=== PATIENT | female | born 1940 | race Caucasian/White ===

== ENCOUNTER 2016-12-27 11:10 | Observation (INO) | payer MEDICARE, BC ==
[2016-12-27] MEDS ORDERED: SODIUM CHLORIDE 0.9% 1,000 ML IV STA (11:51)
[2016-12-27] MEDS ORDERED: ASPIRIN 81 MG CHEW PO STA (11:51)
[2016-12-27 12:05] LABS: Basophils % (A) 1 %; CH 29.5; CHCM 31.6; Eosinophils # (A) 0.2 k/uL (0-0.7); Eosinophils % (A) 3 %; HCT 53.7 % (34.0-46.0); HDW 2.21; HGB 17.8 gm/dL (11.4-16.0); Luc # (Auto) 0.23; Luc % (Auto) 4; Lymphocytes # (A) 0.8 k/uL (1.0-4.8); Lymphocytes % (A) 13 %; MCHC 33.1 g/dL (31.0-37.0); MCV 93.9 fL (80.0-100.0); Mean Platelet Volume 7.4; Monocytes # (A) 0.4 k/uL (0-1.0); Monocytes % (A) 6 %; Neutrophils # (A) 4.7 k/uL (1.3-7.7); Neutrophils % (A) 74 %; RBC 5.72 m/uL (3.80-5.40); RDW 14.7 % (11.5-15.5); WBC 6.3 k/uL (3.8-10.6); WBC (Perox) 6.64
[2016-12-27 12:16] LABS: ALT 33 U/L (9-52); AST 17 U/L (14-36); Alkaline Phosphatase 130 U/L (38-126); Anion Gap 12 mmol/L; Blood Urea Nitrogen 28 mg/dL (7-17); Carbon Dioxide 25 mmol/L (22-30); Chloride 108 mmol/L (98-107); Glucose 109 mg/dL (74-99); Magnesium 2.2 mg/dL (1.6-2.3); Non-African American GFR(MDRD) >60 (>60 ml/min/1.73 sqM); Potassium 4.4 mmol/L (3.5-5.1); Sodium 145 mmol/L (137-145); Total Bilirubin 0.9 mg/dL (0.2-1.3); Total Protein 7.3 g/dL (6.3-8.2)
[2016-12-27 12:17] LABS: INR 1.1 (<1.1); Prothrombin Time 11.2 sec (9.0-12.0)
[2016-12-27 12:26] LABS: Creatine Kinase 85 U/L (30-135)
[2016-12-27 12:40] LABS: Creatine Kinase MB 2.3 ng/mL (0.0-2.4); Troponin I <0.012 ng/mL (0.000-0.034)
--- NOTE | 2016-12-27 14:40 | ED ---
Chest Pain HPI - General Chief Complaint: Chest Pain Stated Complaint: HEAVYNESS IN CHEST, LEFT ARM TINGLING Time Seen by Provider: 12/27/16 11:34 Source: patient Mode of arrival: wheelchair Limitations: no limitations - History of Present Illness Initial Comments: MG chest pain for the last 2 days complaining about the left arm pain actually started tingling in the left forearm saying a chest pain is totally gone right now and there is no tingling in the denies any nausea no vomiting no cold sweats no neck pain no jaw pain and she denies any history of coronary artery disease. No fever no chills no cough no sputum production signs of TIA or CVA - Related Data Home Medications Medication Instructions Recorded Confirmed Aspirin [Adult Low Dose Aspirin EC] 81 mg PO DAILY 12/27/16 12/27/16 Latanoprost [Xalatan 0.005%] 1 drop RIGHT EYE BID 12/27/16 12/27/16 Loteprednol Etabonate [Lotemax] 1 drop LEFT EYE HS 12/27/16 12/27/16 Montelukast Sodium [Singulair] 10 mg PO DAILY 12/27/16 12/27/16 Multivitamins, Thera [Multivitamin 1 tab PO DAILY 12/27/16 12/27/16 (formulary)] Naproxen Sodium [Aleve] 220 mg PO DAILY PRN 12/27/16 12/27/16 Propylene Glycol/Peg 400/Pf 1 drop LEFT EYE DAILY PRN 12/27/16 12/27/16 [Systane 0.3-0.4% Eye Drops] Refresh Pm Eye Ointment 1 applic RIGHT EYE BID 12/27/16 12/27/16 Travoprost [Travatan Z 0.004%] 1 drop RIGHT EYE HS 12/27/16 12/27/16 amLODIPine/ATORVASTATIN [Caduet 10 1 tab PO DAILY 12/27/16 12/27/16 mg-20 mg Tablet] Allergies Allergy/AdvReac Type Severity Reaction Status Date / Time No Known Allergies Allergy Verified 12/27/16 12:25 Review of Systems ROS Statement: Those systems with pertinent positive or pertinent negative responses have been documented in the HPI. ROS Other: All systems not noted in ROS Statement are negative. 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 Skin: Skin is warm and dry and no rashes or lesions are noted. Eye: Pupils are equal, round and reactive to light, extra-ocular movements are intact; there is normal conjunctiva bilaterally. Ears, nose, mouth and throat: There are moist mucous membranes and no oral lesions. Neck: The neck is supple, there is no tenderness or JVD. Cardiovascular: There is a regular rate and rhythm. No murmur, rub or gallop is appreciated. Respiratory: To auscultation bilateral, noticed some crackles at the bases Gastrointestinal: Soft, non-distended, non-tender abdomen without masses or organomegaly noted. There is no rebound or guarding present. Bowel sounds are unremarkable. Back: There is no tenderness to palpation in the midline. There is no obvious deformity. Musculoskeletal: Normal ROM, no tenderness, There is no pedal edema. There is no calf tenderness or swelling. No cords were appreciated. Neurological: CN II-XII intact, Cranial nerves III through XII are intact. There are no obvious motor or sensory deficits. Coordination appears grossly intact. Speech is normal. Psychiatric: Cooperative, appropriate mood & affect, normal judgment. Limitations: no limitations Course Vital Signs 12/27/16 12/27/16 12/27/16 11:20 12:22 13:00 Temperature 97.8 F Pulse Rate 80 84 84 Respiratory 20 18 18 Rate Blood Pressure 178/78 165/82 148/78 O2 Sat by Pulse 98 93 L 94 L Oximetry 12/27/16 14:56 Temperature 98.2 F Pulse Rate 86 Respiratory 18 Rate Blood Pressure 153/67 O2 Sat by Pulse 93 L Oximetry Labs and x-rays were discussed with the patient, CBC, CMP, troponin, EKG are unremarkable chest x-ray showed cardiomegaly COPD and there is a question of a chest pathology radiologist recommended doing chest CT and we ordered the chest CT, these were discussed with the patient and considering her chest pain plan to admit her heparinize her consult cardiology and Dr. Helms for any lung pathology Critical Care Time Total Critical Care Time: 35 Critical Care Time: She had a chest pain off and on for last 2 days pain down the left arm pain that she is a ex-smoker there are quite a few risk factors though she hasn't no chest pain at this point her CBC troponin S compress metabolic panel they look normal ROM chest x-ray shows cardiomegaly's and COPD and a suspicion of lung pathology. Radiology recommended chest CT which was ordered the patient was informed patient agrees to come in the hospital and did do the chest CT both will consult cardiology for chest pain" Disposition Clinical Impression: Chest pain, Cardiomegaly, COPD (chronic obstructive pulmonary disease) Disposition: ADMITTED IP TO THIS HOSP Condition: Fair
--- NOTE | 2016-12-27 15:45 | XR ---
EXAMINATION TYPE: XR chest 2V DATE OF EXAM: 12/27/2016 12:04 PM HISTORY: Chest Pain. REFERENCE: NONE. FINDINGS: The lungs are overinflated. There is partial eventration of the right hemidiaphragm. There is a masslike density posteriorly on the left. This may represent a Bochdalek hernia. Left pleural ma ss is not excluded. Heart size upper limits of normal. There are increased interstitial markings like ly on the basis of fibrosis. Pleural spaces are clear. IMPRESSION: 1. CARDIOMEGALY. 2. COPD. 3. 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 A CT SCAN OF THE CHEST WOULD BE SUGGESTED TO EXCLUDE NEOPLA SM.
[2016-12-27] MEDS ORDERED: RX INFO: IV CONTRAST WAS GIVEN 1 EACH MISC MISCELLANE PRN (15:55)
[2016-12-27] MEDS ORDERED: NITROGLYCERIN SL TABS 0.4 MG TAB SUBLINGUAL PRN (16:02)
[2016-12-27] MEDS ORDERED: MORPHINE SULFATE 2 MG/ML SYRINGE IVP PRN (16:02)
[2016-12-27] MEDS ORDERED: HEPARIN SODIUM,PORCINE 5,000 UNIT/ML 1 ML VIAL IV ONE (16:02)
[2016-12-27] MEDS ORDERED: ARTIFICIAL TEARS-HYPROMELLOSE DROPS 15 ML BTL LEFT EYE PRN (16:06)
[2016-12-27] MEDS ORDERED: HEPARIN SODIUM,PORCINE/D5W PMX 25,000 UNIT in DEXTROSE/WATER 1 500ML.BAG IV SCH (16:15)
--- NOTE | 2016-12-27 16:40 | CT ---
EXAMINATION TYPE: CT chest w con DATE OF EXAM: 12/27/2016 4:29 PM COMPARISON: NONE HISTORY: Chest heaviness x couple days, abnormal chest x-ray. CT DLP: 603.00 mGycm Automated exposure control for dose reduction was used. CONTRAST: CT scan of the chest is performed with IV Contrast, patient injected with 100 mL of Omnipaque 300. FINDINGS: There is apical scarring present bilaterally. There are emphysematous changes throughout the lungs. There is a 5 mm noncalcified nodule in the lateral basal segment of the right lower lobe, best seen o n image 50. There are bilateral areas of consolidation in the left lingula as well as the right middl e lobe. There is a 5.6 mm noncalcified nodule in the right middle lobe, best seen on image 46. There is a 4.3 mm noncalcified nodule in the lateral aspect of the left lingula, best seen on image 46. The re is a calcified granuloma in the lateral basal segment of the left lower lobe, best seen on image 4 7. There is no significant axillary, internal mammary, mediastinal or hilar adenopathy. The heart is mildly enlarged. There is no pleural or pericardial fluid. There is a partial eventration of the left hemidiaphragm which is what accounts for the x-ray abnorma lity. Visualized portions of the upper abdomen are normal. There is mild hypertrophic spondylosis in the spine. IMPRESSION: 1. PARTIAL EVENTRATION OF THE LEFT HEMIDIAPHRAGM. 2. MULTIPLE NONCALCIFIED PULMONARY NODULES AND ONE CALCIFIED PULMONARY NODULES. 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 3 MONTHS FOLLOW-UP WOULD BE SUGGESTED. 3. MILD CARDIOMEGALY. 4. MINIMAL DEGENERATIVE CHANGE IN THE SPINE.
[2016-12-27 16:59] VITALS: BMI 27.1
[2016-12-27 18:38] LABS: Creatine Kinase 81 U/L (30-135)
[2016-12-27 18:51] LABS: Troponin I <0.012 ng/mL (0.000-0.034)
[2016-12-27 19:55] VITALS: RESP 16
[2016-12-27] MEDS ORDERED: prednisoLONE ACETATE 1% OPHTH DROPS 1 ML BTL LEFT EYE SCH (21:00)
[2016-12-27] MEDS ORDERED: ATORVASTATIN 40 MG TAB PO SCH (21:00)
[2016-12-27] MEDS ORDERED: NON-FORMULARY DRUG (Travoprost [Travatan Z 0.004%] 1 DROP) RIGHT EYE SCH (21:00)
[2016-12-27] MEDS: LATANOPROST 0.005% OPHTH DROPS 2.5 ML BTL RIGHT EYE SCH (22:06)
[2016-12-27] MEDS: ARTIFICIAL TEARS OINTMENT 3.5 GM TUBE RIGHT EYE SCH (22:07)
[2016-12-27 23:40] LABS: Creatine Kinase 87 U/L (30-135)
[2016-12-27 23:54] LABS: Creatine Kinase MB 1.9 ng/mL (0.0-2.4); Troponin I <0.012 ng/mL (0.000-0.034)
[2016-12-28 06:12] LABS: Cholesterol 109 mg/dL (<200); HDL Cholesterol 43 mg/dL (40-60); Triglycerides 95 mg/dL (<150)
[2016-12-28] MEDS ORDERED: amLODIPine 10 MG TAB PO SCH (09:00)
[2016-12-28] MEDS ORDERED: ASPIRIN 325 MG TAB PO SCH (09:00)
[2016-12-28] MEDS ORDERED: ATORVASTATIN 20 MG TAB PO SCH (09:00)
[2016-12-28] MEDS ORDERED: MONTELUKAST 10 MG TAB PO SCH (09:00)
[2016-12-28] MEDS ORDERED: AMINOPHYLLINE 500 MG/20 ML VIAL IV PRN (09:01)
[2016-12-28] MEDS ORDERED: REGADENOSON 0.4 MG/5 ML SYRINGE IV ONE (09:01)
--- NOTE | 2016-12-28 11:19 | CONS ---
DATE OF CONSULTATION: This is a 76-year-old lady with a history of hypertension, hypercholesterolemia and congenital bilateral facial nerve palsy. She is not a very active person. She has been doing fairly well, but for the past one week or so, she has been experiencing pressure in the chest that she describes as a sensation of heaviness as if somebody is pushing on her chest. These symptoms have been very random, not necessarily with physical activity. She also had some left arm pain and a sensation of tingling and came into the hospital. The pain has now resolved. She is comfortable, resting. She also carries a diagnosis of bronchial asthma and used to be a smoker who quit smoking more than 20 years ago. She is comfortable and without symptoms at the time of my evaluation. PAST MEDICAL HISTORY: 1. Hypertension. 2. Hypercholesterolemia. 3. Bronchial asthma. 4. No documented evidence of prior myocardial infarction or CVA. 5. She is status post cataract surgery and also surgery for her eyelids. Medications at home include Caduet which is amlodipine and atorvastatin combination 10/20 one tablet daily, multivitamins, Naproxen. She also takes some aspirin 81 mg daily. ALLERGIES: None. REVIEW OF SYSTEMS: Unremarkable other than the above-mentioned facts. On examination, blood pressure is 138/70, pulse rate is 70 per minute. When she came in the pressure was elevated. HEENT: Unremarkable. Fundus was not examined by me. There is evidence of some facial nerve palsy noted bilaterally. Neck is supple. There is no JVD or carotid bruit. Heart exam reveals S1 and S2 heard normally without a rub, murmur or gallop. Lungs are clear. Abdomen is soft, nontender. Lower extremities reveal normal pulses. No edema. Central nervous system is normal. EKG revealed sinus mechanism. No acute changes. Laboratory data reveals that her enzymes are normal. Also there was some abnormality on the chest x-ray, CAT scan revealed some granulomatous changes. Patient's troponin levels are all within normal limits. IMPRESSION: 1. Chest pain syndrome, cannot exclude coronary artery disease in a patient with hypertension, hyperlipidemia, and 76 years of age. 2. Hypertension. 3. Hyperlipidemia. 4. History of congenital facial nerve palsy. RECOMMENDATIONS: I am recommending that we will discontinue IV heparin, perform a Lexiscan stress test and echocardiogram and if these are normal, she can be discharged. Will continue all her other medications. I discussed my thoughts in detail with the patient. Thank you very much for the consult.
--- NOTE | 2016-12-28 11:33 | NM ---
EXAMINATION TYPE: NM stress lexiscan cardiolite DATE OF EXAM: 12/28/2016 11:19 AM COMPARISON: CT chest from yesterday HISTORY: Chest pain per order. History of hypertension, tobacco use remotely, and hypercholesteremia presents with chest pain and shortness of breath. TECHNIQUE: After the intravenous administration of 10.8 mCi Tc 99m Sestamibi - Cardiolite resting SP ECT images acquired 45 minutes post injection. The patient received 0.4mg Lexiscan, 27 mCi Tc 99m Sestamibi - Stress images obtained 30 minutes post injection FINDINGS: Review of stress and rest SPECT images demonstrates no distinct perfusion abnormality. Gated analysi s shows normal wall motion with an estimated left ventricular ejection fraction of 57 %. IMPRESSION: No scintigraphic evidence for reversible ischemia.
--- NOTE | 2016-12-28 11:57 | EST ---
DATE OF SERVICE: 12/28/2016 AGE: 76Y SEX: F HT: 66" WT: 168 lbs. Protocol Eligio: Other: Lexiscan Cardiolite Stage: Dur. of Exercise: *Heart Rate Blood Pressure *Rest: 69 Rest: 166/92 * *Max. Achieved: 84 Maximum BP: 166/92 85% PMHR: 122 100% PMHR: 144 *METS: INDICATIONS: MEDICATIONS: Patient was given Lexiscan injection over a period of 15 seconds. Resting EKG shows normal sinus rhythm with normal AR interval and QRS duration and normal ST-T waves. No ST segment depression suggestive of ischemia was noted. The results of the nuclear study will follow.
[2016-12-28] MEDS ORDERED: MULTIVITAMINS, THERA 1 EACH TAB PO SCH (12:00)
[2016-12-28] MEDS: LATANOPROST 0.005% OPHTH DROPS 2.5 ML BTL RIGHT EYE SCH (12:15)
[2016-12-28] MEDS: ARTIFICIAL TEARS OINTMENT 3.5 GM TUBE RIGHT EYE SCH (12:16)
[2016-12-28 12:30] VITALS: BP 170/86; PULSE 76; TEMP 97.9
--- NOTE | 2016-12-28 13:51 | ECHOF ---
Referral Reason:htn, SOB MEASUREMENTS -------- HEIGHT: 167.6 cm WEIGHT: 76.2 kg BP: 138/71 RVIDd: 2.6 cm (< 3.3) IVSd: 1.3 cm (0.6 - 1.1) LVIDd: 3.1 cm (3.9 - 5.3) LVPWd: 1.2 cm (0.6 - 1.1) IVSs: 1.7 cm LVIDs: 2.3 cm LVPWs: 1.4 cm LA Diam: 3.0 cm (2.7 - 3.8) LAESV Index (A-L): 19.40 ml/m Ao Diam: 2.7 cm (2.0 - 3.7) AV Cusp: 1.7 cm (1.5 - 2.6) LA Diam: 2.6 cm (2.7 - 3.8) MV EXCURSION: 13.059 mm (> 18.000) MV EF SLOPE: 59 mm/s (70 - 150) EPSS: 0.6 cm MV E Abebe: 0.57 m/s MV DecT: 198 ms MV A Abebe: 0.89 m/s MV E/A Ratio: 0.64 RAP: 5.00 mmHg RVSP: 41.32 mmHg FINDINGS -------- Sinus rhythm. This was a technically good study. There is mild concentric left ventricular hypertrophy. Overall left ventricular systolic function is normal with, an EF between 55 - 60 %. The right ventricle is normal in size. Normal LA size by volume 22+/-6 ml/m2. The right atrium is normal in size. Aortic valve is trileaflet and is mildly thickened. There is mild aortic regurgitation. The mitral valve leaflets are mildly thickened. Mild mitral annular calcification present. There is trace mitral regurgitation. Mild tricuspid regurgitation present. There is mild pulmonary hypertension. The right ventricular systolic pressure, as measured by Doppler, is 41.32mmHg. Trace/mild (physiologic) pulmonic regurgitation. The aortic root size is normal. Normal inferior vena cava with normal inspiratory collapse consistent with estimated right atrial pressure of 5 mmHg. There is no pericardial effusion. CONCLUSIONS -------- 1. Sinus rhythm. 2. The mitral valve leaflets are mildly thickened. 3. Mild mitral annular calcification present. 4. There is trace mitral regurgitation. 5. Mild tricuspid regurgitation present. 6. There is mild pulmonary hypertension. 7. The right ventricular systolic pressure, as measured by Doppler, is 41.32mmHg. 8. Trace/mild (physiologic) pulmonic regurgitation. 9. The aortic root size is normal. 10. Normal inferior vena cava with normal inspiratory collapse consistent with estimated right atrial pressure of 5 mmHg. 11. There is no pericardial effusion. 12. This was a technically good study. 13. There is mild concentric left ventricular hypertrophy. 14. Overall left ventricular systolic function is normal with, an EF between 55 - 60 %. 15. The right ventricle is normal in size. 16. Normal LA size by volume 22+/-6 ml/m2. 17. The right atrium is normal in size. 18. Aortic valve is trileaflet and is mildly thickened. 19. There is mild aortic regurgitation. [employer] MECH[employer]IC: Mukund Garcia RDCS
--- NOTE | 2016-12-28 14:49 | P.HPIM ---
History of Present Illness H&P Date: 12/28/16 Chief Complaint: Chest pain This is a 76-year-old female with past medical history significant for hypertension, hyperlipidemia, and congenital bilateral facial nerve palsy who presented to the emergency room with chest pain. Patient described her pain as heaviness in the middle of her chest. She has been having this pain on and off for the past couple of weeks. Yesterday the pain was approximately 8 out of 10 in severity. It radiated to her shoulder. She had some numbness in her arm and diaphoresis. She denies dizziness or shortness of breath. In the emergency room, 12-lead EKG showed no acute ischemic changes. Serial troponin were negative 3 sets. Patient underwent a computed tomography scan of the chest showing evidence of underlying COPD with multiple small pulmonary nodules Thought to be attributed to an old granulomatous disease. Repeat computed tomography scan of the chest in 3 months recommended. Patient was placed on observation was seen and evaluated by cardiology. She underwent a Lexiscan stress test that was negative. She was cleared for discharge home. She will follow-up with her primary care physician as directed. All other medical problems stable during this hospitalization. Review of Systems Review of system: 14 points review of systems were obtained and were negative except to what were mentioned in the HPI. 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, LEFT EYE CATARACT REMOVED, NO SITE IN RIGHT EYE History of Any Multi-Drug Resistant Organisms: None Reported Past Surgical History: Tonsillectomy, Tubal Ligation Additional Past Surgical History / Comment(s): eye surgery Past Anesthesia/Blood Transfusion Reactions: No Reported Reaction Past Psychological History: No Psychological Hx Reported Smoking Status: Former smoker Past Alcohol Use History: None Reported Past Drug Use History: None Reported - Past Family History Father Additional Family Medical History / Comment(s): BONE AND LIVER CANCER Mother Additional Family Medical History / Comment(s): MOTHER AT 25 YEARS OLD, UNKNOWN Medications and Allergies Home Medications Medication Instructions Recorded Confirmed Type Aspirin [Adult Low Dose Aspirin EC] 81 mg PO DAILY 12/27/16 12/27/16 History Latanoprost [Xalatan 0.005%] 1 drop RIGHT EYE BID 12/27/16 12/27/16 History Loteprednol Etabonate [Lotemax] 1 drop LEFT EYE HS 12/27/16 12/27/16 History Montelukast Sodium [Singulair] 10 mg PO DAILY 12/27/16 12/27/16 History Multivitamins, Thera [Multivitamin 1 tab PO DAILY 12/27/16 12/27/16 History (formulary)] Naproxen Sodium [Aleve] 220 mg PO DAILY PRN 12/27/16 12/27/16 History Propylene Glycol/Peg 400/Pf 1 drop LEFT EYE DAILY PRN 12/27/16 12/27/16 History [Systane 0.3-0.4% Eye Drops] Refresh Pm Eye Ointment 1 applic RIGHT EYE BID 12/27/16 12/27/16 History Travoprost [Travatan Z 0.004%] 1 drop RIGHT EYE HS 12/27/16 12/27/16 History amLODIPine/ATORVASTATIN [Caduet 10 1 tab PO DAILY 12/27/16 12/27/16 History mg-20 mg Tablet] Allergies Allergy/AdvReac Type Severity Reaction Status Date / Time No Known Allergies Allergy Verified 12/27/16 12:25 Physical Exam Vitals: Vital Signs Temp Pulse Pulse Resp BP Pulse Ox 12/28/16 12:00 97.9 F 76 76 16 170/86 94 L 12/28/16 08:00 98.0 F 76 70 16 139/71 93 L 12/28/16 04:00 98.2 F 76 16 187/70 93 L 12/28/16 00:00 16 12/27/16 23:53 97.9 F 74 16 119/69 93 L 12/27/16 20:33 97.6 F 87 16 140/74 98 12/27/16 20:00 16 12/27/16 19:54 97.6 F 87 16 140/74 98 12/27/16 17:36 97.3 F L 108 H 18 178/88 12/27/16 16:28 97.3 F L 16 178/88 Intake and Output 12/27/16 12/28/16 12/28/16 22:59 06:59 14:59 Intake Total 665 Balance 665 Intake: IV 415 Heparin Sodium,Porcine/ 115 D5w Pmx 25,000 unit In Dextrose/Water 1 500ml. bag @ 12 UNITS/KG/HR 18. 28 mls/hr IV .Q24H [facility] Rx #:[id number] Sodium Chloride 0.9% 1, 300 000 ml @ 50 mls/hr IV . Q20H [facility] Rx#:[id number] Oral 250 Other: Voiding Method Toilet Toilet Toilet # Voids 1 2 2 Weight 76.204 kg General: The patient is awake and alert, in no distress Eye: there is normal conjunctiva bilaterally. Neck: The neck is supple, there is no JVD. Cardiovascular: Normal S1-S2, no S3-S4, no murmurs. Respiratory: Lungs clear to auscultation bilaterally Gastrointestinal: Abdomen is soft, nontender Musculoskeletal: There is no pedal edema. Results CBC & Chem 7: 12/27/16 11:38 12/27/16 11:38 Labs: Abnormal Lab Results - Last 24 Hours (Table) 12/27/16 12/28/16 Range/Units 22:53 05:31 APTT 65.9 H 55.9 H (22.0-30.0) sec Thrombosis Risk Factor Assmnt - Choose All That Apply Any of the Below Risk Factors Present?: No Other Risk Factors: Yes Each Risk Factor Represents 3 Points: Age 75 years or older Other congenital or acquired thrombophilia - If yes, enter type in comment: No Thrombosis Risk Factor Assessment Total Risk Factor Score: 3 Thrombosis Risk Factor Assessment Level: Moderate Risk Assessment and Plan Plan: This is a 76-year-old female with past medical history significant for hypertension, hyperlipidemia, and congenital bilateral facial nerve palsy who presented to the emergency room with chest pain. Patient described her pain as heaviness in the middle of her chest. She has been having this pain on and off for the past couple of weeks. Yesterday the pain was approximately 8 out of 10 in severity. It radiated to her shoulder. She had some numbness in her arm and diaphoresis. She denies dizziness or shortness of breath. In the emergency room, 12-lead EKG showed no acute ischemic changes. Serial troponin were negative 3 sets. Patient underwent a computed tomography scan of the chest showing evidence of underlying COPD with multiple small pulmonary nodules Thought to be attributed to an old granulomatous disease. Repeat computed tomography scan of the chest in 3 months recommended. Patient was placed on observation was seen and evaluated by cardiology. She underwent a Lexiscan stress test that was negative. She was cleared for discharge home. She will follow-up with her primary care physician as atelectasis.
--- NOTE | 2016-12-28 14:50 | P.DS ---
Providers Date of admission: 12/27/16 16:15 Expected date of discharge: 12/28/16 Attending physician: Zena Zavala Primary care physician: Scott [facility] Course: This is a 76-year-old female with past medical history significant for hypertension, hyperlipidemia, and congenital bilateral facial nerve palsy who presented to the emergency room with chest pain. Patient described her pain as heaviness in the middle of her chest. She has been having this pain on and off for the past couple of weeks. Yesterday the pain was approximately 8 out of 10 in severity. It radiated to her shoulder. She had some numbness in her arm and diaphoresis. She denies dizziness or shortness of breath. In the emergency room, 12-lead EKG showed no acute ischemic changes. Serial troponin were negative 3 sets. Patient underwent a computed tomography scan of the chest showing evidence of underlying COPD with multiple small pulmonary nodules Thought to be attributed to an old granulomatous disease. Repeat computed tomography scan of the chest in 3 months recommended. Patient was placed on observation was seen and evaluated by cardiology. She underwent a Lexiscan stress test that was negative. She was cleared for discharge home. She will follow-up with her primary care physician as atelectasis. Patient Condition at Discharge: Fair Plan - Discharge Summary Discharge Medication List Aspirin [Adult Low Dose Aspirin EC] 81 mg PO DAILY 12/27/16 [History] Latanoprost [Xalatan 0.005%] 1 drop RIGHT EYE BID 12/27/16 [History] Loteprednol Etabonate [Lotemax] 1 drop LEFT EYE HS 12/27/16 [History] Montelukast Sodium [Singulair] 10 mg PO DAILY 12/27/16 [History] Multivitamins, Thera [Multivitamin (formulary)] 1 tab PO DAILY 12/27/16 [History ] Naproxen Sodium [Aleve] 220 mg PO DAILY PRN 12/27/16 [History] Propylene Glycol/Peg 400/Pf [Systane 0.3-0.4% Eye Drops] 1 drop LEFT EYE DAILY PRN 12/27/16 [History] Refresh Pm Eye Ointment 1 applic RIGHT EYE BID 12/27/16 [History] Travoprost [Travatan Z 0.004%] 1 drop RIGHT EYE HS 12/27/16 [History] amLODIPine/ATORVASTATIN [Caduet 10 mg-20 mg Tablet] 1 tab PO DAILY 12/27/16 [ History] Follow up Appointment(s)/Referral(s): Scott Camargo MD [Primary Care Provider] - 1-2 days Discharge Disposition: HOME SELF-CARE
== END 2016-12-28 15:37 | disposition home or self-care (01) ==
LOC: EC 11:10 → 3OBS 16:15
PROVIDERS: ADMIT Internal Medicine; ATTEND Internal Medicine
DX: J44.9 Chronic obstructive pulmonary disease, unspecified (principal); I11.9 Hypertensive heart disease without heart failure; E78.00 Pure hypercholesterolemia, unspecified; E78.5 Hyperlipidemia, unspecified; J45.909 Unspecified asthma, uncomplicated; J98.11 Atelectasis; Z79.82 Long term (current) use of aspirin; Z79.899 Other long term (current) drug therapy; Z87.891 Personal history of nicotine dependence; R07.9 Chest pain, unspecified; R20.2 Paresthesia of skin; M79.602 Pain in left arm; P11.3 Birth injury to facial nerve; R20.0 Anesthesia of skin; R61 Generalized hyperhidrosis
CPT/HCPCS: 99291 ×2; 36415; 93017; 93306; 80061; 80053; 82550; 82553; 83735; 84484; 85025; 85610; 85730 ×2; 71020; 71260; 78452; G0378 ×2; A9500; J1644 ×2; Q9967; J2785; 93005; 96366

== ENCOUNTER 2019-08-20 13:42 | Emergency (ER) | payer MEDICARE, BC ==
[2019-08-20 13:46] VITALS: BP 150/89; PULSE 68; RESP 16; TEMP 97.2
[2019-08-20] MEDS ORDERED: MORPHINE SULFATE 4 MG/ML SYRINGE IVP STA (13:54)
--- NOTE | 2019-08-20 14:24 | ED ---
Fall HPI <Morris Lindsey - Last Filed: 08/20/19 15:09> - General Source: EMS Mode of arrival: EMS <Mayi Navarro - Last Filed: 08/20/19 15:34> - General Chief Complaint: Fall Stated Complaint: Fell/arm injury Time Seen by Provider: 08/20/19 13:50 - History of Present Illness Initial Comments: Patient is a 78-year-old female presenting to the emergency Department with complaints of left arm pain after falling on it today. Patient states she tripped and fell landing mostly on her left shoulder and left arm. Patient den ies hitting her head or any other injuries from this fall. Patient states she is unable to move her left upper arm. Patient denies pain in her left hand or wrist. Patient does have some mild pain in her left elbow. Patient has no other complaints at this time. Upon arrival to the ER, vital signs are stable. (Mayi Navarro) - Related Data Home Medications Medication Instructions Recorded Confirmed Aspirin [Adult Low Dose Aspirin EC] 81 mg PO DAILY 12/27/16 12/27/16 Latanoprost [Xalatan 0.005%] 1 drop RIGHT EYE BID 12/27/16 12/27/16 Loteprednol Etabonate [Lotemax] 1 drop LEFT EYE HS 12/27/16 12/27/16 Montelukast Sodium [Singulair] 10 mg PO DAILY 12/27/16 12/27/16 Multivitamins, Thera [Multivitamin 1 tab PO DAILY 12/27/16 12/27/16 (formulary)] Naproxen Sodium [Aleve] 220 mg PO DAILY PRN 12/27/16 12/27/16 Propylene Glycol/Peg 400/Pf 1 drop LEFT EYE DAILY PRN 12/27/16 12/27/16 [Systane 0.3-0.4% Eye Drops] Refresh Pm Eye Ointment 1 applic RIGHT EYE BID 12/27/16 12/27/16 Travoprost [Travatan Z 0.004%] 1 drop RIGHT EYE HS 12/27/16 12/27/16 amLODIPine/ATORVASTATIN [Caduet 10 1 tab PO DAILY 12/27/16 12/27/16 mg-20 mg Tablet] Allergies Allergy/AdvReac Type Severity Reaction Status Date / Time No Known Allergies Allergy Verified 08/20/19 13:46 Review of Systems ROS Other: All systems not noted in ROS Statement are negative. <CésarMorris - Last Filed: 08/20/19 15:09> ROS Other: All systems not noted in ROS Statement are negative. <Mayi Navarro - Last Filed: 08/20/19 15:34> ROS Statement: Those systems with pertinent positive or pertinent negative responses have been documented in the HPI. 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, LEFT EYE CATARACT REMOVED, NO SITE IN RIGHT EYE History of Any Multi-Drug Resistant Organisms: None Reported Past Surgical History: Tonsillectomy, Tubal Ligation Additional Past Surgical History / Comment(s): eye surgery Past Anesthesia/Blood Transfusion Reactions: No Reported Reaction Past Psychological History: No Psychological Hx Reported Smoking Status: Former smoker Past Alcohol Use History: None Reported Past Drug Use History: None Reported - Past Family History Father Additional Family Medical History / Comment(s): BONE AND LIVER CANCER Mother Additional Family Medical History / Comment(s): MOTHER AT 25 YEARS OLD, UN KNOWN <Mayi Navarro - Last Filed: 08/20/19 15:34> General Exam Limitations: no limitations <Mayi Navarro - Last Filed: 08/20/19 15:34> - General Exam Comments Initial Comments: GENERAL: Well-appearing, well-nourished and in no acute distress, but looks uncomfortable. HEAD: Atraumatic, normocephalic. EYES: Pupils equal round and reactive to light, extraocular movements intact, sclera anicteric, conjunctiva are normal. ENT: Nares patent, oropharynx clear without exudates. Moist mucous membranes. NECK: Normal range of motion, supple without lymphadenopathy or JVD. LUNGS: Breath sounds clear to auscultation bilaterally and equal. No wheezes rales or rhonchi. HEART: Regular rate and rhythm without murmurs, rubs or gallops. ABDOMEN: Soft, nontender, normoactive bowel sounds. No guarding, no rebound. No masses appreciated. EXTREMITIES: Patient arrives with her left upper extremity in a sling. Patient has pain with palpation of the left upper arm. Any motion of the left shoulder increases estefany n. Patient is neurovascular intact. Patient has no pain with palpation of the left hand, wrist, forearm. There is some mild pain of the lateral left elbow. NEUROLOGICAL: Cranial nerves II through XII grossly intact. Normal speech, normal gait. PSYCH: Normal mood, normal affect. SKIN: Warm, Dry, normal turgor, no rashes or lesions noted. (Mayi Navarro) Course <Morris Lindsey - Last Filed: 08/20/19 15:09> Vital Signs 08/20/19 13:44 Temperature 97.2 F L Pulse Rate 68 Respiratory 16 Rate Blood Pressure 150/89 O2 Sat by Pulse 94 L Oximetry - Reevaluation(s) Reevaluation #1: 08/20/19 15:09 PA supervision: I proceeded [id number] evaluation the patient she did fall and did sustain a left proximal humerus fracture. She did use a sling that she had at home at this time there is no other injuries. I did review the imaging and report I did discuss findings the patient and her family members. I do agree with the assessment and plan. Patient will be discharged with orthopedic follow-up outpatient. The exam feels no evidence of distal vascular compromise. Also no neural compromise. (Morris Lindsey) Medical Decision Making <Mayi Navarro - Last Filed: 08/20/19 15:34> - Medical Decision Making Patient is a 70-year-old female presenting with left upper arm pain after falling on it today. X-rays of the left humerus reveal an acute comminuted minimal displaced impacted fracture of the surgical neck of the left proximal humerus. Chest x-ray shows no acute pulmonary process. Patient was given pain medicine. Patient was placed in a sling and will follow up with orthopedics tomorrow. Patient was given a prescription for Ultram to use as needed for pain. Patient is stable for discharge at this time and she is in agreement with this plan of care. Return parameters were discussed with the patient and she verbalized understanding. Case discussed with Dr. Lindsey who also evaluated the patient and agrees with this plan of care. (Mayi Navarro) Disposition <Morris Lindsey - Last Filed: 08/20/19 15:09> Is patient prescribed a controlled substance at d/c from ED?: No <Mayi Navarro - Last Filed: 08/20/19 15:34> Clinical Impression: Fall, Fracture of surgical neck of left humerus Disposition: HOME SELF-CARE Condition: Stable Instructions (If sedation given, give patient instructions): Proximal Humerus Fracture (ED) Additional Instructions: Please return to the Emergency Department if symptoms worsen or any other concerns. Follow-up with orthopedics tomorrow as discussed. Take pain medication as needed. May use ice for pain relief. Keep in sling. Referrals: Scott Camargo MD [Primary Care Provider] - 1-2 days Marcelo Hein DO [Doctor of Osteopathic Medicine] - 1-2 days
--- NOTE | 2019-08-20 14:33 | XR ---
EXAMINATION TYPE: XR shoulder complete LT, XR humerus LT, XR elbow limited LT DATE OF EXAM: 08/20/2019 CLINICAL HISTORY: TECHNIQUE: 2 views of the left shoulder and humerus are performed. 3 views left elbow are acquired. COMPARISON: None. FINDINGS: Osseous structures are demineralized. There is acute comminuted minimally displaced impacte d fracture surgical neck left proximal humerus. No glenohumeral joint dislocation. Acromioclavicular joint shows [id number] narrowing. Visualized ribs are intact. Images of the left humerus show no additional acute fracture distally. Overlying bra strap is partial ly imaged. Images of left elbow suboptimal due to overlying blanket material. No acute fracture is clearly seen. No abnormal fat pad signs are present. IMPRESSION: There is an acute comminuted minimally displaced impacted fracture surgical neck left pr oximal humerus. (Initial encounter closed type posttraumatic fracture)
--- NOTE | 2019-08-20 14:36 | XR ---
EXAMINATION TYPE: XR chest 1V DATE OF EXAM: 08/20/2019 COMPARISON: Chest x-ray and CT chest December 27, 2016. HISTORY: Fall injury with pain. TECHNIQUE: Single frontal view of the chest is obtained. FINDINGS: Overlying bra strap is seen. There is poor inspiration. There is chronic parenchymal change without suspicious focal airspace opacity, pleural effusion, or pneumothorax. The cardiac silhouette size is upper limits of normal. The osseous structures are demineralized. Acute comminuted slightl y displaced fracture surgical neck left proximal humerus is partially imaged. IMPRESSION: For inspiration and chronic parenchymal changes without suspicious acute pulmonary proce ss.
[2019-08-20] MEDS ORDERED: traMADol 50 MG STARTER PACK 3 TAB BTL PO STA (15:04)
== END 2019-08-20 15:19 | disposition home or self-care (01) ==
LOC: EC 13:42
DX: S42.212A Unspecified displaced fracture of surgical neck of left humerus, initial encounter for closed fracture (principal); I10 Essential (primary) hypertension; Z98.49 Cataract extraction status, unspecified eye; Z87.891 Personal history of nicotine dependence; Z79.82 Long term (current) use of aspirin; Z79.899 Other long term (current) drug therapy; W01.0XXA Fall on same level from slipping, tripping and stumbling without subsequent striking against object, initial encounter; Y92.009 Unspecified place in unspecified non-institutional (private) residence as the place of occurrence of the external cause
CPT/HCPCS: 73030; 73060; 73070; 71045; 99284; 96374; J2270

== ENCOUNTER → 2019-10-12 | Outpatient (CLI) | payer MEDICARE, BC ==
--- NOTE | 2019-10-12 11:06 | US ---
EXAMINATION TYPE: US gallbladder DATE OF EXAM: 10/12/2019 COMPARISON: NONE CLINICAL HISTORY: R11.2 NAUSEA AND VOMITING,R10.84 ABD PAIN. Right side pain. NPO. EXAM MEASUREMENTS: Liver Length: 16.3 cm Gallbladder Wall: 0.2 cm CBD: 0.5 cm Right Kidney: 10.8 x 3.6 x 2.8 cm Pancreas: Appears echogenic in appearance Liver: wnl Gallbladder: wnl Evidence for sonographic Caceres's sign: neg CBD: wnl Right Kidney: No hydronephrosis or masses seen IMPRESSION: No distinct abnormality appreciated.
== END | disposition home or self-care (01) ==
LOC: RADUSWWP 10:15
PROVIDERS: ATTEND Internal Medicine
DX: R11.2 Nausea with vomiting, unspecified (principal); R10.84 Generalized abdominal pain
CPT/HCPCS: 76705

== ENCOUNTER 2019-10-17 21:02 | Emergency (ER) | payer MEDICARE, BC ==
[2019-10-17 22:01] LABS: Basophils # (A) 0.1 k/uL (0-0.2); Basophils % (A) 1 %; Eosinophils # (A) 0.1 k/uL (0-0.7); Eosinophils % (A) 1 %; HCT 42.9 % (34.0-46.0); HGB 13.8 gm/dL (11.4-16.0); Lymphocytes # (A) 0.9 k/uL (1.0-4.8); Lymphocytes % (A) 7 %; MCH 30.1 pg (25.0-35.0); MCHC 32.1 g/dL (31.0-37.0); MCV 93.7 fL (80.0-100.0); Mean Platelet Volume 8.4; Monocytes # (A) 0.5 k/uL (0-1.0); Monocytes % (A) 5 %; Neutrophils % (A) 85 %; Platelet Count 288 k/uL (150-450); RBC 4.58 m/uL (3.80-5.40); RDW 14.5 % (11.5-15.5); WBC 11.8 k/uL (3.8-10.6)
[2019-10-17 22:10] LABS: ALT 13 U/L (4-34); AST 18 U/L (14-36); African American GFR (CKD) >90 (>60 ml/min/1.73 sqM); Albumin 3.9 g/dL (3.5-5.0); Alkaline Phosphatase 108 U/L (38-126); Amylase 57 U/L (30-110); Anion Gap 12 mmol/L; Blood Urea Nitrogen 18 mg/dL (7-17); Calcium 9.7 mg/dL (8.4-10.2); Carbon Dioxide 21 mmol/L (22-30); Chloride 106 mmol/L (98-107); Glucose 118 mg/dL (74-99); Non-African American GFR(CKD) 89 (>60 ml/min/1.73 sqM); Potassium 4.4 mmol/L (3.5-5.1); Sodium 139 mmol/L (137-145); Total Bilirubin 0.7 mg/dL (0.2-1.3); Total Protein 6.5 g/dL (6.3-8.2)
--- NOTE | 2019-10-17 22:22 | ED ---
General Adult HPI - General Chief complaint: Chest Pain Stated complaint: Chest pain Time Seen by Provider: 10/17/19 21:08 Source: patient Mode of arrival: wheelchair Limitations: no limitations - History of Present Illness Initial comments: This patient is 78-year-old woman who presents to be evaluated for pain to the right side of her trunk. She indicates the area of the costal margin, just above and below in the midaxillary line and a bit anterior to that. The patient states that is been going on for nearly a week. She had been seen for this, and then states that she followed with her physician who arranged an ultrasound of the gallbladder area which she was told was unremarkable. The patient has not noted fever or chills. No cough or dyspnea. -: days(s) Location: chest, abdomen Radiation: non-radiation Quality: aching Consistency: constant Improves with: none Worsens with: none - Related Data Home Medications Medication Instructions Recorded Confirmed Aspirin [Adult Low Dose Aspirin EC] 81 mg PO DAILY 12/27/16 12/27/16 Latanoprost [Xalatan 0.005%] 1 drop RIGHT EYE BID 12/27/16 12/27/16 Loteprednol Etabonate [Lotemax] 1 drop LEFT EYE HS 12/27/16 12/27/16 Montelukast Sodium [Singulair] 10 mg PO DAILY 12/27/16 12/27/16 Multivitamins, Thera [Multivitamin 1 tab PO DAILY 12/27/16 12/27/16 (formulary)] Naproxen Sodium [Aleve] 220 mg PO DAILY PRN 12/27/16 12/27/16 Propylene Glycol/Peg 400/Pf 1 drop LEFT EYE DAILY PRN 12/27/16 12/27/16 [Systane 0.3-0.4% Eye Drops] Refresh Pm Eye Ointment 1 applic RIGHT EYE BID 12/27/16 12/27/16 Travoprost [Travatan Z 0.004%] 1 drop RIGHT EYE HS 12/27/16 12/27/16 amLODIPine/ATORVASTATIN [Caduet 10 1 tab PO DAILY 12/27/16 12/27/16 mg-20 mg Tablet] Previous Rx's Medication Instructions Recorded Ciprofloxacin HCl [Cipro] 500 mg PO Q12HR #14 tablet 10/18/19 Allergies Allergy/AdvReac Type Severity Reaction Status Date / Time No Known Allergies Allergy Verified 10/17/19 21:08 Review of Systems ROS Statement: Those systems with pertinent positive or pertinent negative responses have been documented in the HPI. ROS Other: All systems not noted in ROS Statement are negative. Constitutional: Denies: fever, chills Respiratory: Denies: cough, dyspnea Cardiovascular: Reports: as per HPI, chest pain. Denies: palpitations, orthopnea, edema Gastrointestinal: Reports: abdominal pain, nausea. 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, LEFT EYE CATARACT REMOVED, NO SITE IN RIGHT EYE History of Any Multi-Drug Resistant Organisms: None Reported Past Surgical History: Tonsillectomy, Tubal Ligation Additional Past Surgical History / Comment(s): eye surgery Past Anesthesia/Blood Transfusion Reactions: No Reported Reaction Past Psychological History: No Psychological Hx Reported Smoking Status: Former smoker Past Alcohol Use History: None Reported Past Drug Use History: None Reported - Past Family History Father Additional Family Medical History / Comment(s): BONE AND LIVER CANCER Mother Additional Family Medical History / Comment(s): MOTHER AT 25 YEARS OLD, UNKNOWN General Exam Limitations: no limitations General appearance: alert, in no apparent distress Head exam: Present: atraumatic, normocephalic Eye exam: Present: normal appearance. Absent: scleral icterus, conjunctival injection ENT exam: Present: normal oropharynx Neck exam: Present: normal inspection Respiratory exam: Present: normal lung sounds bilaterally. Absent: respiratory distress, wheezes, rales, rhonchi, stridor Cardiovascular Exam: Present: regular rate, normal rhythm, normal heart sounds. Absent: systolic murmur, diastolic murmur, rubs, gallop GI/Abdominal exam: Present: soft, normal bowel sounds. Absent: distended, tenderness, guarding, rebound, rigid, mass Extremities exam: Present: normal inspection, normal capillary refill. Absent: pedal edema, calf tenderness Back exam: Present: normal inspection. Absent: CVA tenderness (R), CVA tenderness (L) Neurological exam: Present: alert Skin exam: Present: warm, dry, intact, normal color. Absent: rash Course Vital Signs 10/17/19 21:03 Temperature 97.8 F Pulse Rate 95 Respiratory 20 Rate Blood Pressure 137/74 O2 Sat by Pulse 97 Oximetry EKG Findings - EKG Results: EKG: interpreted by MUSA ECHEVERRIA, sinus rhythm (Rate 91 bpm), normal axis, normal Q RS, normal ST/T Medical Decision Making - Medical Decision Making I reviewed the results with the patient who states that her pain has basically r esolved. She does request to go home, when I had stated that I would like to admit her. She does state she will return if the pain recurs or if any new symptoms develop. She will have close follow-up with , and will arrange to have follow-up regarding the suspected ovarian cysts. - Lab Data Result diagrams: 10/17/19 21:18 10/17/19 21:18 Lab Results 10/17/19 10/17/19 10/17/19 Range/Units 21:18 21:18 21:18 WBC 11.8 H (3.8-10.6) k/uL RBC 4.58 (3.80-5.40) m/uL Hgb 13.8 (11.4-16.0) gm/dL Hct 42.9 (34.0-46.0) % MCV 93.7 (80.0-100.0) fL MCH 30.1 (25.0-35.0) pg MCHC 32.1 (31.0-37.0) g/dL RDW 14.5 (11.5-15.5) % Plt Count 288 (150-450) k/uL Neutrophils % 85 % Lymphocytes % 7 % Monocytes % 5 % Eosinophils % 1 % Basophils % 1 % Neutrophils # 10.0 H (1.3-7.7) k/uL Lymphocytes # 0.9 L (1.0-4.8) k/uL Monocytes # 0.5 (0-1.0) k/uL Eosinophils # 0.1 (0-0.7) k/uL Basophils # 0.1 (0-0.2) k/uL Sodium 139 (137-145) mmol/L Potassium 4.4 (3.5-5.1) mmol/L Chloride 106 (98-107) mmol/L Carbon Dioxide 21 L (22-30) mmol/L Anion Gap 12 mmol/L BUN 18 H (7-17) mg/dL Creatinine 0.58 (0.52-1.04) mg/dL Est GFR (CKD-EPI)AfAm >90 (>60 ml/min/1.73 sqM) Est GFR (CKD-EPI)NonAf 89 (>60 ml/min/1.73 sqM) Glucose 118 H (74-99) mg/dL Plasma Lactic Acid Peterson (0.7-2.0) mmol/L Calcium 9.7 (8.4-10.2) mg/dL Total Bilirubin 0.7 (0.2-1.3) mg/dL AST 18 (14-36) U/L ALT 13 (4-34) U/L Alkaline Phosphatase 108 (38-126) U/L Troponin I <0.012 (0.000-0.034) ng/mL Total Protein 6.5 (6.3-8.2) g/dL Albumin 3.9 (3.5-5.0) g/dL Amylase 57 (30-110) U/L Lipase 147 (23-300) U/L Urine Color Urine Appearance (Clear) Urine pH (5.0-8.0) Ur Specific [place] (1.001-1.035) Urine Protein (Negative) Urine Glucose (UA) (Negative) Urine Ketones (Negative) Urine Blood (Negative) Urine Nitrite (Negative) Urine Bilirubin (Negative) Urine Urobilinogen (<2.0) mg/dL Ur Leukocyte Esterase (Negative) Urine RBC (0-5) /hpf Urine WBC (0-5) /hpf Urine WBC Clumps (None) /hpf Ur Squamous Epith Cells (0-4) /hpf Urine Bacteria (None) /hpf Urine Mucus (None) /hpf 10/17/19 10/17/19 Range/Units 22:08 23:07 WBC (3.8-10.6) k/uL RBC (3.80-5.40) m/uL Hgb (11.4-16.0) gm/dL Hct (34.0-46.0) % MCV (80.0-100.0) fL MCH (25.0-35.0) pg MCHC (31.0-37.0) g/dL RDW (11.5-15.5) % Plt Count (150-450) k/uL Neutrophils % % Lymphocytes % % Monocytes % % Eosinophils % % Basophils % % Neutrophils # (1.3-7.7) k/uL Lymphocytes # (1.0-4.8) k/uL Monocytes # (0-1.0) k/uL Eosinophils # (0-0.7) k/uL Basophils # (0-0.2) k/uL Sodium (137-145) mmol/L Potassium (3.5-5.1) mmol/L Chloride (98-107) mmol/L Carbon Dioxide (22-30) mmol/L Anion Gap mmol/L BUN (7-17) mg/dL Creatinine (0.52-1.04) mg/dL Est GFR (CKD-EPI)AfAm (>60 ml/min/1.73 sqM) Est GFR (CKD-EPI)NonAf (>60 ml/min/1.73 sqM) Glucose (74-99) mg/dL Plasma Lactic Acid Peterson 1.4 (0.7-2.0) mmol/L Calcium (8.4-10.2) mg/dL Total Bilirubin (0.2-1.3) mg/dL AST (14-36) U/L ALT (4-34) U/L Alkaline Phosphatase (38-126) U/L Troponin I (0.000-0.034) ng/mL Total Protein (6.3-8.2) g/dL Albumin (3.5-5.0) g/dL Amylase (30-110) U/L Lipase (23-300) U/L Urine Color Yellow Urine Appearance Cloudy H (Clear) Urine pH 8.0 (5.0-8.0) Ur Specific [place] 1.022 (1.001-1.035) Urine Protein Trace H (Negative) Urine Glucose (UA) Negative (Negative) Urine Ketones 1+ H (Negative) Urine Blood Trace H (Negative) Urine Nitrite Positive H (Negative) Urine Bilirubin Negative (Negative) Urine Urobilinogen <2.0 (<2.0) mg/dL Ur Leukocyte Esterase Large H (Negative) Urine RBC 9 H (0-5) /hpf Urine WBC >182 H (0-5) /hpf Urine WBC Clumps Rare H (None) /hpf Ur Squamous Epith Cells 2 (0-4) /hpf Urine Bacteria Rare H (None) /hpf Urine Mucus Rare H (None) /hpf Disposition Clinical Impression: Urinary tract infection, Ovarian cyst Disposition: HOME SELF-CARE Condition: Good Instructions (If sedation given, give patient instructions): Urinary Tract Infection in Women (ED) Prescriptions: Ciprofloxacin HCl [Cipro] 500 mg PO Q12HR #14 tablet Is patient prescribed a controlled substance at d/c from ED?: No Referrals: Scott Camargo MD [Primary Care Provider] - 1-2 days Dane Vega MD [STAFF PHYSICIAN] - 1-2 days
--- NOTE | 2019-10-17 23:28 | CT ---
EXAMINATION TYPE: CT abdomen pelvis w con DATE OF EXAM: 10/17/2019 COMPARISON: None HISTORY: right side abd pain CT DLP: 1290 mGycm Automated exposure control for dose reduction was used. CONTRAST: Performed with IV Contrast, patient injected with 100 mL of Isovue 300. Multiple axial sections were obtained from the diaphragm to the floor the pelvis with intravenous con trast Isovue 100 mL. There is mild interstitial density at the lung bases consistent with mild fibrosis. There is no pleur al effusion. There is no pericardial effusion. Liver spleen pancreas stomach gallbladder appear normal. Bile ducts are not dilated. There is no adre nal mass. Kidneys show satisfactory contrast opacification. There is no hydronephrosis. There is 1 cm calculus lower pole left kidney. There is cortical thinning in the left kidney compared to the right . There is 5 mm calculus medial right kidney. There is 3 mm calculus lateral right kidney. There is 7 mm calculus lower pole left kidney. Ureters are not dilated. There is no retroperitoneal adenopathy. Bladder distends smoothly. There are 3-D large cyst in the pelvis on the left side. The largest measu res 8 cm. The other cysts measure 5.5 cm. The wall appears thin. There is no inguinal hernia. There is no free fluid in the pelvis. There is no mesenteric edema. Ther e is no sign of a bowel obstruction. There are some spondylotic changes in the lumbar spine. There is disc space narrowing at L3-4 L4-5. There is no compression fracture. Appendix is not seen. There is no sign of a thickened appendix. IMPRESSION: There are large pelvic thin-walled cysts on the left side that are probably ovarian cysts. No free fl uid. No evidence of renal obstruction. Multiple renal calculi without obstruction.
[2019-10-17 23:38] LABS: Appearance,Urine Cloudy (Clear); Bacteria,Urine Rare /hpf; Bilirubin,Urine Negative (Negative); Blood,Urine Trace (Negative); Color,Urine Yellow; Glucose,Urine (UA) Negative (Negative); Ketones,Urine 1+ (Negative); Leukocyte Esterase,Urine Large (Negative); Mucus,Urine Rare /hpf; Nitrite,Urine Positive (Negative); Protein,Urine Trace (Negative); RBC,Urine 9 /hpf (0-5); Specific Gravity,Urine 1.022 (1.001-1.035); Squamous Epithelial Cell,Urine 2 /hpf (0-4); Urobilinogen,Urine <2.0 mg/dL (<2.0); WBC,Urine >182 /hpf (0-5)
[2019-10-18] MEDS ORDERED: MORPHINE SULFATE 4 MG/ML SYRINGE IV STA (02:23)
[2019-10-18 02:49] VITALS: RESP 18
[2019-10-18 03:17] VITALS: BP 126/57; PULSE 85; TEMP 97.8
== END 2019-10-18 03:19 | disposition home or self-care (01) ==
LOC: EC 21:02
DX: N39.0 Urinary tract infection, site not specified (principal); N83.209 Unspecified ovarian cyst, unspecified side; R07.9 Chest pain, unspecified; I10 Essential (primary) hypertension; Z98.51 Tubal ligation status; Z87.891 Personal history of nicotine dependence; Z79.82 Long term (current) use of aspirin; Z79.899 Other long term (current) drug therapy
CPT/HCPCS: 36415; 80053; 82150; 83605; 83690; 84484; 85025; 81001; 87086; 74177; 99285; 96365; 96375; J2270; J0696; Q9967; 87077; 87186

== ENCOUNTER 2019-10-21 09:54 | Inpatient (IN) | payer MEDICARE, BC ==
[2019-10-21] MEDS ORDERED: SODIUM CHLORIDE 0.9% 500 ML 500 ML IV STA (11:57)
--- NOTE | 2019-10-21 12:05 | ED ---
General Adult HPI - General Chief complaint: GI Bleed Stated complaint: Black stool Time Seen by Provider: 10/21/19 11:00 Source: patient, RN notes reviewed, old records reviewed Mode of arrival: wheelchair Limitations: no limitations - History of Present Illness Initial comments: This is a 78-year-old female presents emergency department stating that she's been having abdominal pain for about 5 days. Patient was seen in emergency department Saturday had a CAT scan at that time and was told she had a urinary tract infection at which point in time she started taking antibodies. Patient states since that she's been having multiple episodes of black stool and as of last night she started having bright red blood per rectum. Patient states again this morning he continued. Patient states she still has some abdominal pain. Patient states it's rather diffuse and now in any particular spot. Patient denies any fever chills per patient denies any vomiting. Patient denies any chest pain difficulty breathing shortness of breath. Patient denies any lightheadedness or dizziness. Patient states she's never had a colonoscopy in her life. - Related Data Home Medications Medication Instructions Recorded Confirmed Aspirin [Adult Low Dose Aspirin EC] 81 mg PO DAILY 12/27/16 12/27/16 Latanoprost [Xalatan 0.005%] 1 drop RIGHT EYE BID 12/27/16 12/27/16 Loteprednol Etabonate [Lotemax] 1 drop LEFT EYE HS 12/27/16 12/27/16 Montelukast Sodium [Singulair] 10 mg PO DAILY 12/27/16 12/27/16 Multivitamins, Thera [Multivitamin 1 tab PO DAILY 12/27/16 12/27/16 (formulary)] Naproxen Sodium [Aleve] 220 mg PO DAILY PRN 12/27/16 12/27/16 Propylene Glycol/Peg 400/Pf 1 drop LEFT EYE DAILY PRN 12/27/16 12/27/16 [Systane 0.3-0.4% Eye Drops] Refresh Pm Eye Ointment 1 applic RIGHT EYE BID 12/27/16 12/27/16 Travoprost [Travatan Z 0.004%] 1 drop RIGHT EYE HS 12/27/16 12/27/16 amLODIPine/ATORVASTATIN [Caduet 10 1 tab PO DAILY 12/27/16 12/27/16 mg-20 mg Tablet] Previous Rx's Medication Instructions Recorded Ciprofloxacin HCl [Cipro] 500 mg PO Q12HR #14 tablet 10/18/19 Allergies Allergy/AdvReac Type Severity Reaction Status Date / Time No Known Allergies Allergy Verified 10/21/19 10:14 Review of Systems ROS Statement: Those systems with pertinent positive or pertinent negative responses have been documented in the HPI. ROS Other: All systems not noted in ROS Statement are negative. 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, LEFT EYE CATARACT REMOVED, NO SITE IN RIGHT EYE History of Any Multi-Drug Resistant Organisms: None Reported Past Surgical History: Tonsillectomy, Tubal Ligation Additional Past Surgical History / Comment(s): eye surgery Past Anesthesia/Blood Transfusion Reactions: No Reported Reaction Past Psychological History: No Psychological Hx Reported Smoking Status: Former smoker Past Alcohol Use History: None Reported Past Drug Use History: None Reported - Past Family History Father Additional Family Medical History / Comment(s): BONE AND LIVER CANCER Mother Additional Family Medical History / Comment(s): MOTHER AT 25 YEARS OLD, UNKNOWN General Exam - General Exam Comments Initial Comments: GENERAL: Patient is well-developed and well-nourished. Patient is nontoxic and well- hydrated and is in mild distress. ENT: Neck is soft and supple. No significant lymphadenopathy is noted. Oropharynx is clear. Moist mucous membranes. Neck has full range of motion without eliciting any pain. EYES: The sclera were anicteric and conjunctiva were pink and moist. Extraocular movements were intact and pupils were equal round and reactive to light. Eyelids were unremarkable. PULMONARY: Unlabored respirations. Good breath sounds bilaterally. No audible rales rhonchi or wheezing was noted. CARDIOVASCULAR: There is a regular rate and rhythm without any murmurs gallops or rubs. ABDOMEN: Soft and nontender with normal bowel sounds. SKIN: Skin is clear with no lesions or rashes and otherwise unremarkable. NEUROLOGIC: Patient is alert and oriented x3. Cranial nerves II through XII are grossly intact. Motor and sensory are also intact. Normal speech, volume and content. Symmetrical smile. MUSCULOSKELETAL: Normal extremities with adequate strength and full range of motion. LYMPHATICS: No significant lymphadenopathy is noted PSYCHIATRIC: Normal psychiatric evaluation. Limitations: no limitations Course Vital Signs 10/21/19 10/21/19 10:11 14:00 Temperature 99.9 F H Pulse Rate 103 H 86 Respiratory 18 16 Rate Blood Pressure 116/67 130/70 O2 Sat by Pulse 98 Oximetry Medical Decision Making - Medical Decision Making EKG shows normal sinus rhythm at 96 bpm KS interval is 144 QRS is 84 QT interval 350 QTC is 452. EKG shows no ST segment elevation or depression. I review the old CAT scan did show probable large ovarian septated cyst. I spoke with Dr. Richard he agreed to admit the patient admitted the patient wrote admitting orders. - Lab Data Result diagrams: 10/21/19 12:45 10/21/19 12:45 Lab Results 10/21/19 10/21/19 10/21/19 Range/Units 12:45 12:45 12:45 WBC 9.3 (3.8-10.6) k/uL RBC 3.93 (3.80-5.40) m/uL Hgb 11.8 (11.4-16.0) gm/dL Hct 36.8 (34.0-46.0) % MCV 93.6 (80.0-100.0) fL MCH 29.9 (25.0-35.0) pg MCHC 32.0 (31.0-37.0) g/dL RDW 14.4 (11.5-15.5) % Plt Count 257 (150-450) k/uL Neutrophils % 84 % Lymphocytes % 7 % Monocytes % 7 % Eosinophils % 1 % Basophils % 1 % Neutrophils # 7.8 H (1.3-7.7) k/uL Lymphocytes # 0.6 L (1.0-4.8) k/uL Monocytes # 0.7 (0-1.0) k/uL Eosinophils # 0.1 (0-0.7) k/uL Basophils # 0.1 (0-0.2) k/uL PT 10.7 (9.0-12.0) sec INR 1.0 (<1.2) APTT 25.0 (22.0-30.0) sec Sodium 141 (137-145) mmol/L Potassium 4.0 (3.5-5.1) mmol/L Chloride 109 H (98-107) mmol/L Carbon Dioxide 21 L (22-30) mmol/L Anion Gap 11 mmol/L BUN 53 H (7-17) mg/dL Creatinine 0.81 (0.52-1.04) mg/dL Est GFR (CKD-EPI)AfAm 81 (>60 ml/min/1.73 sqM) Est GFR (CKD-EPI)NonAf 70 (>60 ml/min/1.73 sqM) Glucose 94 (74-99) mg/dL Plasma Lactic Acid Peterson (0.7-2.0) mmol/L Calcium 9.6 (8.4-10.2) mg/dL Magnesium 2.0 (1.6-2.3) mg/dL Total Bilirubin 0.7 (0.2-1.3) mg/dL AST 17 (14-36) U/L ALT 11 (4-34) U/L Alkaline Phosphatase 91 (38-126) U/L Troponin I (0.000-0.034) ng/mL Total Protein 6.1 L (6.3-8.2) g/dL Albumin 3.5 (3.5-5.0) g/dL Blood Type Blood Type Confirm Blood Type Recheck Bld Type Recheck Status Antibody Screen Spec Expiration Date 10/21/19 10/21/19 10/21/19 Range/Units 12:45 12:45 12:45 WBC (3.8-10.6) k/uL RBC (3.80-5.40) m/uL Hgb (11.4-16.0) gm/dL Hct (34.0-46.0) % MCV (80.0-100.0) fL MCH (25.0-35.0) pg MCHC (31.0-37.0) g/dL RDW (11.5-15.5) % Plt Count (150-450) k/uL Neutrophils % % Lymphocytes % % Monocytes % % Eosinophils % % Basophils % % Neutrophils # (1.3-7.7) k/uL Lymphocytes # (1.0-4.8) k/uL Monocytes # (0-1.0) k/uL Eosinophils # (0-0.7) k/uL Basophils # (0-0.2) k/uL PT (9.0-12.0) sec INR (<1.2) APTT (22.0-30.0) sec Sodium (137-145) mmol/L Potassium (3.5-5.1) mmol/L Chloride (98-107) mmol/L Carbon Dioxide (22-30) mmol/L Anion Gap mmol/L BUN (7-17) mg/dL Creatinine (0.52-1.04) mg/dL Est GFR (CKD-EPI)AfAm (>60 ml/min/1.73 sqM) Est GFR (CKD-EPI)NonAf (>60 ml/min/1.73 sqM) Glucose (74-99) mg/dL Plasma Lactic Acid Peterson 1.3 (0.7-2.0) mmol/L Calcium (8.4-10.2) mg/dL Magnesium (1.6-2.3) mg/dL Total Bilirubin (0.2-1.3) mg/dL AST (14-36) U/L ALT (4-34) U/L Alkaline Phosphatase (38-126) U/L Troponin I <0.012 (0.000-0.034) ng/mL Total Protein (6.3-8.2) g/dL Albumin (3.5-5.0) g/dL Blood Type A Negative Blood Type Confirm Blood Type Recheck No Previous Record Bld Type Recheck Status CABO Indicated Antibody Screen NEGATIVE Spec Expiration Date 10/24/2019 - 234410/21/19 Range/Units 13:22 WBC (3.8-10.6) k/uL RBC (3.80-5.40) m/uL Hgb (11.4-16.0) gm/dL Hct (34.0-46.0) % MCV (80.0-100.0) fL MCH (25.0-35.0) pg MCHC (31.0-37.0) g/dL RDW (11.5-15.5) % Plt Count (150-450) k/uL Neutrophils % % Lymphocytes % % Monocytes % % Eosinophils % % Basophils % % Neutrophils # (1.3-7.7) k/uL Lymphocytes # (1.0-4.8) k/uL Monocytes # (0-1.0) k/uL Eosinophils # (0-0.7) k/uL Basophils # (0-0.2) k/uL PT (9.0-12.0) sec INR (<1.2) APTT (22.0-30.0) sec Sodium (137-145) mmol/L Potassium (3.5-5.1) mmol/L Chloride (98-107) mmol/L Carbon Dioxide (22-30) mmol/L Anion Gap mmol/L BUN (7-17) mg/dL Creatinine (0.52-1.04) mg/dL Est GFR (CKD-EPI)AfAm (>60 ml/min/1.73 sqM) Est GFR (CKD-EPI)NonAf (>60 ml/min/1.73 sqM) Glucose (74-99) mg/dL Plasma Lactic Acid Peterson (0.7-2.0) mmol/L Calcium (8.4-10.2) mg/dL Magnesium (1.6-2.3) mg/dL Total Bilirubin (0.2-1.3) mg/dL AST (14-36) U/L ALT (4-34) U/L Alkaline Phosphatase (38-126) U/L Troponin I (0.000-0.034) ng/mL Total Protein (6.3-8.2) g/dL Albumin (3.5-5.0) g/dL Blood Type Blood Type Confirm A Negative Blood Type Recheck Bld Type Recheck Status Antibody Screen Spec Expiration Date Disposition Clinical Impression: GI bleed, Ovarian cyst Disposition: ADMITTED IP TO THIS [facility] Referrals: Scott Camargo MD [Primary Care Provider] - 1-2 days Time of Disposition: 14:07
[2019-10-21 13:08] LABS: Albumin 3.5 g/dL (3.5-5.0); Calcium 9.6 mg/dL (8.4-10.2); Total Bilirubin 0.7 mg/dL (0.2-1.3); Total Protein 6.1 g/dL (6.3-8.2)
[2019-10-21 13:18] LABS: Prothrombin Time 10.7 sec (9.0-12.0)
[2019-10-21 13:57] LABS: Basophils # (A) 0.1 k/uL (0-0.2); Basophils % (A) 1 %; Eosinophils # (A) 0.1 k/uL (0-0.7); Eosinophils % (A) 1 %; HCT 36.8 % (34.0-46.0); HGB 11.8 gm/dL (11.4-16.0); Lymphocytes # (A) 0.6 k/uL (1.0-4.8); Lymphocytes % (A) 7 %; MCH 29.9 pg (25.0-35.0); MCV 93.6 fL (80.0-100.0); Mean Platelet Volume 9.1; Monocytes # (A) 0.7 k/uL (0-1.0); Monocytes % (A) 7 %; Neutrophils # (A) 7.8 k/uL (1.3-7.7); Neutrophils % (A) 84 %; Platelet Count 257 k/uL (150-450); RBC 3.93 m/uL (3.80-5.40); RDW 14.4 % (11.5-15.5); WBC 9.3 k/uL (3.8-10.6)
[2019-10-21] MEDS ORDERED: SODIUM CHLORIDE 0.9% 1,000 ML IV ONE (14:07)
[2019-10-21] MEDS ORDERED: ACETAMINOPHEN TAB 325 MG TAB PO PRN (15:23)
[2019-10-21] MEDS ORDERED: ONDANSETRON 4 MG/2 ML VIAL IVP PRN (15:23)
--- NOTE | 2019-10-21 15:23 | P.HPIM ---
History of Present Illness H&P Date: 10/21/19 Chief Complaint: Dark stools This is a 78-year-old female patient of Dr. Camargo patient presented to the ER with complaints of abdominal pain and concerns for GI bleed. Patient reports that she's had abdominal pain over the past week which prompted her to come to the ER on Saturday she will underwent a CT in the found a large ovarian cysts diagnosed with UTI. Patient was released from the ER on antibiotics. Patient went home and then 2 days later started having dark stools. Patient does report that she broke her arm a few months ago and has been taking Aleve regularly along with ibuprofen p.m. and her baby aspirin. Patient states she's never had a colonoscopy due to her choice. Past medical history does include hyperlipidemia and hypertension. Patient denies any alcohol use. Urine culture from 10/17/2019 showing E. coli. Will start patient on Rocephin for urinary tract infection. GI service is consulted for GI bleed. [facility] service is consulted for large ovarian cyst. NSAIDs currently on hold. At this time patient denies chest pain or shortness of breath. Patient denies nausea vomiting or diarrhea. 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, LEFT EYE CATARACT REMOVED, NO SITE IN RIGHT EYE History of Any Multi-Drug Resistant Organisms: None Reported Past Surgical History: Tonsillectomy, Tubal Ligation Additional Past Surgical History / Comment(s): eye surgery Past Anesthesia/Blood Transfusion Reactions: No Reported Reaction Past Psychological History: No Psychological Hx Reported Smoking Status: Former smoker Past Alcohol Use History: None Reported Past Drug Use History: None Reported - Past Family History Father Additional Family Medical History / Comment(s): BONE AND LIVER CANCER Mother Additional Family Medical History / Comment(s): MOTHER AT 25 YEARS OLD, UNKNOWN Medications and Allergies Home Medications Medication Instructions Recorded Confirmed Type Aspirin [Adult Low Dose Aspirin EC] 81 mg PO DAILY 12/27/16 12/27/16 History Latanoprost [Xalatan 0.005%] 1 drop RIGHT EYE BID 12/27/16 12/27/16 History Loteprednol Etabonate [Lotemax] 1 drop LEFT EYE HS 12/27/16 12/27/16 History Montelukast Sodium [Singulair] 10 mg PO DAILY 12/27/16 12/27/16 History Multivitamins, Thera [Multivitamin 1 tab PO DAILY 12/27/16 12/27/16 History (formulary)] Naproxen Sodium [Aleve] 220 mg PO DAILY PRN 12/27/16 12/27/16 History Propylene Glycol/Peg 400/Pf 1 drop LEFT EYE DAILY PRN 12/27/16 12/27/16 History [Systane 0.3-0.4% Eye Drops] Refresh Pm Eye Ointment 1 applic RIGHT EYE BID 12/27/16 12/27/16 History Travoprost [Travatan Z 0.004%] 1 drop RIGHT EYE HS 12/27/16 12/27/16 History amLODIPine/ATORVASTATIN [Caduet 10 1 tab PO DAILY 12/27/16 12/27/16 History mg-20 mg Tablet] Ciprofloxacin HCl [Cipro] 500 mg PO Q12HR #14 tablet 10/18/19 Rx Allergies Allergy/AdvReac Type Severity Reaction Status Date / Time No Known Allergies Allergy Verified 10/21/19 15:12 Physical Exam Vitals: Vital Signs Temp Pulse Resp BP Pulse Ox 10/21/19 14:54 72 18 127/72 10/21/19 14:00 86 16 130/70 10/21/19 10:11 99.9 F H 103 H 18 116/67 98 Intake and Output 10/21/19 10/21/19 10/21/19 06:59 14:59 22:59 Other: Weight 72.575 kg Head normocephalic Neck supple Lungs clear to auscultation bilaterally no wheezing or crackles Heart regular rate and rhythm S1-S2, no rub or gallop Abdomen is soft nontender nondistended positive bowel sounds no hepatosplenomegaly Extremities no edema Neuro alert and orientated to 3 Results CBC & Chem 7: 10/21/19 12:45 10/21/19 12:45 Labs: Abnormal Lab Results - Last 24 Hours (Table) 10/21/19 10/21/19 Range/Units 12:45 12:45 Neutrophils # 7.8 H (1.3-7.7) k/uL Lymphocytes # 0.6 L (1.0-4.8) k/uL Chloride 109 H (98-107) mmol/L Carbon Dioxide 21 L (22-30) mmol/L BUN 53 H (7-17) mg/dL Total Protein 6.1 L (6.3-8.2) g/dL Assessment and Plan Assessment: 1. Abdominal pain with GI bleed. GI services have been consulted. Hemoglobin remained stable. Patient does admit to prolonged NSAID use. NSAIDs currently on hold no previous history of colonoscopy 2. Recent urinary tract infection. Patient was discharged on Cipro. Urine culture from 10/17/2019 currently E. coli. Will start patient on Rocephin while inpatient. 3. Large ovarian cyst. CT completed on 10/17/2019 showing large pelvic thin- walled cyst on the left side that are probably ovarian cyst no free fluid no evidence of renal structure multiple renal calculi without obstruction. [facility] services have been consulted 4. History of left arm fracture. Patient reports this was a few months ago but has been taking NSAIDs including Aleve and ibuprofen for this issue 5. History of hyperlipidemia. Patient maintained on statin 6. History of essential hypertension. Home meds resumed 7. History of left eye cataract removal 8. 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 I performed an examination of the patient and discussed their management with the Nurse Practitioner. I have reviewed the Nurse Practitioner's notes and agree with the documented findings and plan of care)
[2019-10-21] MEDS ORDERED: INFLUENZA VACCINE (6 MOS+) 60 MCG/0.5 ML SYRINGE IM ONE (15:32)
[2019-10-21 19:59] LABS: Basophils % (A) 0 %; Eosinophils % (A) 1 %; HCT 30.5 % (34.0-46.0); Hypochromasia Slight; Lymphocytes # (A) 0.5 k/uL (1.0-4.8); Lymphocytes % (A) 5 %; MCH 29.3 pg (25.0-35.0); MCHC 30.4 g/dL (31.0-37.0); MCV 96.5 fL (80.0-100.0); Mean Platelet Volume 7.7; Monocytes # (A) 0.4 k/uL (0-1.0); Monocytes % (A) 5 %; Neutrophils # (A) 7.3 k/uL (1.3-7.7); Neutrophils % (A) 88 %; Platelet Count 255 k/uL (150-450); RBC 3.16 m/uL (3.80-5.40); RDW 14.2 % (11.5-15.5); WBC 8.3 k/uL (3.8-10.6)
[2019-10-21 20:04] LABS: HGB 9.3 gm/dL (11.4-16.0)
[2019-10-21] MEDS: LATANOPROST 0.005% OPHTH DROPS 2.5 ML BTL RIGHT EYE SCH (21:43)
[2019-10-21] MEDS: ARTIFICIAL TEARS-HYPROMELLOSE DROPS 15 ML BTL BOTH EYES SCH (21:43)
[2019-10-21 22:05] VITALS: RESP 16
[2019-10-22 01:12] LABS: Basophils % (A) 0 %; Eosinophils # (A) 0.1 k/uL (0-0.7); Eosinophils % (A) 2 %; HCT 28.5 % (34.0-46.0); HGB 9.1 gm/dL (11.4-16.0); Lymphocytes # (A) 0.6 k/uL (1.0-4.8); Lymphocytes % (A) 8 %; MCH 30.1 pg (25.0-35.0); MCHC 31.8 g/dL (31.0-37.0); MCV 94.6 fL (80.0-100.0); Mean Platelet Volume 7.4; Monocytes # (A) 0.4 k/uL (0-1.0); Monocytes % (A) 6 %; Neutrophils # (A) 6.1 k/uL (1.3-7.7); Neutrophils % (A) 83 %; Platelet Count 230 k/uL (150-450); RBC 3.01 m/uL (3.80-5.40); RDW 14.5 % (11.5-15.5); WBC 7.3 k/uL (3.8-10.6)
[2019-10-22] MEDS: PANTOPRAZOLE 40 MG/10 ML VIAL IVP SCH (08:03)
[2019-10-22] MEDS: ARTIFICIAL TEARS-HYPROMELLOSE DROPS 15 ML BTL BOTH EYES SCH ×2 (08:12→20:21)
--- NOTE | 2019-10-22 08:23 | P.OBCN ---
History of Present Illness Consult date: 10/22/19 Reason for consult: ovarian cyst Chief complaint: Black stools History of present illness: This is a 78-year-old 0 woman who was admitted through the emergency room with GI bleeding. She reports onset of black stools approximately 48 hours ago. She had previously been seen on 10/17/2019 for nausea, vomiting and upper abdominal pain. Computed tomography scan at that time showed nonspecific thin- walled pelvic cysts measuring 8 cm. She was treated for an E. coli UTI and discharged home. She re presents with the change in stools and is admitted. She currently denies any abdominal pain, nausea or vomiting. No vaginal bleeding or hematuria. She recalls no prior history of ovarian cysts and had a hysterectomy for unknown reasons and the remote past. She believes her ovaries were left in place but is uncertain. Review of Systems Constitutional: Denies chills, Denies fever Breasts: absent: masses Cardiovascular: Reports high blood pressure, Denies chest pain, Denies irregular heart beat, Denies shortness of breath Respiratory: Denies cough, Denies dyspnea Gastrointestinal: Reports change in bowel habits, Reports melena, Denies abdominal pain, Denies bloating, Denies BRBPR, Denies coffee ground emesis, Denies constipation, Denies diarrhea, Denies heartburn, Denies hematemesis, Denies nausea, Denies vomiting Genitourinary: Denies abnormal vaginal bleeding, Denies difficulty voiding, Denies dysuria, Denies flank pain, Denies genital sores, Denies hematuria, Denies pelvic pain, Denies urinary frequency, Denies vaginal discharge Menstruation: Reports post hysterectomy Musculoskeletal: Reports low back pain Musculoskeletal: left: hand swelling Integumentary: Denies rash Neurological: Denies headaches Hematologic/Lymphatic: Denies easy bleeding, Denies easy bruising 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, LEFT EYE CATARACT REMOVED, NO SITE IN RIGHT EYE History of Any Multi-Drug Resistant Organisms: None Reported Past Surgical History: Hysterectomy, Tonsillectomy, Tubal Ligation Additional Past Surgical History / Comment(s): eye surgery Past Anesthesia/Blood Transfusion Reactions: No Reported Reaction Smoking Status: Former smoker - Past Family History Father Family Medical History: Cancer Additional Family Medical History / Comment(s): BONE AND LIVER CANCER Mother Additional Family Medical History / Comment(s): MOTHER AT 25 YEARS OLD, UNKNOWN Medications and Allergies Home Medications Medication Instructions Recorded Confirmed Type Latanoprost [Xalatan 0.005%] 1 drop RIGHT EYE HS 12/27/16 10/21/19 History Montelukast Sodium [Singulair] 10 mg PO DAILY 12/27/16 10/21/19 History Multivitamins, Thera [Multivitamin 1 tab PO DAILY 12/27/16 10/21/19 History (formulary)] amLODIPine/ATORVASTATIN [Caduet 10 1 tab PO DAILY 12/27/16 10/21/19 History mg-20 mg Tablet] Systane Eye Ointment 1 applic BOTH EYES BID 10/21/19 10/21/19 History Allergies Allergy/AdvReac Type Severity Reaction Status Date / Time No Known Allergies Allergy Verified 10/21/19 15:12 Exam Vital Signs Temp Pulse Pulse Pulse Resp BP BP 10/22/19 05:39 97.2 F L 81 16 125/68 10/21/19 22:04 98 F 84 16 126/61 10/21/19 17:41 97.6 F 96 18 119/76 10/21/19 16:00 18 10/21/19 14:54 72 18 127/72 10/21/19 14:00 86 16 130/70 10/21/19 10:11 99.9 F H 103 H 18 116/67 Pulse Ox 10/22/19 05:39 95 10/21/19 22:04 95 10/21/19 17:41 97 10/21/19 16:00 10/21/19 14:54 10/21/19 14:00 10/21/19 10:11 98 Intake and Output 10/21/19 10/22/19 10/22/19 22:59 06:59 14:59 Intake Total 1200 Balance 1200 Intake: Intake, IV Titration 1200 Amount Sodium Chloride 0.9% 1, 1200 000 ml @ 100 mls/hr IV . Q10H ONE Rx#:[id number] Other: Voiding Method Toilet Toilet # Voids 1 3 Weight 72.575 kg This is a pleasant elderly female who is alert and oriented 3. HEENT exam is remarkable for seventh nerve palsy. No thyromegaly. Breathing is unlabored labored. The abdomen is soft, nontender with no rebound, no guarding and no flank pain. The extremities are free of any lesions or swelling with the exception of the left upper extremity with notable edema from elbow to rest. She has some ecchymoses from blood draws. Pelvic examination is deferred. Results Result Diagrams: 10/22/19 00:59 10/21/19 12:45 Abnormal Lab Results - Last 24 Hours (Table) 10/21/19 10/21/19 10/21/19 Range/Units 12:45 12:45 19:31 RBC 3.16 L (3.80-5.40) m/uL Hgb 9.3 L D (11.4-16.0) gm/dL Hct 30.5 L (34.0-46.0) % MCHC 30.4 L (31.0-37.0) g/dL Neutrophils # 7.8 H (1.3-7.7) k/uL Lymphocytes # 0.6 L 0.5 L (1.0-4.8) k/uL Chloride 109 H (98-107) mmol/L Carbon Dioxide 21 L (22-30) mmol/L BUN 53 H (7-17) mg/dL Total Protein 6.1 L (6.3-8.2) g/dL 10/22/19 Range/Units 00:59 RBC 3.01 L (3.80-5.40) m/uL Hgb 9.1 L (11.4-16.0) gm/dL Hct 28.5 L (34.0-46.0) % MCHC (31.0-37.0) g/dL Neutrophils # (1.3-7.7) k/uL Lymphocytes # 0.6 L (1.0-4.8) k/uL Chloride (98-107) mmol/L Carbon Dioxide (22-30) mmol/L BUN (7-17) mg/dL Total Protein (6.3-8.2) g/dL CT scan - pelvis: report reviewed, image reviewed Assessment and Plan (1) GI bleed Current Visit: Yes Status: Acute Code(s): K92.2 - GASTROINTESTINAL HEMORRHAGE, UNSPECIFIED SNOMED Code(s): 23573237 (2) Ovarian cyst Narrative/Plan: Nonspecific thin-walled pelvic cysts noted on computed tomography scan. Recommend pelvic ultrasound to better determine etiology. Does not appear to be any ascites or pelvic lymphadenopathy. CA 125 level recommended. I'll follow up these results as they become available. Patient is counseled regarding my recommendations and the plan and all questions were answered. Current Visit: Yes Status: Acute Code(s): N83.209 - UNSPECIFIED OVARIAN CYST, UNSPECIFIED SIDE SNOMED Code(s): 32731902 (3) Urinary tract infection Current Visit: No Status: Acute Code(s): N39.0 - URINARY TRACT INFECTION, SITE NOT SPECIFIED SNOMED Code(s): 97930364
[2019-10-22 09:56] LABS: ALT 11 U/L (4-34); AST 18 U/L (14-36); African American GFR (CKD) >90 (>60 ml/min/1.73 sqM); Albumin 3.1 g/dL (3.5-5.0); Alkaline Phosphatase 78 U/L (38-126); Anion Gap 10 mmol/L; Basophils % (A) 0 %; Blood Urea Nitrogen 37 mg/dL (7-17); Calcium 8.7 mg/dL (8.4-10.2); Carbon Dioxide 20 mmol/L (22-30); Chloride 113 mmol/L (98-107); Eosinophils # (A) 0.1 k/uL (0-0.7); Eosinophils % (A) 1 %; Glucose 90 mg/dL (74-99); HCT 32.4 % (34.0-46.0); HGB 10.2 gm/dL (11.4-16.0); Lymphocytes # (A) 0.5 k/uL (1.0-4.8); Lymphocytes % (A) 5 %; MCH 29.2 pg (25.0-35.0); MCHC 31.4 g/dL (31.0-37.0); Mean Platelet Volume 9.2; Monocytes # (A) 0.5 k/uL (0-1.0); Monocytes % (A) 5 %; Neutrophils # (A) 8.8 k/uL (1.3-7.7); Neutrophils % (A) 88 %; Non-African American GFR(CKD) 90 (>60 ml/min/1.73 sqM); Platelet Count 311 k/uL (150-450); Potassium 4.2 mmol/L (3.5-5.1); RBC 3.49 m/uL (3.80-5.40); RDW 14.6 % (11.5-15.5); Sodium 143 mmol/L (137-145); Total Bilirubin 0.7 mg/dL (0.2-1.3); Total Protein 5.6 g/dL (6.3-8.2)
[2019-10-22] MEDS: MONTELUKAST 10 MG TAB PO SCH (10:39)
[2019-10-22] MEDS: amLODIPine 10 MG TAB PO SCH (10:39)
[2019-10-22] MEDS: ATORVASTATIN 20 MG TAB PO SCH (10:39)
[2019-10-22] MEDS: MULTIVITAMINS, THERA 1 EACH TAB PO SCH ×2 (10:41→10:46)
[2019-10-22] MEDS ORDERED: BISACODYL 5 MG TABLET.DR PO STA (11:09)
--- NOTE | 2019-10-22 12:10 | P.PN ---
Subjective Progress Note Date: 10/22/19 This is a 78-year-old female patient of Dr. Camargo patient presented to the ER with complaints of abdominal pain and concerns for GI bleed. Patient reports that she's had abdominal pain over the past week which prompted her to come to the ER on Saturday she will underwent a CT in the found a large ovarian cysts diagnosed with UTI. Patient was released from the ER on antibiotics. Patient went home and then 2 days later started having dark stools. Patient does report that she broke her arm a few months ago and has been taking Aleve regularly along with ibuprofen p.m. and her baby aspirin. Patient states she's never had a colonoscopy due to her choice. Past medical history does include hyperlip idemia and hypertension. Patient denies any alcohol use. Urine culture from 10/17/2019 showing E. coli. Will start patient on Rocephin for urinary tract infection. GI service is consulted for GI bleed. [employer] service is consulted for large ovarian cyst. NSAIDs currently on hold. At this time patient denies chest pain or shortness of breath. Patient denies nausea vomiting or diarrhea. Patient denies any urinary burning or frequency. Patient seen on 10/22/2019. Patient seen resting comfortably in bed with her at the bedside. Patient patient states she is feeling well today with no acute complaints. Patient states she has had for all movements that have been black performed. Patient denies any chest pain or shortness of breath. Patient denies any urinary burning or frequency. Patient denies any nausea vomiting or diarrhea. Gynecology consultation regarding left ovarian cyst awaiting CA-125 levels. GI services following. Possible scopes. Objective - Vital Signs Vital signs: Vital Signs Temp 97.2 F L 10/22/19 05:39 Pulse 81 10/22/19 05:39 Resp 16 10/22/19 05:39 BP 125/68 10/22/19 05:39 Pulse Ox 95 10/22/19 05:39 Intake & Output 10/21/19 10/22/19 10/22/19 18:59 06:59 18:59 Intake Total 1200 Balance 1200 Weight 72.575 kg Intake: Intake, IV Titration 1200 Amount Sodium Chloride 0.9% 1, 1200 000 ml @ 100 mls/hr IV . Q10H ONE Rx#:[id number] Other: Voiding Method Toilet Toilet # Voids 3 - Exam Head normocephalic Neck supple Lungs clear to auscultation bilaterally no wheezing or crackles Heart regular rate and rhythm S1-S2, no rub or gallop Abdomen is soft nontender nondistended positive bowel sounds no hepatosplenomegaly Extremities no edema Neuro alert and orientated to 3 - Labs CBC & Chem 7: 10/22/19 08:34 10/22/19 08:34 Labs: Abnormal Lab Results - Last 24 Hours (Table) 10/21/19 10/21/19 10/21/19 Range/Units 12:45 12:45 19:31 RBC 3.16 L (3.80-5.40) m/uL Hgb 9.3 L D (11.4-16.0) gm/dL Hct 30.5 L (34.0-46.0) % MCHC 30.4 L (31.0-37.0) g/dL Neutrophils # 7.8 H (1.3-7.7) k/uL Lymphocytes # 0.6 L 0.5 L (1.0-4.8) k/uL Chloride 109 H (98-107) mmol/L Carbon Dioxide 21 L (22-30) mmol/L BUN 53 H (7-17) mg/dL Total Protein 6.1 L (6.3-8.2) g/dL Albumin (3.5-5.0) g/dL 10/22/19 10/22/19 10/22/19 Range/Units 00:59 08:34 08:34 RBC 3.01 L 3.49 L (3.80-5.40) m/uL Hgb 9.1 L 10.2 L (11.4-16.0) gm/dL Hct 28.5 L 32.4 L (34.0-46.0) % MCHC (31.0-37.0) g/dL Neutrophils # 8.8 H (1.3-7.7) k/uL Lymphocytes # 0.6 L 0.5 L (1.0-4.8) k/uL Chloride 113 H (98-107) mmol/L Carbon Dioxide 20 L (22-30) mmol/L BUN 37 H (7-17) mg/dL Total Protein 5.6 L (6.3-8.2) g/dL Albumin 3.1 L (3.5-5.0) g/dL Assessment and Plan Assessment: 1. Abdominal pain with GI bleed. GI services have been consulted. Hemoglobin remained stable. Patient does admit to prolonged NSAID use. NSAIDs currently o n hold no previous history of colonoscopy. Possible scopes, awaiting GI services. patient has had 4 black stools in the last 24 hours. 2. Recent urinary tract infection. Patient was discharged on Cipro. Urine culture from 10/17/2019 currently E. coli. Will start patient on Rocephin while inpatient. 3. Large ovarian cyst. CT completed on 10/17/2019 showing large pelvic thin- walled cyst on the left side that are probably ovarian cyst no free fluid no evidence of renal structure multiple renal calculi without obstruction. [employer] services have been consulted. Awaiting CA 125 results. 4. History of left arm fracture. Patient reports this was a few months ago but has been taking NSAIDs including Aleve and ibuprofen for this issue 5. History of hyperlipidemia. Patient maintained on statin 6. History of essential hypertension. Home meds resumed 7. History of left eye cataract removal 8. 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
--- NOTE | 2019-10-22 12:22 | US ---
EXAMINATION TYPE: US pelvic complete DATE OF EXAM: 10/22/2019 COMPARISON: CT 5 days ago CLINICAL HISTORY: Pelvic cyst seen on computed tomography scan. TECHNIQUE: . Transabdominal sonographic images of the pelvis were acquired. Date of LMP: Years ago EXAM MEASUREMENTS: Uterus: Surgically absent Endometrial Stripe: Surgically absent Right Ovary: 1.4 x 0.8 x 1.2 cm cm Left Ovary: Not visualized with certainty 1. Uterus: Surgically absent 2. Endometrium: Surgically absent 3. Right Ovary: wnl 4. Left Ovary: Not visualized with certainty 5. Bilateral Adnexa: Left adnexal cystic area visualized measuring 15.8 x 6.8 x 8.9 cm 6. Posterior cul-de-sac: wnl Technologist yeh adjacent cystic lesions in the left pelvis as single modality. This is difficult t o say with certainty. There are 3-4 distinct cystic lesions suspected on CT with 3 distinct cystic le sions suspected on ultrasound images saved. No suspicious septal thickening or nodularity on CT or ul trasound. Single dependent calcific focus in largest lesion 8.0 cm long axis axial image 65. It is no donna lesions are fairly isodense to bladder but do appear distinct from bladder to exclude diverticulu m. Technologist does identify a normal-sized right ovary towards end of study which I do not well visual ize on corresponding CT. IMPRESSION: Confirmation of suspected adjacent cystic masses left pelvis Which is abnormal finding in postmenopausal female. Cystic ovarian neoplasm cannot be excluded. Gynecology oncology surgical refe rral advised. Due to size even if benign surgical exploration may be necessary due to local mass effe ct.
[2019-10-22 14:17] VITALS: BMI 25.8
[2019-10-22] MEDS ORDERED: PEG 3350-NA SULF,BICARB,CL/KCL 4,000 ML BOTTLE PO ONE (17:00)
[2019-10-22] MEDS: LATANOPROST 0.005% OPHTH DROPS 2.5 ML BTL RIGHT EYE SCH (20:21)
[2019-10-23] MEDS: ARTIFICIAL TEARS-HYPROMELLOSE DROPS 15 ML BTL BOTH EYES SCH ×2 (07:52→20:32)
[2019-10-23] MEDS: MULTIVITAMINS, THERA 1 EACH TAB PO SCH (07:52)
[2019-10-23] MEDS: ATORVASTATIN 20 MG TAB PO SCH (07:53)
[2019-10-23] MEDS: PANTOPRAZOLE 40 MG/10 ML VIAL IVP SCH (07:53)
[2019-10-23] MEDS: amLODIPine 10 MG TAB PO SCH (07:53)
[2019-10-23] MEDS: MONTELUKAST 10 MG TAB PO SCH (07:53)
[2019-10-23 08:18] LABS: Basophils % (A) 0 %; Eosinophils # (A) 0.2 k/uL (0-0.7); Eosinophils % (A) 2 %; HCT 28.4 % (34.0-46.0); HGB 8.8 gm/dL (11.4-16.0); Hypochromasia Slight; Lymphocytes # (A) 0.5 k/uL (1.0-4.8); Lymphocytes % (A) 6 %; MCH 29.5 pg (25.0-35.0); MCV 95.1 fL (80.0-100.0); Mean Platelet Volume 8.3; Monocytes # (A) 0.4 k/uL (0-1.0); Monocytes % (A) 5 %; Neutrophils # (A) 6.2 k/uL (1.3-7.7); Neutrophils % (A) 85 %; Platelet Count 261 k/uL (150-450); RBC 2.99 m/uL (3.80-5.40); RDW 14.5 % (11.5-15.5); WBC 7.3 k/uL (3.8-10.6)
[2019-10-23 08:40] LABS: ALT 13 U/L (4-34); AST 28 U/L (14-36); African American GFR (CKD) >90 (>60 ml/min/1.73 sqM); Albumin 2.8 g/dL (3.5-5.0); Alkaline Phosphatase 71 U/L (38-126); Anion Gap 8 mmol/L; Blood Urea Nitrogen 22 mg/dL (7-17); Calcium 8.6 mg/dL (8.4-10.2); Carbon Dioxide 21 mmol/L (22-30); Chloride 111 mmol/L (98-107); Glucose 89 mg/dL (74-99); Non-African American GFR(CKD) >90 (>60 ml/min/1.73 sqM); Potassium 3.4 mmol/L (3.5-5.1); Sodium 140 mmol/L (137-145); Total Bilirubin 0.5 mg/dL (0.2-1.3); Total Protein 5.2 g/dL (6.3-8.2)
--- NOTE | 2019-10-23 08:44 | P.CONS ---
History of Present Illness - Reason for Consult Consult date: 10/22/19 GI bleed Requesting physician: Tonja Salmeron - Chief Complaint Dark stool - History of Present Illness 78-year-old female with multiple medical comorbidities including hyperlipidemia, hypertension and 7th nerve palsy who presented to the hospital due to concerns over possible GI bleed. The patient was seen earlier in the week at which time she had complained of abdominal pain and computed tomography scan was done showing a large ovarian cyst, at that time the patient was diagnosed with a UTI and discharged. She presented back to the hospital due to complaints of dark- colored stool. She reports that the stools have been black and tarry in nature. This is been occurring over the past 3 days. She denies any history of GERD or prior history of peptic ulcer disease. No prior EGD or colonoscopy. The patient and/or per does use Motrin PM which she has been doing for the past 1-2 months. She has had pain after a broken arm. On presentation, WBC 10, hemoglobin 10.2, platelet count 311,000, creatinine 0.56, total bilirubin 0.7, alkaline phosphatase 78, AST 18, and ALT 11. Review of Systems REVIEW OF SYSTEMS: CONSTITUTIONAL: Denies any fevers, chills, weight change or fatigue. CARDIOVASCULAR: Denies any chest pain, palpitations high or low blood pressures RESPIRATORY: Denies any shortness of breath, hemoptysis or cough. GENITOURINARY: No dysuria or hematuria. MUSCULOSKELETAL: No weakness reported. SKIN: Denies any new rashes or lesions, jaundice or pallor. PSYCHIATRIC: Denies any depression or anxiety. NEUROLOGY: Denies headache, denies any new focal deficits. EARS/NOSE/THROAT: No recent hearing change, congestion, nasal discharge or sore throat. EYES: No pain in eyes, discharge or change in vision. GASTROINTESTINAL: As per HPI. 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, LEFT EYE CATARACT REMOVED, NO SITE IN RIGHT EYE History of Any Multi-Drug Resistant Organisms: None Reported Past Surgical History: Hysterectomy, Tonsillectomy, Tubal Ligation Additional Past Surgical History / Comment(s): eye surgery Past Anesthesia/Blood Transfusion Reactions: No Reported Reaction Smoking Status: Former smoker - Past Family History Father Family Medical History: Cancer Additional Family Medical History / Comment(s): BONE AND LIVER CANCER Mother Additional Family Medical History / Comment(s): MOTHER AT 25 YEARS OLD, UNKNOWN Medications and Allergies Home Medications Medication Instructions Recorded Confirmed Type Latanoprost [Xalatan 0.005%] 1 drop RIGHT EYE HS 12/27/16 10/21/19 History Montelukast Sodium [Singulair] 10 mg PO DAILY 12/27/16 10/21/19 History Multivitamins, Thera [Multivitamin 1 tab PO DAILY 12/27/16 10/21/19 History (formulary)] amLODIPine/ATORVASTATIN [Caduet 10 1 tab PO DAILY 12/27/16 10/21/19 History mg-20 mg Tablet] Systane Eye Ointment 1 applic BOTH EYES BID 10/21/19 10/21/19 History Allergies Allergy/AdvReac Type Severity Reaction Status Date / Time No Known Allergies Allergy Verified 10/21/19 15:12 Physical Exam Vitals: Vital Signs Temp Pulse Pulse Pulse Resp BP BP 10/22/19 12:10 98.4 F 86 16 116/73 10/22/19 05:39 97.2 F L 81 16 125/68 10/21/19 22:04 98 F 84 16 126/61 10/21/19 17:41 97.6 F 96 18 119/76 10/21/19 16:00 18 10/21/19 14:54 72 18 127/72 Pulse Ox 10/22/19 12:10 99 10/22/19 05:39 95 10/21/19 22:04 95 10/21/19 17:41 97 10/21/19 16:00 10/21/19 14:54 Intake and Output 10/21/19 10/22/19 10/22/19 22:59 06:59 14:59 Intake Total 1200 240 Balance 1200 240 Intake: Intake, IV Titration 1200 Amount Sodium Chloride 0.9% 1, 1200 000 ml @ 100 mls/hr IV . Q10H ONE Rx#:[id number] Oral 240 Other: Voiding Method Toilet Toilet # Voids 1 3 Weight 72.575 kg 72.575 kg On physical examination, patient appears comfortable in no apparent distress. HEAD: Normocephalic, atraumatic. EYES: No scleral icterus. No conjunctival injection. MOUTH: No lesions, tongue midline. NECK: Trachea midline, no gross abnormalities. CHEST: Clear to auscultation with no wheezing or rhonchi appreciated. HEART: Regular rate and rhythm. ABDOMEN: Soft, thin. Bowel sounds are positive. No organomegaly. No guarding or rigidity. EXTREMITIES: No pedal edema. SKIN: No rashes, no jaundice. NEUROLOGIC: Alert and oriented x3. Seventh nerve palsy. Results CBC & Chem 7: 10/23/19 07:35 10/22/19 08:34 Labs: Abnormal Lab Results - Last 24 Hours (Table) 10/21/19 10/22/19 10/22/19 Range/Units 19:31 00:59 08:34 RBC 3.16 L 3.01 L (3.80-5.40) m/uL Hgb 9.3 L D 9.1 L (11.4-16.0) gm/dL Hct 30.5 L 28.5 L (34.0-46.0) % MCHC 30.4 L (31.0-37.0) g/dL Neutrophils # (1.3-7.7) k/uL Lymphocytes # 0.5 L 0.6 L (1.0-4.8) k/uL Chloride 113 H (98-107) mmol/L Carbon Dioxide 20 L (22-30) mmol/L BUN 37 H (7-17) mg/dL Total Protein 5.6 L (6.3-8.2) g/dL Albumin 3.1 L (3.5-5.0) g/dL 10/22/19 Range/Units 08:34 RBC 3.49 L (3.80-5.40) m/uL Hgb 10.2 L (11.4-16.0) gm/dL Hct 32.4 L (34.0-46.0) % MCHC (31.0-37.0) g/dL Neutrophils # 8.8 H (1.3-7.7) k/uL Lymphocytes # 0.5 L (1.0-4.8) k/uL Chloride (98-107) mmol/L Carbon Dioxide (22-30) mmol/L BUN (7-17) mg/dL Total Protein (6.3-8.2) g/dL Albumin (3.5-5.0) g/dL CT scan - abdomen: report reviewed (Computed tomography scan showing large pelvic thin-walled left-sided cysts) Assessment and Plan (1) GI bleed Narrative/Plan: 78-year-old female with multiple medical comorbidities who presented to the hospital due to concerns over possible GI bleed. The patient was seen earlier in the week at which time she had complained of abdominal pain and computed tomography scan was done showing a large ovarian cyst and was diagnosed with a UTI and discharged. She presented back to the hospital due to complaints of dark-colored stool. She reports that the stools have been black and tarry in nature. This is been occurring over the past 3 days. She denies any history of GERD or prior history of peptic ulcer disease. No prior EGD or colonoscopy. The patient and/or per does use Motrin PM which she has been doing for the past 1-2 months. On presentation, hemoglobin was 10.2. Unknown etiology of anemia with differential including peptic ulcer disease, gastritis, esophagitis, AVM or lower GI pathology of bleeding. Current Visit: Yes Status: Acute Code(s): K92.2 - GASTROINTESTINAL HEM ORRHAGE, UNSPECIFIED SNOMED Code(s): 44910360 (2) Anemia associated with acute blood loss Current Visit: Yes Status: Acute Code(s): D62 - ACUTE POSTHEMORRHAGIC ANEMIA SNOMED Code(s): 953955224 Plan: Supportive care Okay for liquid diet Nothing by mouth after midnight Continue to monitor CBC and transfuse as needed Avoid NSAID use Plan for EGD and colonoscopy for further evaluation of anemia and symptoms of melena tomorrow Further recommendations pending findings of endoscopy Thank you for allowing us to participate in the care of this patient we will continue to follow
--- NOTE | 2019-10-23 09:00 | P.PN ---
Subjective Progress Note Date: 10/23/19 Principal diagnosis: GI bleed and adnexal cyst Mrs. Jackson reports a restless night however denies any significant new abdominal or pelvic pain. She continues to have dark stools. She is scheduled for EGD and colonoscopy today. Objective - Vital Signs Vital signs: Vital Signs Temp 96.4 F L 10/23/19 05:00 Pulse 72 10/23/19 05:00 Resp 16 10/23/19 05:39 BP 122/60 10/23/19 05:00 Pulse Ox 95 10/23/19 05:00 Intake & Output 10/22/19 10/23/19 10/23/19 18:59 06:59 18:59 Intake Total 2160 1790 Balance 2160 1790 Weight 72.575 kg Intake: Intake, IV Titration 1200 Amount cefTRIAXone 1 gm In 1200 Sodium Chloride 0.9% 50 ml @ 100 mls/hr IVPB Q24HR NANCI Rx#:[id number] Oral 2160 590 Other: Voiding Method Toilet Toilet # Voids 3 3 - Exam This is a pleasant elderly female resting comfortably in bed. Alert and oriented. Abdomen is soft and nontender with no rebound and no guarding. No vaginal bleeding. - Labs CBC & Chem 7: 10/23/19 07:35 10/23/19 07:35 Labs: Abnormal Lab Results - Last 24 Hours (Table) 10/22/19 10/22/19 10/23/19 Range/Units 08:34 08:34 07:35 RBC 3.49 L (3.80-5.40) m/uL Hgb 10.2 L (11.4-16.0) gm/dL Hct 32.4 L (34.0-46.0) % Neutrophils # 8.8 H (1.3-7.7) k/uL Lymphocytes # 0.5 L (1.0-4.8) k/uL Potassium 3.4 L (3.5-5.1) mmol/L Chloride 113 H 111 H (98-107) mmol/L Carbon Dioxide 20 L 21 L (22-30) mmol/L BUN 37 H 22 H (7-17) mg/dL Creatinine 0.51 L (0.52-1.04) mg/dL Total Protein 5.6 L 5.2 L (6.3-8.2) g/dL Albumin 3.1 L 2.8 L (3.5-5.0) g/dL 10/23/19 Range/Units 07:35 RBC 2.99 L (3.80-5.40) m/uL Hgb 8.8 L (11.4-16.0) gm/dL Hct 28.4 L (34.0-46.0) % Neutrophils # (1.3-7.7) k/uL Lymphocytes # 0.5 L (1.0-4.8) k/uL Potassium (3.5-5.1) mmol/L Chloride (98-107) mmol/L Carbon Dioxide (22-30) mmol/L BUN (7-17) mg/dL Creatinine (0.52-1.04) mg/dL Total Protein (6.3-8.2) g/dL Albumin (3.5-5.0) g/dL Assessment and Plan (1) GI bleed Narrative/Plan: EGD and colonoscopy planned for today. Current hemoglobin 8.8. Current Visit: Yes Status: Acute Code(s): K92.2 - GASTROINTESTINAL HEMORR BATSHEVA, UNSPECIFIED SNOMED Code(s): 55308711 (2) Ovarian cyst Narrative/Plan: Pelvic ultrasound confirms presence of large simply cystic left adnexal structure measuring 15.8 x 6.8 x 8.9. This has no significant Doppler blood flow, complexity, wall thickening or solid components. This is most likely left ovarian in nature but cannot rule out lymphocele or peritoneal loculations of fluid. CA-125 level is normal. I believe ovarian or pelvic malignancy is very unlikely. The location of the cyst is amenable to interventional radiology performing CT guided aspiration of the cyst and the fluid sent for cytology for diagnosis. I did discuss this possibility with the radiologist and with the patient and she is amenable to having this done during her hospitalization if appropriate. Current Visit: Yes Status: Acute Code(s): N83.209 - UNSPECIFIED OVARIAN CYST, UNSPECIFIED SIDE SNOMED Code(s): 17688767 (3) Urinary tract infection Current Visit: No Status: Acute Code(s): N39.0 - URINARY TRACT INFECTION, SITE NOT SPECIFIED SNOMED Code(s): 80318335 (4) Anemia associated with acute blood loss Current Visit: Yes Status: Acute Code(s): D62 - ACUTE POSTHEMORRHAGIC ANEMIA SNOMED Code(s): 927442457
[2019-10-23] MEDS: POTASSIUM CHLORIDE 10 MEQ in WATER FOR INJECTION 1 100ML.BAG IVPB SCH ×2 (10:53→12:34)
--- NOTE | 2019-10-23 11:12 | P.PN ---
Subjective Progress Note Date: 10/23/19 This is a 78-year-old female patient of Dr. Camargo patient presented to the ER with complaints of abdominal pain and concerns for GI bleed. Patient reports that she's had abdominal pain over the past week which prompted her to come to the ER on Saturday she will underwent a CT in the found a large ovarian cysts diagnosed with UTI. Patient was released from the ER on antibiotics. Patient went home and then 2 days later started having dark stools. Patient does report that she broke her arm a few months ago and has been taking Aleve regularly along with ibuprofen p.m. and her baby aspirin. Patient states she's never had a colonoscopy due to her choice. Past medical history does include hyperlip idemia and hypertension. Patient denies any alcohol use. Urine culture from 10/17/2019 showing E. coli. Will start patient on Rocephin for urinary tract infection. GI service is consulted for GI bleed. [employer] service is consulted for large ovarian cyst. NSAIDs currently on hold. At this time patient denies chest pain or shortness of breath. Patient denies nausea vomiting or diarrhea. Patient denies any urinary burning or frequency. Patient seen on 10/22/2019. Patient seen resting comfortably in bed with her at the bedside. Patient patient states she is feeling well today with no acute complaints. Patient states she has had for all movements that have been black performed. Patient denies any chest pain or shortness of breath. Patient denies any urinary burning or frequency. Patient denies any nausea vomiting or diarrhea. Gynecology consultation regarding left ovarian cyst awaiting CA-125 levels. GI services following. Possible scopes. 10/23/2019 patient scheduled for EGD and colonoscopy today. Hemoglobin has dropped to 8.8. She did have some black stools yesterday. This morning she's had no further Botox's. Potassium is 3.4 will be replaced. She's followed by [facility] for the left large ovarian cyst. [facility] doubted that it was malignant they're asking radiology for CT-guided aspiration. Will await their final recommendations. Patient denies any abdominal pain nausea or vomiting at this time. Denies any chest pain or shortness of breath. Denies any burning with urination. She is on Rocephin for UTI. Objective - Vital Signs Vital signs: Vital Signs Temp 96.4 F L 10/23/19 05:00 Pulse 72 10/23/19 05:00 Resp 16 10/23/19 05:39 BP 122/60 10/23/19 05:00 Pulse Ox 95 10/23/19 05:00 Intake & Output 10/22/19 10/23/19 10/23/19 18:59 06:59 18:59 Intake Total 2160 1790 Balance 2160 1790 Weight 72.575 kg 72.575 kg Intake: Intake, IV Titration 1200 Amount cefTRIAXone 1 gm In 1200 Sodium Chloride 0.9% 50 ml @ 100 mls/hr IVPB Q24HR [facility]ANCI Rx#:[id number] Oral 2160 590 Other: Voiding Method Toilet Toilet Toilet # Voids 3 3 - Exam Head normocephalic Neck supple Lungs clear to auscultation bilaterally no wheezing or crackles Heart regular rate and rhythm S1-S2, no rub or gallop Abdomen is soft nontender nondistended positive bowel sounds no hepatosplenomegaly Extremities no edema Neuro alert and orientated to 3 - Labs CBC & Chem 7: 10/23/19 07:35 10/23/19 07:35 Labs: Abnormal Lab Results - Last 24 Hours (Table) 10/23/19 10/23/19 Range/Units 07:35 07:35 RBC 2.99 L (3.80-5.40) m/uL Hgb 8.8 L (11.4-16.0) gm/dL Hct 28.4 L (34.0-46.0) % Lymphocytes # 0.5 L (1.0-4.8) k/uL Potassium 3.4 L (3.5-5.1) mmol/L Chloride 111 H (98-107) mmol/L Carbon Dioxide 21 L (22-30) mmol/L BUN 22 H (7-17) mg/dL Creatinine 0.51 L (0.52-1.04) mg/dL Total Protein 5.2 L (6.3-8.2) g/dL Albumin 2.8 L (3.5-5.0) g/dL Assessment and Plan Assessment: 1. Abdominal pain with GI bleed. Patient scheduled for EGD and colonoscopy today. Hemoglobin has dropped to 8.8. Patient does admit to prolonged NSAID use. NSAIDs currently on hold no previous history of colonoscopy. 2. Recent urinary tract infection. Patient was discharged on Cipro. Patient did not complete the Cipro prescription. Urine culture from 10/17/2019 currently E. coli. Will start patient on Rocephin while inpatient. 3. Large ovarian cyst. CT completed on 10/17/2019 showing large pelvic thin- walled cyst on the left side that are probably ovarian cyst no free fluid no ev idence of renal structure multiple renal calculi without obstruction. Followed by [facility]. CA-125 is normal at 18.1. [facility] is recommending patient to have interventional radiology perform CT-guided aspiration of the left ovarian cyst and fluid sent for cytology for diagnosis. 4. History of left arm fracture. Patient reports this was a few months ago but has been taking NSAIDs including Aleve and ibuprofen for this issue 5. History of hyperlipidemia. Patient maintained on statin 6. History of essential hypertension. Home meds resumed 7. History of left eye cataract removal 8. 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 History of some nerve bilateral pulses he continued into the drooping of patient's eyes and mouth. 10. Acute blood loss anemia secondary to GI bleed. Continue to monitor hemoglobin. Continue IV Protonix. DVT prophylaxis SCDs due to GI bleed GI prophylaxis Protonix I performed an examination of the patient and discussed their management with the physician Sand Miller. I have reviewed the Physician Sand Miller's notes and agree with the documented findings and plan of care
[2019-10-23] MEDS ORDERED: IV FLUID CONTINUATION 1,000 ML IV ONE (13:37)
[2019-10-23] MEDS ORDERED: ePHEDrine SULFATE/0.9% NACL/PF 50 MG/5 ML SYRINGE IV ONE (13:40)
[2019-10-23] MEDS ORDERED: LIDOCAINE 1% INJ 10MG/ML (20 ML MDV) ONE (13:40)
[2019-10-23] MEDS ORDERED: PROPOFOL 10 MG/ML 20 ML VIAL IV ONE (13:40)
[2019-10-23] MEDS ORDERED: LACTATED RINGERS 1,000 ML IV ONE (14:08)
--- NOTE | 2019-10-23 14:17 | P.PCN ---
Date of Procedure: 10/23/19 Procedure(s) Performed: Brief history: Patient is a pleasant 78-year-old white female, admitted to the hospital with black tarry stools and anemia with hemoglobin of 9 g/dL. She's been taking Motrin as needed. She is hence scheduled for an elective upper endoscopy as well as colonoscopy . Procedure performed: Esophagogastroduodenoscopy with biopsy Colonoscopy Preoperative diagnosis: Anemia/melena Anest[place]: [facility] [place] Procedure: After informed consent was obtained from the patient was brought into the endoscopy unit and IV sedation was administered by anesthesia under continuous monitoring. Initially upper endoscopy was done. The Olympus GF 160 video endoscope was inserted inserted into the mouth and esophagus intubated without any difficulty and was gradually advanced into the stomach and duodenum and carefully examined. The second part of the duodenum appeared normal. The bulb of the duodenum there were 2 large ulcers noted measuring 1 cm and 3 cm with a deep crater but no active bleeding. The scope was then withdrawn into the stomach adequately insufflated with air and upon careful examination the antrum and mild gastritis and biopsies were done from this area. The body, cardia and fundus appeared normal. The scope was then withdrawn into the esophagus. The GE junction was located at 40 cm to the incisors. It appeared regular with no erythema erosions or ulcerations. Rest of the esophagus appeared normal. Patient tolerated the procedure well. At this time the patient continued to remain sedation. Initial digital rectal examination was normal. Olympus CF 160 video colonoscope was then inserted into the rectum and gradually advanced to the cecum without any difficulty. Careful examination was performed as the scope was gradually being withdrawn. The prep was excellent. The cecum, ascending colon, transverse colon, descending colon, sigmoid colon and rectum appeared normal. Retroflexion was performed in the rectum and small internal hemorrhoids were noted. Patient tolerated the procedure well. Impression: 1. Upper endoscopy revealed 1 cm and 3 cm large duodenal bulbar ulcer with a deep crater and no active bleeding as well as mild antral gastritis 2. Colonoscopy revealed small internal hemorrhoids but no evidence of colorectal neoplasia Recommendations: Findings of this examination were discussed with the patient. Continue with Protonix 40 mg twice daily. Await biopsy results. Avoid NSAIDs. Advance to full liquid diet.
[2019-10-23] MEDS: LATANOPROST 0.005% OPHTH DROPS 2.5 ML BTL RIGHT EYE SCH (20:32)
[2019-10-24 08:08] LABS: Basophils # (A) 0.1 k/uL (0-0.2); Basophils % (A) 1 %; Eosinophils # (A) 0.3 k/uL (0-0.7); Eosinophils % (A) 5 %; HCT 32.6 % (34.0-46.0); HGB 10.2 gm/dL (11.4-16.0); Hypochromasia Slight; Lymphocytes # (A) 0.4 k/uL (1.0-4.8); Lymphocytes % (A) 9 %; MCH 29.8 pg (25.0-35.0); MCHC 31.3 g/dL (31.0-37.0); MCV 95.3 fL (80.0-100.0); Mean Platelet Volume 7.9; Monocytes # (A) 0.3 k/uL (0-1.0); Monocytes % (A) 6 %; Neutrophils % (A) 77 %; Platelet Count 298 k/uL (150-450); RBC 3.42 m/uL (3.80-5.40); RDW 14.9 % (11.5-15.5); WBC 5.1 k/uL (3.8-10.6)
[2019-10-24 08:18] LABS: ALT 19 U/L (4-34); AST 40 U/L (14-36); African American GFR (CKD) >90 (>60 ml/min/1.73 sqM); Albumin 3.3 g/dL (3.5-5.0); Alkaline Phosphatase 83 U/L (38-126); Anion Gap 9 mmol/L; Blood Urea Nitrogen 10 mg/dL (7-17); Calcium 8.9 mg/dL (8.4-10.2); Carbon Dioxide 24 mmol/L (22-30); Chloride 109 mmol/L (98-107); Glucose 84 mg/dL (74-99); Non-African American GFR(CKD) >90 (>60 ml/min/1.73 sqM); Potassium 3.5 mmol/L (3.5-5.1); Sodium 142 mmol/L (137-145); Total Bilirubin 0.6 mg/dL (0.2-1.3); Total Protein 5.8 g/dL (6.3-8.2)
[2019-10-24] MEDS: PANTOPRAZOLE 40 MG/10 ML VIAL IVP SCH (08:20)
[2019-10-24] MEDS: ARTIFICIAL TEARS-HYPROMELLOSE DROPS 15 ML BTL BOTH EYES SCH (08:22)
[2019-10-24] MEDS: MULTIVITAMINS, THERA 1 EACH TAB PO SCH (08:22)
[2019-10-24] MEDS: MONTELUKAST 10 MG TAB PO SCH (08:22)
[2019-10-24] MEDS: ATORVASTATIN 20 MG TAB PO SCH (08:22)
[2019-10-24] MEDS: amLODIPine 10 MG TAB PO SCH (08:22)
--- NOTE | 2019-10-24 11:01 | PN ---
PROGRESS NOTE DATE OF DICTATION: 10/24/2019 Patient is a 78-year-old pleasant white female admitted to the hospital with severe symptomatic anemia and dark-colored stools. She underwent an EGD and colonoscopy by me yesterday that showed two large duodenal bulbar ulcers measuring 2 cm and 3 cm in size with large crater but no active bleeding. Patient is on a clear liquid diet, tolerating well. She denies any symptoms today. No further bleeding. No nausea, vomiting or abdominal pain. She has been taking NSAIDs for arthritis. PHYSICAL EXAMINATION: Appears comfortable. No apparent distress. Vital signs are stable. Blood pressure 120/60, pulse rate 74, temperature 97.5. HEENT examination unremarkable. Conjunctivae pink. Sclerae anicteric. Oral cavity no lesions. NECK: No JVD or lymph node enlargement. CHEST: Clear to auscultation. HEART: Regular rate and rhythm. ABDOMEN: Soft. Bowel sounds are positive. No organomegaly. EXTREMITIES: No pedal edema. SKIN: No rashes. NEUROLOGIC: Alert and oriented x3. No focal deficits. LABS: Labs from today show WBC 5.1, hemoglobin 10.2, platelets normal. IMPRESSION: Anemia with black tarry stools. EGD and colonoscopy done yesterday showed evidence of large duodenal bulbar ulcers with no active bleeding, status post biopsies, which are still pending. RECOMMENDATIONS: 1. Continue with Protonix 40 mg twice daily. 2. Avoid Aleve. 3. Advance to regular diet. 4. She can be discharged home today with outpatient followup in 3 to 4 weeks. Thank you for this consultation. MMODL / IJN: [id number] /
[2019-10-24 11:52] VITALS: BP 113/60; PULSE 84; TEMP 98.4
--- NOTE | 2019-10-24 11:55 | P.PN ---
Subjective Progress Note Date: 10/24/19 Pt comfortable, tolerating regular diet. No abdomenal pain Objective - Vital Signs Vital signs: Vital Signs Temp 97.5 F L 10/24/19 04:58 Pulse 74 10/24/19 04:58 Resp 16 10/24/19 04:58 BP 120/60 10/24/19 04:58 Pulse Ox 92 L 10/24/19 04:58 Intake & Output 10/23/19 10/24/19 10/24/19 18:59 06:59 18:59 Intake Total 450 2000 Balance 450 2000 Weight 72.575 kg Intake: IV 150 Intake, IV Titration 300 800 Amount Potassium Chloride 10 meq 200 In Water For Injection 1 100ml.bag @ 100 mls/hr IVPB Q1H NANCI Rx#: [id number] cefTRIAXone 1 gm In 100 800 Sodium Chloride 0.9% 50 ml @ 100 mls/hr IVPB Q24HR NANCI Rx#:[id number] Oral 1200 Other: Voiding Method Toilet Toilet Toilet # Voids 2 - Constitutional General appearance: Present: average body habitus, cooperative - EENT ENT: Present: hearing grossly normal - Neck Neck: Present: normal ROM - Respiratory Respiratory: bilateral: CTA - Cardiovascular Rhythm: regular - Gastrointestinal Gastrointestinal Comment(s): Absddomen softly distended, no pain, rebound, guarding. No obvious mass to palpation. General gastrointestinal: Present: normal bowel sounds - Neurologic Neurologic: Present: CNII-XII intact - Psychiatric Psychiatric: Present: A&O x's 3, appropriate affect, intact judgment & insight - Labs CBC & Chem 7: 10/24/19 07:53 10/24/19 07:53 Labs: Abnormal Lab Results - Last 24 Hours (Table) 10/24/19 10/24/19 Range/Units 07:53 07:53 RBC 3.42 L (3.80-5.40) m/uL Hgb 10.2 L (11.4-16.0) gm/dL Hct 32.6 L (34.0-46.0) % Lymphocytes # 0.4 L (1.0-4.8) k/uL Chloride 109 H (98-107) mmol/L Creatinine 0.50 L (0.52-1.04) mg/dL AST 40 H (14-36) U/L Total Protein 5.8 L (6.3-8.2) g/dL Albumin 3.3 L (3.5-5.0) g/dL Assessment and Plan Assessment: asymptomatic 15cm clear fluid filled L pelvic mass. (-) CA-125 noted. Plan: Discussion regarding CT guided needle aspiration of this mass. Pt is no longer NPO. Interventional radiology staff is not in house today (Saturday) and per department policy would only be called in for an emergency. Discussed with the patient who would like to go home today. Will follow up in our office in 4-[address] Allison unless she becomes symptomatic in any way. Repeat sonography will be done at that time to reassess size and morphology and consider option of CT guided aspiration. Pt will call the office to schedule. Time with Patient: Less than 30
--- NOTE | 2019-10-24 15:49 | P.DS ---
Providers Date of admission: 10/23/19 09:55 Expected date of discharge: 10/24/19 Attending physician: Tonja Salmeron Consults: 10/21/19 14:07 Consult Physician Urgent Consulting Provider: Ephraim Vazquez Consult Reason/Comments: GI bleed Do you want consulting provider notified?: Yes 10/21/19 14:36 Consult Physician Urgent Consulting Provider: Emily Allison Consult Reason/Comments: Large ovarian cysts Do you want consulting provider notified?: Yes Primary care physician: Scott Camargo [facility] Course: Diagnosis on discharge: 1. Abdominal pain with GI bleed. Patient scheduled for EGD and colonoscopy today. Hemoglobin has dropped to 8.8. Patient does admit to prolonged NSAID use. NSAIDs currently on hold no previous history of colonoscopy. 2. Recent urinary tract infection. Patient was discharged on Cipro. Patient did not complete the Cipro prescription. Urine culture from 10/17/2019 currently E. coli. Will start patient on Rocephin while inpatient. 3. Large ovarian cyst. CT completed on 10/17/2019 showing large pelvic thin- walled cyst on the left side that are probably ovarian cyst no free fluid no evidence of renal structure multiple renal calculi without obstruction. Followed by [facility] service. CA-125 is normal at 18.1. [facility] is recommending patient to have interventional radiology perform CT-guided aspiration of the left ovarian cyst and fluid sent for cytology for diagnosis. 4. History of left arm fracture. Patient reports this was a few months ago but has been taking NSAIDs including Aleve and ibuprofen for this issue 5. History of hyperlipidemia. Patient maintained on statin 6. History of essential hypertension. Home meds resumed 7. History of left eye cataract removal 8. 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 History of some nerve bilateral pulses he continued into the drooping of patient's eyes and mouth. 10. Acute blood loss anemia secondary to GI bleed. Continue to monitor hemoglobin. Continue IV Protonix. DVT prophylaxis SCDs due to GI bleed GI prophylaxis Protonix Hospital course: This is a 78-year-old female patient of Dr. Camargo patient presented to the ER with complaints of abdominal pain and concerns for GI bleed. Patient reports that she's had abdominal pain over the past week which prompted her to come to the ER on Saturday she will underwent a CT in the found a large ovarian cysts diagnosed with UTI. Patient was released from the ER on antibiotics. Patient went home and then 2 days later started having dark stools. Patient does report that she broke her arm a few months ago and has been taking Aleve regularly along with ibuprofen p.m. and her baby aspirin. Patient states she's never had a colonoscopy due to her choice. Past medical history does include hyp erlipidemia and hypertension. Patient denies any alcohol use. Urine culture from 10/17/2019 showing E. coli. Will start patient on Rocephin for urinary tract infection. GI service is consulted for GI bleed. [facility] [facility] [employer] service is consulted for large ovarian cyst. NSAIDs currently on hold. At this time patient denies chest pain or shortness of breath. Patient denies nausea vomiting or diarrhea. Patient denies any urinary burning or frequency. Patient seen on 10/22/2019. Patient seen resting comfortably in bed with her at the bedside. Patient patient states she is feeling well today with no acute complaints. Patient states she has had for all movements that have been black performed. Patient denies any chest pain or shortness of breath. Patient denies any urinary burning or frequency. Patient denies any nausea vomiting or diarrhea. Gynecology consultation regarding left ovarian cyst awaiting CA-125 levels. GI services following. Possible scopes. 10/23/2019 patient scheduled for EGD and colonoscopy today. Hemoglobin has dropped to 8.8. She did have some black stools yesterday. This morning she's had no further Botox's. Potassium is 3.4 will be replaced. She's followed by [facility] for the left large ovarian cyst. [facility] doubted that it was malignant they're asking radiology for CT-guided aspiration. Will await their final recommendations. Patient denies any abdominal pain nausea or vomiting at this time. Denies any chest pain or shortness of breath. Denies any burning with urination. She is on Rocephin for UTI. On 10/24/2019 patient was seen and examined on the medical floor she is alert and oriented 3 in no apparent distress, there is no abdominal pain, there is no nausea or vomiting, diet was advanced by gastroenterology and patient was able to tolerate diet well, she was evaluated by gynecology, and decision was made to proceed with outpatient monitoring and possible aspiration of the large left ovarian cyst as outpatient in 4-6 weeks if needed. Patient was cleared for discharge by gastroenterology and gynecology, she will be discharged home today she would follow with her primary care physician Dr. Camargo in 2-3 days. Plan - Discharge Summary Discharge Rx Participant: No New Discharge Prescriptions: New Cefuroxime Axetil [Ceftin] 500 mg PO BID 5 Days #10 tab Ferrous Sulfate [Feosol] 325 mg PO DAILY 30 Days #30 tab Pantoprazole Sodium [Protonix] 40 mg PO AC-BRKFST 30 Days #30 tablet.dr Jame Latanoprost [Xalatan 0.005%] 1 drop RIGHT EYE HS amLODIPine/ATORVASTATIN [Caduet 10 mg-20 mg Tablet] 1 tab PO DAILY Multivitamins, Thera [Multivitamin (formulary)] 1 tab PO DAILY Montelukast Sodium [Singulair] 10 mg PO DAILY Systane Eye Ointment 1 applic BOTH EYES BID Discharge Medication List Latanoprost [Xalatan 0.005%] 1 drop RIGHT EYE HS 12/27/16 [History] Montelukast Sodium [Singulair] 10 mg PO DAILY 12/27/16 [History] Multivitamins, Thera [Multivitamin (formulary)] 1 tab PO DAILY 12/27/16 [History] amLODIPine/ATORVASTATIN [Caduet 10 mg-20 mg Tablet] 1 tab PO DAILY 12/27/16 [History] Systane Eye Ointment 1 applic BOTH EYES BID 10/21/19 [History] Cefuroxime Axetil [Ceftin] 500 mg PO BID 5 Days #10 tab 10/24/19 [Rx] Ferrous Sulfate [Feosol] 325 mg PO DAILY 30 Days #30 tab 10/24/19 [Rx] Pantoprazole Sodium [Protonix] 40 mg PO AC-BRKFST 30 Days #30 tablet. 10/24/19 [Rx] Follow up Appointment(s)/Referral(s): Emily Allison MD [STAFF PHYSICIAN] - 4 Weeks (Follow up in 4-6 weeks for visit and ultrasound. Call for earlier appointment if you become symptomatic. ) Scott Camargo MD [Primary Care Provider] - 1-2 days Patient Instructions/Handouts: Ovarian Cyst (DC), Gastrointestinal Bleeding (DC)
== END 2019-10-24 16:52 | disposition home or self-care (01) | DRG 378 ==
LOC: EC 09:54 → 5NMEDONC 14:07 → OBSVTOIN 10-23 09:55
PROVIDERS: ADMIT Internal Medicine; ATTEND Internal Medicine
PROC: 0DB78ZX Excision of Stomach, Pylorus, Via Natural or Artificial Opening Endoscopic, Diagnostic (ICD-10-PCS; principal; 2019-10-23 12:50)
PROC: 0DJD8ZZ Inspection of Lower Intestinal Tract, Via Natural or Artificial Opening Endoscopic (ICD-10-PCS; principal; 2019-10-23 12:50)
DX: K26.4 Chronic or unspecified duodenal ulcer with hemorrhage (principal); D62 Acute posthemorrhagic anemia; N39.0 Urinary tract infection, site not specified; K29.71 Gastritis, unspecified, with bleeding; E78.5 Hyperlipidemia, unspecified; E87.6 Hypokalemia; G51.0 Bell's palsy; H54.61 Unqualified visual loss, right eye, normal vision left eye; I10 Essential (primary) hypertension; K64.8 Other hemorrhoids; M19.90 Unspecified osteoarthritis, unspecified site; N83.202 Unspecified ovarian cyst, left side; B96.20 Unspecified Escherichia coli [E. coli] as the cause of diseases classified elsewhere; Z79.82 Long term (current) use of aspirin; Z79.899 Other long term (current) drug therapy; Z87.81 Personal history of (healed) traumatic fracture; Z87.891 Personal history of nicotine dependence; Z90.710 Acquired absence of both cervix and uterus; Z98.51 Tubal ligation status; Z98.42 Cataract extraction status, left eye; Z96.1 Presence of intraocular lens; Z80.0 Family history of malignant neoplasm of digestive organs; Z80.8 Family history of malignant neoplasm of other organs or systems
CPT/HCPCS: 36415; 43239; 45378; 76856; 80053; 83605; 83735; 84484; 85025; 85610; 85730; 86304; 86850; 86900; 86901; 88305; 90686; 93005; 96360; 96361; 99285

== ENCOUNTER 2022-02-14 11:07 | Observation (INO) | payer MEDICARE, BC ==
[2022-02-14 12:58] LABS: HCT 54.7 % (34.0-46.0); HGB 16.9 gm/dL (11.4-16.0); MCH 29.5 pg (25.0-35.0); MCHC 30.8 g/dL (31.0-37.0); MCV 95.7 fL (80.0-100.0); Mean Platelet Volume 8.4; Platelet Count 246 k/uL (150-450); RBC 5.72 m/uL (3.80-5.40); RDW 14.6 % (11.5-15.5); WBC 7.1 k/uL (3.8-10.6)
[2022-02-14 12:59] LABS: Basophils % (A) 1 %; Eosinophils # (A) 0.2 k/uL (0-0.7); Eosinophils % (A) 2 %; Lymphocytes # (A) 1.3 k/uL (1.0-4.8); Lymphocytes % (A) 18 %; Monocytes # (A) 0.6 k/uL (0-1.0); Monocytes % (A) 9 %; Neutrophils # (A) 4.8 k/uL (1.3-7.7); Neutrophils % (A) 68 %
--- NOTE | 2022-02-14 13:00 | XR ---
EXAMINATION TYPE: XR chest 2V DATE OF EXAM: 02/14/2022 COMPARISON: Chest x-ray August 20, 2019 HISTORY: Chest pain and tingling into left arm. TECHNIQUE: Frontal and lateral views of the chest are obtained. FINDINGS: Improved inspiration with elevated and eventrated posterior aspect left hemidiaphragm on cu rrent study . There is chronic parenchymal changes bilaterally with patchy right basilar opacity. No pleural effusion or pneumothorax is seen bilaterally. The cardiac silhouette size is stable and mildl y enlarged. Malunion fracture left proximal humerus redemonstrated. IMPRESSION: Chronic changes and cardiomegaly with patchy right basilar acute infiltrate and/or atele ctasis.
[2022-02-14 13:20] LABS: Albumin 4.7 g/dL (3.5-5.0); Calcium 9.8 mg/dL (8.4-10.2); Magnesium 2.4 mg/dL (1.6-2.3); Potassium 4.4 mmol/L (3.5-5.1); Total Bilirubin 0.9 mg/dL (0.2-1.3); Total Protein 7.5 g/dL (6.3-8.2)
[2022-02-14 13:48] LABS: INR 0.9 (<1.2); Prothrombin Time 10.4 sec (9.0-12.0)
[2022-02-14] MEDS ORDERED: NITROGLYCERIN SL TABS 0.4 MG TAB SUBLINGUAL PRN (13:57)
--- NOTE | 2022-02-14 13:57 | ED ---
Chest Pain HPI - General Chief Complaint: Chest Pain Stated Complaint: Chest tightness Time Seen by Provider: 02/14/22 11:13 Source: patient, RN notes reviewed Mode of arrival: wheelchair Limitations: no limitations - History of Present Illness Initial Comments: 81-year-old female presents emergency Department chief complaint chest pressure. Patient states an episode day or so ago but states that it went away and states that she started having chest pressure radiating down her left arm today. Patient states she has a history of hypertension. Denies any other prior cardiac disease states that she didn't have any factors that made it worse. Patient states that she does not feel short of breath no fevers chills no cough or cold like symptoms. - Related Data Home Medications Medication Instructions Recorded Confirmed Latanoprost [Xalatan 0.005%] 1 drop RIGHT EYE HS 12/27/16 02/14/22 Montelukast Sodium [Singulair] 10 mg PO HS 12/27/16 02/14/22 Multivitamins, Thera [Multivitamin 1 tab PO DAILY 12/27/16 02/14/22 (formulary)] amLODIPine/ATORVASTATIN [Caduet 10 1 tab PO DAILY 12/27/16 02/14/22 mg-20 mg Tablet] Brimonidine Tartrate [Alphagan P 1 drop RIGHT EYE BID 02/14/22 02/14/22 0.2% Ophth Soln] Fluorometholone 0.1% Ophth Elyssa 1 drop LEFT EYE HS 02/14/22 02/14/22 [Fml] Pantoprazole Sodium [Protonix] 40 mg PO DAILY 02/14/22 02/14/22 Timolol 0.5% Ophth Soln [Timoptic 1 drop RIGHT EYE HS 02/14/22 02/14/22 0.5% Ophth Soln] Allergies Allergy/AdvReac Type Severity Reaction Status Date / Time No Known Allergies Allergy Verified 02/14/22 11:12 Review of Systems ROS Statement: Those systems with pertinent positive or pertinent negative responses have been documented in the HPI. ROS Other: All systems not noted in ROS Statement are negative. 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, LEFT EYE CATARACT REMOVED, NO SITE IN RIGHT EYE History of Any Multi-Drug Resistant Organisms: None Reported Past Surgical History: Hysterectomy, Tonsillectomy, Tubal Ligation Additional Past Surgical History / Comment(s): eye surgery Past Anesthesia/Blood Transfusion Reactions: No Reported Reaction Past Psychological History: No Psychological Hx Reported Smoking Status: Former smoker Past Alcohol Use History: None Reported Past Drug Use History: None Reported - Past Family History Father Family Medical History: Cancer Additional Family Medical History / Comment(s): BONE AND LIVER CANCER Mother Additional Family Medical History / Comment(s): MOTHER AT 25 YEARS OLD, UNKNOWN General Exam Limitations: no limitations General appearance: alert, in no apparent distress Head exam: Present: atraumatic, normocephalic, normal inspection Eye exam: Present: PERRL, EOMI, conjunctival injection. Absent: normal appearance, scleral icterus, periorbital swelling ENT exam: Present: normal exam, mucous membranes moist Neck exam: Present: normal inspection. Absent: tenderness, meningismus, lymphadenopathy Respiratory exam: Present: normal lung sounds bilaterally. Absent: respiratory distress, wheezes, rales, rhonchi, stridor Cardiovascular Exam: Present: regular rate, normal rhythm, normal heart sounds. Absent: systolic murmur, diastolic murmur, rubs, gallop, clicks Neurological exam: Present: alert Skin exam: Present: warm, dry, intact, normal color. Absent: rash Course Vital Signs 02/14/22 02/14/22 02/14/22 11:10 12:12 13:13 Temperature 97.6 F Pulse Rate 81 74 72 Respiratory 20 16 18 Rate Blood Pressure 177/88 155/77 151/77 O2 Sat by Pulse 97 95 Oximetry Chest Pain [facility] 81-year-old female presented from for chest pressure. This workup was negative patient has multiple risk factors, concern for ACS symptoms. Patiently admitted for cardiac rule out. Disposition Clinical Impression: Chest pain Disposition: ADMITTED IP TO THIS [facility] Referrals: Marylou Jose MD [Primary Care Provider] - 1-2 days Time of Disposition: 13:56
--- NOTE | 2022-02-14 17:22 | P.HPIM ---
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 She presented to the emergency department with a chief complaint of chest pressure. Patient reported she initially felt this chest pain/pressure a couple days ago but it went away after approximately 1 hour and did not return again until awakening today. Patient states today she awoke with mid sternal chest pain/pressure which seemed to be more intense and was accompanied by pain radiating down her left arm and tingling in her fingers. Patient states in addition to this she became slightly diaphoretic with nausea/upset stomach. Patient denies feeling headache, lightheadedness, dizziness, palpitations, shortness of breath, cough or congestion, vomiting, abdominal pain, or expe riencing any numbness/weakness/swelling in her extremities. She underwent full evaluation in the emergency department. EKG completed revealing sinus rhythm at 76 bpm. Chest x-ray revealing chronic changes with cardiomegaly and patchy right basilar acute infiltrate and/or atelectasis. CBC and CMP showing no significant abnormalities with the exception of slightly elevated hemoglobin of 16.9, prerenal azotemia with BUN of 29, elevated magnesium level of 2.4, an elevated alkaline phosphatase of 131. Troponin negative 2 draws at less than 0.012. Patient was admitted under our services consulted cardiology. Review of systems: Pertinent positives and negatives as discussed in HPI, a complete review of systems was performed and all other systems are negative. Physical exam: Vital signs reviewed and stable. General: Nontoxic, no distress and appears stated age. Derm: Skin warm and dry, normal coloration for ethnicity. Head: Atraumatic, normocephalic and symmetric. Eyes: EOMs intact, no lid lag, and anicteric sclera Mouth: no lip lesions, mucus membranes moist Cardiovascular: regular rate and rhythm with normal S1S2, no murmur, positive posterior tibial pulses bilaterally, and cap refill < 2 seconds. Lungs: Respirations even, regular, and unlabored on room air. Lungs CTA bilaterally, no rhonchi, no rales, no wheezing, and no accessory muscle usage. Abdominal: soft, nontender to palpation, no guarding, no appreciable organomegaly Ext: ROM intact. No gross muscle atrophy, no edema, no contractures Neuro: Speech clear, face symmetrical and CN II-XII grossly intact with no noted focal neuro deficits Psych: Alert and oriented to person, place, time, and situation. Appropriate and pleasant affect. Assessment and Plan of Care: Chest pain, rule out acute coronary event -Cardiology consulted, appreciate further recommendations -Telemetry monitoring -Trend troponins -Cardiac diet, NPO at midnight -Aspirin, atorvastatin, and amlodipine -Lipid profile with a.m. labs. -Echocardiogram Hypertension -Monitor vital signs and continue daily medication regimen with amlodipine. Hyperlipidemia -Continue daily medication regimen with atorvastatin. GERD -Continue daily medication regimen with Protonix. The patient is admitted with an anticipated less than 2 midnight stay for evaluation of chest pain. CODE STATUS: DO NOT RESUSCITATE/DO NOT INTUBATE DVT prophylaxis: Heparin Discussed with: Patient and RN Anticipated discharge date: Likely tomorrow Anticipated discharge place: Home A total of 42 minutes was spent on the care of this complex patient more than 5 0% of the time was spent in counseling and care coordination. I reviewed the documentation as provided by the TIERNEY above, who is the original author of this note. 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, LEFT EYE CATARACT REMOVED, NO SITE IN RIGHT EYE History of Any Multi-Drug Resistant Organisms: None Reported Past Surgical History: Hysterectomy, Tonsillectomy, Tubal Ligation Additional Past Surgical History / Comment(s): eye surgery Past Anesthesia/Blood Transfusion Reactions: No Reported Reaction Past Psychological History: No Psychological Hx Reported Smoking Status: Former smoker Past Alcohol Use History: None Reported Past Drug Use History: None Reported - Past Family History Father Family Medical History: Cancer Additional Family Medical History / Comment(s): BONE AND LIVER CANCER Mother Additional Family Medical History / Comment(s): MOTHER AT 25 YEARS OLD, UNKNOWN Medications and Allergies Home Medications Medication Instructions Recorded Confirmed Type Latanoprost [Xalatan 0.005%] 1 drop RIGHT EYE HS 12/27/16 02/14/22 History Montelukast Sodium [Singulair] 10 mg PO HS 12/27/16 02/14/22 History Multivitamins, Thera [Multivitamin 1 tab PO DAILY 12/27/16 02/14/22 History (formulary)] amLODIPine/ATORVASTATIN [Caduet 10 1 tab PO DAILY 12/27/16 02/14/22 History mg-20 mg Tablet] Brimonidine Tartrate [Alphagan P 1 drop RIGHT EYE BID 02/14/22 02/14/22 History 0.2% Ophth Soln] Fluorometholone 0.1% Ophth Elyssa 1 drop LEFT EYE HS 02/14/22 02/14/22 History [Fml] Pantoprazole Sodium [Protonix] 40 mg PO DAILY 02/14/22 02/14/22 History Timolol 0.5% Ophth Soln [Timoptic 1 drop RIGHT EYE HS 02/14/22 02/14/22 History 0.5% Ophth Soln] Allergies Allergy/AdvReac Type Severity Reaction Status Date / Time No Known Allergies Allergy Verified 02/14/22 11:12 Physical Exam Osteopathic Statement: *. No significant issues noted on an osteopathic structural exam other than those noted in the History and Physical/Consult. Vitals: Vital Signs Temp Pulse Resp BP Pulse Ox 02/14/22 13:13 72 18 151/77 95 02/14/22 12:12 74 16 155/77 02/14/22 11:10 97.6 F 81 20 177/88 97 Intake and Output 02/14/22 02/14/22 02/14/22 06:59 14:59 22:59 Other: Weight 77.111 kg Results CBC & Chem 7: 02/14/22 11:44 02/14/22 11:44 Labs: Abnormal Lab Results - Last 24 Hours (Table) 02/14/22 02/14/22 Range/Units 11:44 11:44 RBC 5.72 H (3.80-5.40) m/uL Hgb 16.9 H (11.4-16.0) gm/dL Hct 54.7 H (34.0-46.0) % MCHC 30.8 L (31.0-37.0) g/dL BUN 29 H (7-17) mg/dL Glucose 108 H (74-99) mg/dL Magnesium 2.4 H (1.6-2.3) mg/dL Alkaline Phosphatase 131 H (38-126) U/L
[2022-02-14] MEDS: BRIMONIDINE TARTRATE 0.2% DROPS 5 ML BTL RIGHT EYE SCH (20:43)
[2022-02-14] MEDS: TIMOLOL 0.5% OPHTH DROPS 5 ML BTL RIGHT EYE SCH (20:43)
[2022-02-14] MEDS: LATANOPROST 0.005% OPHTH DROPS 2.5 ML BTL RIGHT EYE SCH (20:44)
[2022-02-14] MEDS: FLUOROMETHOLONE 0.1% OPHTH DROPS 5 ML BTL LEFT EYE SCH (20:45)
[2022-02-14] MEDS: MONTELUKAST 10 MG TAB PO SCH (20:46)
[2022-02-14] MEDS: HEPARIN SODIUM,PORCINE/PF 5,000 UNIT/0.5 ML SYRINGE SQ SCH (20:46)
[2022-02-15] MEDS ORDERED: REGADENOSON 0.4 MG/5 ML SYRINGE IV PRN (07:43)
[2022-02-15] MEDS ORDERED: CAFFEINE CITRATE 60 MG/3 ML VIAL IV PRN (07:43)
[2022-02-15] MEDS ORDERED: AMINOPHYLLINE 500 MG/20 ML VIAL IV PRN (07:43)
[2022-02-15] MEDS: PANTOPRAZOLE 40 MG TABLET PO SCH (08:37)
[2022-02-15] MEDS: BRIMONIDINE TARTRATE 0.2% DROPS 5 ML BTL RIGHT EYE SCH ×2 (08:38→22:19)
[2022-02-15] MEDS ORDERED: ASPIRIN 325 MG TAB PO SCH (09:00)
[2022-02-15] MEDS: amLODIPine 10 MG TAB PO SCH (09:05)
[2022-02-15] MEDS: MULTIVITAMINS, THERA 1 EACH TAB PO SCH (09:05)
[2022-02-15] MEDS: ASPIRIN 81 MG PO SCH (09:05)
[2022-02-15] MEDS: ATORVASTATIN 20 MG TAB PO SCH (09:05)
--- NOTE | 2022-02-15 09:20 | CA ---
Transthoracic Echo Report Name: Bere Jackson Age: 81 Gender: F : 1940 Exam Date: 02/14/2022 14:13 Exam Location: [facility] Ht (in): 66 Wt (lb): 170 Ordering Physician: Dmitri Copeland Attending/Referring Phys: [id number], Dinorah Beamer Helper Sabi Rondon, LAUREL Procedure CPT: Indications: Chest Pain Cardiac Hx: Technical Quality: Fair Contrast 1: Total Dose (mL): Contrast 2: Total Dose (mL): MEASUREMENTS (Male / Female) Normal Values 2D ECHO LV Diastolic Diameter PLAX 2.8 cm 4.2 - 5.9 / 3.9 - 5.3 cm LV Systolic Diameter PLAX 1.5 cm IVS Diastolic Thickness 1.5 cm 0.6 - 1.0 / 0.6 - 0.9 cm LVPW Diastolic Thickness 1.5 cm 0.6 - 1.0 / 0.6 - 0.9 cm LV Relative Wall Thickness 1.0 RV Internal Dim ED PLAX 2.3 cm LA Volume 53.6 cm??? 18 - 58 / 22 - 52 cm??? M-MODE Aortic Root Diameter MM 2.9 cm LA Systolic Diameter MM 3.3 cm LA Ao Ratio MM 1.1 AV Cusp Separation MM 1.8 cm DOPPLER AV Peak Velocity 171.8 cm/s AV Peak Gradient 11.8 mmHg AI Peak Velocity 363.7 cm/s AI Peak Gradient 52.9 mmHg AI Pressure Half Time 307.2 ms MV Area PHT 2.5 cm??? Mitral E Point Velocity 67.3 cm/s Mitral A Point Velocity 99.5 cm/s Mitral E to A Ratio 0.7 MV Deceleration Time 297.6 ms MV E' Velocity 5.3 cm/s Mitral E to MV E' Ratio 12.6 TR Peak Velocity 187.1 cm/s TR Peak Gradient 14.0 mmHg Right Ventricular Systolic Press 19.0 mmHg FINDINGS Left Ventricle Moderately increased left ventricular wall thickness. Normal left ventricular systolic function with no obvious regional wall motion abnormalities. Normal left ventricular diastolic filling pattern. Left ventricular ejection fraction is estimated at 55-60 %. Right Ventricle Normal right ventricular size and function. Right ventricular systolic pressure within normal limits. Right Atrium Mild right atrial dilatation. Left Atrium Mildly increased left atrial volume. No evidence for an atrial septal defect. Mitral Valve Mild mitral regurgitation. Aortic Valve Trileaflet aortic valve. Mild aortic regurgitation. Tricuspid Valve Mild tricuspid regurgitation. Pulmonic Valve Structurally normal pulmonic valve. Trace pulmonic regurgitation. Pericardium No pericardial effusion. Aorta Normal size aortic root and proximal ascending aorta. CONCLUSIONS Normal left ventricular dimension and systolic function Mild aortic regurgitation Previewed by: Dr. Gómez Garcia MD (Electronically Signed) Final Date: 15 Feb 2022 09:18
--- NOTE | 2022-02-15 09:50 | P.CRDCN ---
History of Present Illness History of present illness: HISTORY OF PRESENTING ILLNESS This is a pleasant 81-year-old female past medical history significant for hypertension. 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 We have been asked to see in consultation for chest pain. Patient presents to the emergency department with complaints of chest discomfort. Yesterday she states it woke her up in the morning. Describes it as chest heaviness and pressure. It is located in the midsternal, center chest. Radiated to the left arm. Left fingers ting ling. No specific alleviating or aggravating factors. She had similar pain a few days ago, lasted for about an hour, however, no left arm radiation at that time. She had associated nausea and diaphoresis. She denies any shortness of breath, weakness, dizziness, palpitations, diaphoresis, nausea, vomiting, lightheadedness, syncope. DIAGNOSTICS EKG reveals sinus rhythm, heart rate 76, non specific abnormalities, T wave inversion in lead V2, T wave flattening in lead aVL, no acute ischemia. Telemetry tracings indicate sinus mechanism Chest xray chronic changes bilaterally with patchy right basilar opacity, cardiomegaly. Echocardiogram revealed EF of 5560 percent, mild mitral regurgitation, mild aortic regurgitation Laboratory reviewed, troponin negative 3, proBNP 241, WBC 7.1, hemoglobin 16.9, platelets 2 5046, sodium 142, potassium 4.4, BUN 29, serum crit 0.8, magnesium 2.4 Current home medications include amlodipine/atorvastatin 10 mg20 mg daily, Singulair, Latanoprost, Timoptic, Alphagan, Protonix, multivitamin REVIEW OF SYSTEMS At the time of my exam: CONSTITUTIONAL: Denies fever or chills. CARDIOVASCULAR: Denies chest pain, shortness of breath, orthopnea, PND or palpitations. RESPIRATORY: Denies cough. GASTROINTESTINAL: Denies abdominal pain, diarrhea, constipation, nausea or vomiting. MUSCULOSKELETAL: Denies myalgias. NEUROLOGIC: Denies numbness, tingling, headache or weakness. ENDOCRINE: Denies fatigue, weight change, polydipsia or polyurina. GENITOURINARY: Denies burning, hematuria or urgency with micturation. HEMATOLOGIC: Denies history of anemia or bleeding. PHYSICAL EXAMINATION Blood pressure 151/83, heart 68, afebrile, oxygen saturation is 93% on room air CONSTITUTIONAL: No apparent distress. HEENT: Head is normocephalic. Pupils are equal, round. Sclerae anicteric. Mucous membranes of the mouth are moist. No JVD. No carotid bruit. CHEST EXAMINATION: Lungs are clear to auscultation. No chest wall tenderness is noted on palpation or with deep breathing. HEART EXAMINATION: Regular rate and rhythm. S1, S2 heard. No murmurs, gallops or rub. ABDOMEN: Soft, nontender. Positive bowel sounds. EXTREMITIES: 2+ peripheral pulses, no lower extremity edema and no calf tenderness. SKIN: warm, dry NEUROLOGIC EXAMINATION: Patient is awake, alert and oriented x3. ASSESSMENT Chest pain, atypical, acute coronary syndrome has been ruled out History of hypertension PLAN An acute coronary event has been ruled out with no EKG evidence of ischemia and negative cardiac enzymes. Echocardiogram revealed EF 55-60% Perform Lexiscan stress test to assess for stress induced cardiac ischemia. If abnormal will consider coronary angiography. If stress test is negative, no further inpatient testing from cardiology perspective for chest pain. Thank you kindly for this consultation. Nurse practitioner note has been reviewed by physician. Signing provider agrees with the documented findings, assessment, and plan of care. 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, LEFT EYE CATARACT REMOVED, NO SITE IN RIGHT EYE History of Any Multi-Drug Resistant Organisms: None Reported Past Surgical History: Hysterectomy, Tonsillectomy, Tubal Ligation Additional Past Surgical History / Comment(s): eye surgery Past Anesthesia/Blood Transfusion Reactions: No Reported Reaction Past Psychological History: No Psychological Hx Reported Smoking Status: Former smoker Past Alcohol Use History: None Reported Past Drug Use History: None Reported - Past Family History Father Family Medical History: Cancer Additional Family Medical History / Comment(s): BONE AND LIVER CANCER Mother Additional Family Medical History / Comment(s): MOTHER AT 25 YEARS OLD, UNKNOWN Medications and Allergies Home Medications Medication Instructions Recorded Confirmed Type Latanoprost [Xalatan 0.005%] 1 drop RIGHT EYE HS 12/27/16 02/14/22 History Montelukast Sodium [Singulair] 10 mg PO HS 12/27/16 02/14/22 History Multivitamins, Thera [Multivitamin 1 tab PO DAILY 12/27/16 02/14/22 History (formulary)] amLODIPine/ATORVASTATIN [Caduet 10 1 tab PO DAILY 12/27/16 02/14/22 History mg-20 mg Tablet] Brimonidine Tartrate [Alphagan P 1 drop RIGHT EYE BID 02/14/22 02/14/22 History 0.2% Ophth Soln] Fluorometholone 0.1% Ophth Elyssa 1 drop LEFT EYE HS 02/14/22 02/14/22 History [Fml] Pantoprazole Sodium [Protonix] 40 mg PO DAILY 02/14/22 02/14/22 History Timolol 0.5% Ophth Soln [Timoptic 1 drop RIGHT EYE HS 02/14/22 02/14/22 History 0.5% Ophth Soln] Allergies Allergy/AdvReac Type Severity Reaction Status Date / Time No Known Allergies Allergy Verified 02/14/22 11:12 Physical Exam Vitals: Vital Signs Temp Pulse Pulse Resp BP BP Pulse Ox 02/15/22 02:38 98.3 F 67 16 167/85 93 L 02/15/22 02:00 77 02/14/22 20:29 92 L 02/14/22 19:25 97.8 F 77 17 145/84 92 L 02/14/22 19:19 88 16 02/14/22 16:50 97.5 F L 88 16 157/79 93 L 02/14/22 16:18 76 18 151/85 95 02/14/22 15:00 80 18 165/87 94 L 02/14/22 13:13 72 18 151/77 95 02/14/22 12:12 74 16 155/77 02/14/22 11:10 97.6 F 81 20 177/88 97 FiO2 02/15/22 02:38 02/15/22 02:00 02/14/22 20:29 21 02/14/22 19:25 02/14/22 19:19 02/14/22 16:50 02/14/22 16:18 02/14/22 15:00 02/14/22 13:13 02/14/22 12:12 02/14/22 11:10 Intake and Output 02/14/22 02/15/22 02/15/22 22:59 06:59 14:59 Intake Total 0 Balance 0 Intake: Oral 0 Other: Voiding Method Toilet # Voids 1 1 Weight 77.111 kg Results 02/14/22 11:44 02/14/22 11:44 Cardiac Enzymes 02/14/22 02/14/22 02/14/22 Range/Units 11:44 11:44 15:11 AST 23 (14-36) U/L Troponin I <0.012 <0.012 (0.000-0.034) ng/mL 02/14/22 Range/Units 18:06 AST (14-36) U/L Troponin I <0.012 (0.000-0.034) ng/mL Coagulation 02/14/22 Range/Units 11:44 PT 10.4 (9.0-12.0) sec APTT 27.0 (22.0-30.0) sec CBC 02/14/22 Range/Units 11:44 WBC 7.1 (3.8-10.6) k/uL RBC 5.72 H (3.80-5.40) m/uL Hgb 16.9 H (11.4-16.0) gm/dL Hct 54.7 H (34.0-46.0) % Plt Count 246 (150-450) k/uL Comprehensive Metabolic Panel 02/14/22 Range/Units 11:44 Sodium 142 (137-145) mmol/L Potassium 4.4 (3.5-5.1) mmol/L Chloride 105 (98-107) mmol/L Carbon Dioxide 27 (22-30) mmol/L BUN 29 H (7-17) mg/dL Creatinine 0.86 (0.52-1.04) mg/dL Glucose 108 H (74-99) mg/dL Calcium 9.8 (8.4-10.2) mg/dL AST 23 (14-36) U/L ALT 19 (4-34) U/L Alkaline Phosphatase 131 H (38-126) U/L Total Protein 7.5 (6.3-8.2) g/dL Albumin 4.7 (3.5-5.0) g/dL Current Medications Generic Name Dose Route Start Last Admin Trade Name Freq PRN Reason Stop Dose Admin Amlodipine Besylate 10 mg 02/15/22 09:00 Amlodipine 10 Mg Tab PO DAILY [facility] Aspirin 325 mg 02/15/22 09:00 Aspirin 325 Mg Tab PO DAILY [facility] Atorvastatin Calcium 20 mg 02/15/22 09:00 Atorvastatin 20 Mg Tab PO DAILY [facility] Brimonidine Tartrate 1 drops 02/14/22 21:00 02/14/22 20:43 Brimonidine Tartrate 0.2% Drops 5 Ml Btl RIGHT EYE 1 drops BID [facility]ANCI Administration Fluorometholone 1 drops 02/14/22 21:00 02/14/22 20:45 Fluorometholone 0.1% Ophth Drops 5 Ml Btl LEFT EYE 1 drops HS [facility]ANCI Administration Heparin Sodium (Porcine) 5,000 unit 02/14/22 21:00 02/14/22 20:46 Heparin Sodium,Porcine/Pf 5,000 Unit/0.5 Ml Syringe SQ 5,000 unit Q12HR [facility]CI Administration Latanoprost 1 drops 02/14/22 21:00 02/14/22 20:44 Latanoprost 0.005% Ophth Drops 2.5 Ml Btl RIGHT EYE 1 drops HS [facility]CI Administration Montelukast Sodium 10 mg 02/14/22 21:00 02/14/22 20:46 Montelukast 10 Mg Tab PO 10 mg HS [facility] Administration Multivitamins 1 each 02/15/22 09:00 Multivitamins, Thera 1 Each Tab PO DAILY [facility] Nitroglycerin 0.4 mg 02/14/22 13:57 Nitroglycerin Sl Tabs 0.4 Mg Tab SUBLINGUAL Q5M PRN Chest Pain Pantoprazole Sodium 40 mg 02/15/22 09:00 Pantoprazole 40 Mg Tablet PO DAILY [facility] Timolol Maleate 1 drops 02/14/22 21:00 02/14/22 20:43 Timolol 0.5% Ophth Drops 5 Ml Btl RIGHT EYE 1 drops HS [facility]ANCI Administration Intake and Output 02/14/22 02/15/22 02/15/22 22:59 06:59 14:59 Intake Total 0 Balance 0 Intake: Oral 0 Other: Voiding Method Toilet # Voids 1 1 Weight 77.111 kg 02/14/22 11:44 02/14/22 11:44
[2022-02-15] MEDS: HEPARIN SODIUM,PORCINE/PF 5,000 UNIT/0.5 ML SYRINGE SQ SCH ×2 (14:56→22:17)
[2022-02-15 15:02] LABS: Chol/HDL Ratio 2.88 Ratio; LDL Cholesterol,Calculated 73.1 mg/dL (0.0-131.0)
--- NOTE | 2022-02-15 17:37 | P.PN ---
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 She presented to the emergency department with a chief complaint of chest pressure. Patient reported she initially felt this chest pain/pressure a couple days ago but it went away after approximately 1 hour and did not return again until awakening today. Patient states today she awoke with mid sternal chest pain/pressure which seemed to be more intense and was accompanied by pain radiating down her left arm and tingling in her fingers. Patient states in addition to this she became slightly diaphoretic with nausea/upset stomach. She underwent full evaluation in the emergency department. EKG completed revealing sinus rhythm at 76 bpm. Chest x-ray revealing chronic changes with cardiomegaly and patchy right basilar acute infiltrate and/or atelectasis. CBC and CMP showing no significant abnormalities with the exception of slightly elevated hemoglobin of 16.9, prerenal azotemia with BUN of 29, elevated magnesium level of 2.4, an elevated alkaline phosphatase of 131. Troponin negative 2 draws at less than 0.012. Patient was admitted under our services consulted cardiology. Patient monitored overnight. Troponins trended all negative at less than 0.0123 draws. Lipid profile unremarkable. Echocardiogram completed revealing normal EF of 55-60% with mild aortic regurgitation and no significant valvular abnormalities. Patient underwent a Lexiscan stress test which is currently pending results. Physical exam: Patient seen and fully evaluated at bedside upon return from stress test. She was doing well and currently free from any chest pain or other complaints. Patient is medically stable and plan is for discharge once Lexiscan stress test results are negative. Vital signs reviewed and stable. General: Nontoxic, no distress and appears stated age. Derm: Skin warm and dry, normal coloration for ethnicity. Head: Atraumatic, normocephalic and symmetric. Eyes: EOMs intact, no lid lag, and anicteric sclera Mouth: no lip lesions, mucus membranes moist Cardiovascular: regular rate and rhythm with normal S1S2, no murmur, positive posterior tibial pulses bilaterally, and cap refill < 2 seconds. Lungs: Respirations even, regular, and unlabored on room air. Lungs CTA b ilaterally, no rhonchi, no rales, no wheezing, and no accessory muscle usage. Abdominal: soft, nontender to palpation, no guarding, no appreciable organomegaly Ext: ROM intact. No gross muscle atrophy, no edema, no contractures Neuro: Speech clear, face symmetrical and CN II-XII grossly intact with no noted focal neuro deficits Psych: Alert and oriented to person, place, time, and situation. Appropriate and pleasant affect. Assessment and Plan of Care: Chest pain, rule out acute coronary event -Cardiology following, patient went to Lexiscan stress test and is currently pending results -Telemetry monitoring -Troponins negative 3 draws. -Cardiac diet -Aspirin, atorvastatin, and amlodipine -Lipid profile unremarkable. -Echocardiogram showing normal EF of 55-60% and mild aortic regurgitation. Hypertension -Monitor vital signs and continue daily medication regimen with amlodipine. Hyperlipidemia -Continue daily medication regimen with atorvastatin. GERD -Continue daily medication regimen with Protonix. The patient is admitted with an anticipated less than 2 midnight stay for ev aluation of chest pain. CODE STATUS: DO NOT RESUSCITATE/DO NOT INTUBATE DVT prophylaxis: Heparin Discussed with: Patient and RN Anticipated discharge date: Likely tomorrow Anticipated discharge place: Home A total of 31 minutes was spent on the care of this complex patient more than 50% of the time was spent in counseling and care coordination. I reviewed the documentation as provided by the TIERNEY above, who is the original author of this note. I agree with the documented assessment and plan, with the following changes: none Objective - Vital Signs Vital signs: Vital Signs Temp 97.9 F 02/15/22 14:52 Pulse 79 02/15/22 14:52 Resp 18 02/15/22 14:52 BP 146/76 02/15/22 14:52 Pulse Ox 94 L 02/15/22 14:52 FiO2 21 02/14/22 20:29 Intake & Output 02/14/22 02/15/22 02/15/22 18:59 06:59 18:59 Intake Total 0 250 Balance 0 250 Weight 77.111 kg Intake: Oral 0 250 Other: Voiding Method Toilet Toilet # Voids 1 3 - Labs CBC & Chem 7: 02/14/22 11:44 02/14/22 11:44
[2022-02-15] MEDS: MONTELUKAST 10 MG TAB PO SCH (22:17)
[2022-02-15] MEDS: TIMOLOL 0.5% OPHTH DROPS 5 ML BTL RIGHT EYE SCH (22:19)
[2022-02-15] MEDS: FLUOROMETHOLONE 0.1% OPHTH DROPS 5 ML BTL LEFT EYE SCH (22:19)
[2022-02-15] MEDS: LATANOPROST 0.005% OPHTH DROPS 2.5 ML BTL RIGHT EYE SCH (22:20)
--- NOTE | 2022-02-16 06:40 | NM ---
EXAMINATION TYPE: NM stress lexiscan cardiolite DATE OF EXAM: 02/16/2022 COMPARISON: Prior study December 28, 2016 HISTORY: History of hypertension and prior tobacco use along with hypercholesterolemia presents with chest pain TECHNIQUE: After the intravenous administration of 9.5 mCi Tc 99m Sestamibi - Cardiolite resting SPE CT images acquired 45 minutes post injection. The patient received 0.4mg Lexiscan, 24.8 mCi Tc 99m Sestamibi - Stress images obtained [address] injection FINDINGS: Review of stress and rest SPECT images demonstrates no distinct perfusion abnormality. Gated analysi s shows normal wall motion with an estimated left ventricular ejection fraction of 71 %. IMPRESSION: No scintigraphic evidence for reversible ischemia. No significant change from prior.
--- NOTE | 2022-02-16 07:37 | P.PN ---
Progress Note - Text Progress Note Date: 02/16/22 The patient is a pleasant 81-year-old female patient was admitted to the hospital with a chest discomfort which was atypical and without for acute coronary syndrome. She underwent myocardial perfusion imaging stress test and that came in to be unremarkable for reversibility. She was seen this morning and she is chest pain-free. She is hemodynamically stable. The examination is unremarkable. From the cardiovascular standpoint of view, the patient can be discharged home and will follow-up with the patient as an outpatient
[2022-02-16] MEDS: amLODIPine 10 MG TAB PO SCH (08:02)
[2022-02-16] MEDS: ASPIRIN 81 MG PO SCH (08:02)
[2022-02-16] MEDS: ATORVASTATIN 20 MG TAB PO SCH (08:02)
[2022-02-16] MEDS: BRIMONIDINE TARTRATE 0.2% DROPS 5 ML BTL RIGHT EYE SCH (08:03)
[2022-02-16] MEDS: MULTIVITAMINS, THERA 1 EACH TAB PO SCH (08:03)
[2022-02-16] MEDS: PANTOPRAZOLE 40 MG TABLET PO SCH (08:03)
[2022-02-16] MEDS: HEPARIN SODIUM,PORCINE/PF 5,000 UNIT/0.5 ML SYRINGE SQ SCH (08:03)
[2022-02-16 08:29] VITALS: BP 101/64; PULSE 55; RESP 14; TEMP 97.5
--- NOTE | 2022-02-16 09:27 | P.DS ---
Providers Date of admission: 02/14/22 13:51 Expected date of discharge: 02/16/22 Attending physician: Tiffany Lawrence MD Consults: 02/14/22 13:57 Consult Physician Urgent Consulting Provider: Gómez Garcia Consult Reason/Comments: chest pain Do you want consulting provider notified?: Yes Primary care physician: Marylou Jose MD Hospital Course: Discharge Diagnosis: Chest pain, acute coronary event ruled out. Hypertension. Monitor vital signs and continue daily medication regimen with amlodipine. Hyperlipidemia. Continue daily medication regimen with atorvastatin. GERD. Continue daily medication regimen with Protonix. Seventh nerve bilateral palsy. Continue medication regimen with eyedrops. 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 She presented to the emergency department with a chief complaint of chest pressure. Patient reported she initially felt this chest pain/pressure a couple days ago but it went away after approximately 1 hour and did not return again until awakening today. Patient states today she awoke with mid sternal chest pain/pressure which seemed to be more intense and was accompanied by pain radiating down her left arm and tingling in her fingers. Patient states in addition to this she became slightly diaphoretic with nausea/upset stomach. She underwent full evaluation in the emergency department. EKG completed revealing sinus rhythm at 76 bpm. Chest x-ray revealing chronic changes with cardiomegaly and patchy right basilar acute infiltrate and/or atelectasis. CBC and CMP showing no significant abnormalities with the exception of slightly elevated hemoglobin of 16.9, prerenal azotemia with BUN of 29, elevated magnesium level of 2.4, an elevated alkaline phosphatase of 131. Troponin negative 2 draws at less than 0.012. Patient was admitted under our services consulted cardiology. Patient monitored overnight. Troponins trended all negative at less than 0.0123 draws. Lipid profile unremarkable. Echocardiogram completed revealing normal EF of 55-60% with mild aortic regurgitation and no significant valvular abnormalities. Patient underwent a Lexiscan stress test which was negative showing no scintigraphic evidence for reversible ischemia. Patient cleared from cardiac perspective recommending outpatient follow-up in their office. Patient medically clear at this time. Patient to follow up outpatient with PCP and cardiology. Physical exam: Vital signs reviewed and stable. General: Nontoxic, no distress and appears stated age. Derm: Skin warm and dry, normal coloration for ethnicity. Head: Atraumatic, normocephalic and symmetric. Eyes: EOMs intact, no lid lag, and anicteric sclera Mouth: no lip lesions, mucus membranes moist Cardiovascular: regular rate and rhythm with normal S1S2, no murmur, positive posterior tibial pulses bilaterally, and cap refill < 2 seconds. Lungs: Respirations even, regular, and unlabored on room air. Lungs CTA bilaterally, no rhonchi, no rales, no wheezing, and no accessory muscle usage. Abdominal: soft, nontender to palpation, no guarding, no appreciable organomegaly Ext: ROM intact. No gross muscle atrophy, no edema, no contractures Neuro: Speech clear, face symmetrical and CN II-XII grossly intact with no noted focal neuro deficits Psych: Alert and oriented to person, place, time, and situation. Appropriate and pleasant affect. A total of 33 minutes of time were spent preparing this complex discharge summary. Pt was discharged on 02/16/22 at 9:25 AM I reviewed the documentation as provided by the TIERNEY above, who is the original author of this note. I agree with the documented assessment and plan, with the following changes: None Patient Condition at Discharge: Stable Plan - Discharge Summary Discharge Rx Participant: No New Discharge Prescriptions: Continue Latanoprost [Xalatan 0.005%] 1 drop RIGHT EYE HS amLODIPine/ATORVASTATIN [Caduet 10 mg-20 mg Tablet] 1 tab PO DAILY Multivitamins, Thera [Multivitamin (formulary)] 1 tab PO DAILY Montelukast Sodium [Singulair] 10 mg PO HS Pantoprazole Sodium [Protonix] 40 mg PO DAILY Timolol 0.5% Ophth Soln [Timoptic 0.5% Ophth Soln] 1 drop RIGHT EYE HS Fluorometholone 0.1% Ophth Elyssa [Fml] 1 drop LEFT EYE HS Brimonidine Tartrate [Alphagan P 0.2% Ophth Soln] 1 drop RIGHT EYE BID Discharge Medication List Latanoprost [Xalatan 0.005%] 1 drop RIGHT EYE HS 12/27/16 [History] Montelukast Sodium [Singulair] 10 mg PO HS 12/27/16 [History] Multivitamins, Thera [Multivitamin (formulary)] 1 tab PO DAILY 12/27/16 [History] amLODIPine/ATORVASTATIN [Caduet 10 mg-20 mg Tablet] 1 tab PO DAILY 12/27/16 [History] Brimonidine Tartrate [Alphagan P 0.2% Ophth Soln] 1 drop RIGHT EYE BID 02/14/22 [History] Fluorometholone 0.1% Ophth Elyssa [Fml] 1 drop LEFT EYE HS 02/14/22 [History] Pantoprazole Sodium [Protonix] 40 mg PO DAILY 02/14/22 [History] Timolol 0.5% Ophth Soln [Timoptic 0.5% Ophth Soln] 1 drop RIGHT EYE HS 02/14/22 [History] Follow up Appointment(s)/Referral(s): óGmez Garcia MD [STAFF PHYSICIAN] - 03/12/22 3:15 pm Marylou Jose MD [Primary Care Provider] - 1-2 days Patient Instructions/Handouts: Chest Pain (DC) Activity/Diet/Wound Care/Special Instructions: Activity: As tolerated. Take breaks as needed. Diet: Heart healthy and carb consistent diet. Avoid salts, or foods with hidden salts such as canned or boxed foods and frozen dinners. Extra salt makes your heart work harder and traps the fluid in your body for longer. Special Instructions: Take all of your medications as directed and remember to keep all of your doct or's appointments and follow-up as needed. Thank you for allowing us to participate in your care, it was truly a pleasure having you for our patient!!! Discharge Disposition: HOME SELF-CARE
--- NOTE | 2022-02-16 13:43 | CA ---
Lexiscan Nuclear Stress Test Report Name: Bere Jackson Exam Date: 02/15/2022 10:05 Exam Location: [facility] Ht (in): 66 Wt (lb): 170 BSA: 1.87 Ordering Phys: Manju Durham Referring Phys: SOUTH/DUSTY,, Technologist: Jose Reyna Age: 81 Gender: F : 1940 Procedure CPT: Indications: Reflex order-Stress test ICD-10 Codes: Patient History: CHEST PAIN, NUMBNESS IN FACE/NECK, HTN, FORMER SMOKER, Medications: XALATAN, AMLODIPINE, MULTIVITAMIN, MONTELUKAST, TIMOLOL, FLUROMETHOLONE, BRIMONIDINE, PANTOPRAZOLE Meds past 24 hrs: Pretest Chest Pain: STRESS TEST Lexiscan Protocol Exercise Duration (min:sec): 02:[address] Depressions (mm): Angina Score: Peck Score: Resting HR (bpm): 80 Peak HR (bpm): 90 Resting BP (mmHg): 153 / 91 Peak BP (mmHg): 153 / 91 MPHR: 139 Target HR: 118 % MPHR: 65 METS: 1.0 Total Dose: Peak Dose: Atropine: Double Product: 35528 BP Response: Stress Termination: Stress Symptoms: Stress Summary: ECG ANALYSIS Resting ECG: Stress ECG: CONCLUSIONS Nondiagnostic electrocardiogram stress testing Please follow-up on the Cardiolite portion Dr. Gómez Garcia MD (Electronically Signed) Final Date: 16 Feb 2022 13:42
== END 2022-02-16 10:57 | disposition home or self-care (01) ==
LOC: EC 11:07 → 6NMEDSUR 13:51
PROVIDERS: ADMIT Internal Medicine; ATTEND Internal Medicine
DX: R07.2 Precordial pain (principal); I11.9 Hypertensive heart disease without heart failure; E78.5 Hyperlipidemia, unspecified; K21.9 Gastro-esophageal reflux disease without esophagitis; G83.9 Paralytic syndrome, unspecified; H54.7 Unspecified visual loss; R79.89 Other specified abnormal findings of blood chemistry; K30 Functional dyspepsia; R11.0 Nausea; R61 Generalized hyperhidrosis; R20.2 Paresthesia of skin; R74.8 Abnormal levels of other serum enzymes; Z79.899 Other long term (current) drug therapy; Z66 Do not resuscitate; Z98.42 Cataract extraction status, left eye; Z96.1 Presence of intraocular lens; Z87.891 Personal history of nicotine dependence; Z90.710 Acquired absence of both cervix and uterus; Z80.0 Family history of malignant neoplasm of digestive organs; Z71.3 Dietary counseling and surveillance; Z80.8 Family history of malignant neoplasm of other organs or systems
CPT/HCPCS: 99285; 96372 ×2; 36415; 94760; 93005; 93017; 93306; 83880; 80061; 80053; 83690; 83735; 84484; 85025; 85610; 85730; 71046; 78452; G0378 ×3; A9500; J2785; J1644 ×2

== ENCOUNTER 2023-03-03 10:46 | Emergency (ER) | payer MEDICARE, BC ==
--- NOTE | 2023-03-03 11:52 | ED ---
Upper Extremity HPI - General Chief Complaint: Extremity Injury, Upper Stated Complaint: Rt arm pain Time Seen by Provider: 03/03/23 11:40 Source: patient, RN notes reviewed Mode of arrival: ambulatory Limitations: no limitations - History of Present Illness Initial Comments: Patient is a pleasant 82-year-old female presenting to the emergency room with complaints of pain, deformity and decreased range of motion to her right wrist which began after falling onto her wrist and her lawn approximately 2 hours prior to arrival. She reports that she was leaning over to pick something up and lost her balance falling forward onto her arm. She denies any head trauma or any pain in any other joint. She denies any numbness or tingling in the affected joint. At this time she denies any other complaints or concerns. 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 - Related Data Home Medications Medication Instructions Recorded Confirmed Latanoprost [Xalatan 0.005%] 1 drop RIGHT EYE HS 12/27/16 02/14/22 Montelukast Sodium [Singulair] 10 mg PO HS 12/27/16 02/14/22 Multivitamins, Thera [Multivitamin 1 tab PO DAILY 12/27/16 02/14/22 (formulary)] amLODIPine/ATORVASTATIN [Caduet 10 1 tab PO DAILY 12/27/16 02/14/22 mg-20 mg Tablet] Brimonidine Tartrate [Alphagan P 1 drop RIGHT EYE BID 02/14/22 02/14/22 0.2% Ophth Soln] Fluorometholone 0.1% Ophth Elyssa 1 drop LEFT EYE HS 02/14/22 02/14/22 [Fml] Pantoprazole Sodium [Protonix] 40 mg PO DAILY 02/14/22 02/14/22 Timolol 0.5% Ophth Soln [Timoptic 1 drop RIGHT EYE HS 02/14/22 02/14/22 0.5% Ophth Soln] Allergies Allergy/AdvReac Type Severity Reaction Status Date / Time No Known Allergies Allergy Verified 03/03/23 11:25 Review of Systems ROS Statement: Those systems with pertinent positive or pertinent negative responses have been documented in the HPI. ROS Other: All systems not noted in ROS Statement are negative. 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, LEFT EYE CATARACT REMOVED, NO SITE IN RIGHT EYE History of Any Multi-Drug Resistant Organisms: None Reported Past Surgical History: Hysterectomy, Tonsillectomy, Tubal Ligation Additional Past Surgical History / Comment(s): eye surgery Past Anesthesia/Blood Transfusion Reactions: No Reported Reaction Past Psychological History: No Psychological Hx Reported Smoking Status: Former smoker Past Alcohol Use History: Occasional Past Drug Use History: None Reported - Past Family History Father Family Medical History: Cancer Additional Family Medical History / Comment(s): BONE AND LIVER CANCER Mother Additional Family Medical History / Comment(s): MOTHER AT 25 YEARS OLD, UNKNOWN General Exam Limitations: no limitations General appearance: alert, in no apparent distress Head exam: Present: atraumatic, normocephalic, normal inspection Eye exam: Present: other (Right elbow, Bilateral lower lid droop chronic. ) ENT exam: Present: mucous membranes moist Neck exam: Present: normal inspection, full ROM Respiratory exam: Absent: respiratory distress, accessory muscle use Cardiovascular Exam: Present: regular rate GI/Abdominal exam: Absent: distended, tenderness Right Forearm Wrist exam: Present: tenderness, swelling, deformity, tenderness over anatomical snuff box. Absent: full ROM, abrasion, laceration Vascular: Present: radial pulse. Absent: vascular compromise Back exam: Present: normal inspection, full ROM Neurological exam: Present: alert, oriented X3, CN II-XII intact, other (Abnormal speech due to seventh nerve palsy) Psychiatric exam: Present: normal affect, normal mood Skin exam: Present: warm, dry, intact, normal color. Absent: rash Course Vital Signs 03/03/23 03/03/23 11:23 13:18 Temperature 98.3 F 97.4 F L Pulse Rate 72 79 Respiratory 20 18 Rate Blood Pressure 136/60 127/82 O2 Sat by Pulse 96 95 Oximetry Procedures - Orthopedic Splinting/Casting Injury #1 Side: right Upper Extremity Injury Location: wrist Upper Extremity Immobilizer: sling/shoulder immobilizer, sugar tong splint Medical Decision Making - Medical Decision Making Was pt. sent in by a medical professional or institution (, PA, KINDERGARTEN TEACHER ASSISTANT, urgent care, hospital, or [place] health care facility...) When possible be specific @ -No Did you speak to anyone other than the patient for history (EMS, parent, family, police, friend...)? What history was obtained from this source @ -, spoke with neck tami AREVALO tong carrier for orthopedic city call regarding patient's fall and mildly commuted impacted dorsal angulated distal radial Colles' fracture. He advised for splinting and close follow-up in office. Splint placed patient neurovascularly intact pre-and post-splint application. Did you review nursing and triage notes (agree or disagree)? Why? @ -I reviewed and agree with nursing and triage notes Were old charts reviewed (outside hosp., previous admission, EMS record, old EKG, old radiological studies, urgent care reports/EKG's, [place] health care facility records)? Report findings @ -No old charts were reviewed Differential Diagnosis (chest pain, altered mental status, abdominal pain women, abdominal pain men, vaginal bleeding, weakness, fever, dyspnea, syncope, headache, dizziness, GI bleed, back pain, seizure, CVA, palpatations, mental health, musculoskeletal)? @ -Differential Musculoskeletal Muscular strain, contusion, ligament sprain, fracture, arthritis, bursitis, muscle spasm,. This is not meant to be in all inclusive list EKG interpreted by me (3pts min.). @ -None done X-rays interpreted by me (1pt min.). @ -X-ray right wrist complete: Distal radial fracture with inclination and impaction into radial joint space per radiologist mildly commuted. CT interpreted by me (1pt min.). @ -None done U/S interpreted by me (1pt. min.). @ -None done What testing was considered but not performed or refused? (CT, X-rays, U/S, labs)? Why? @ -None What meds were considered but not given or refused? Why? @ -Analgesics offered and declined Did you discuss the management of the patient with other professionals (professionals i.e. , PA, KINDERGARTEN TEACHER ASSISTANT, lab, RT, psych nurse, social scientist, waiter/waitress formal, teacher, physics technical officer, caseworker)? Give summary @ -No Was smoking cessation discussed for >3mins.? @ -No Was critical care preformed (if so, how long)? @ -No Were there social determinants of health that impacted care today? How? (Homelessness, low income, unemployed, alcoholism, drug addiction, transportation, low edu. Level, literacy, decrease access to med. care, [facility], rehab)? @ -No Was there de-escalation of care discussed even if they declined (Discuss DNR or withdrawal of care, Hospice)? DNR status @ -No What co-morbidities impacted this encounter? (DM, HTN, Smoking, COPD, CAD, Cancer, CVA, ARF, Chemo, Hep., AIDS, mental health diagnosis, sleep apnea, morbid obesity)? @ -None Was patient admitted / discharged? Hospital course, mention meds given and route, prescriptions, significant lab abnormalities, going to OR and other pertinent info. @ -82-year-old female presenting to the emergency room with complaints of pain decreased range of motion and deformity to right wrist after falling onto her wrist approximately 2 hours prior to arrival. No injury to any other location. No head trauma or loss of consciousness. Will obtain x-ray of right wrist obvious deformity noted high probability for fracture with location. No indication for serum studies. Analgesics offered and declined. x-ray demonstrated mildly commuted impacted dorsal angulated distal radial fracture of the right wrist. Spoke with neck PA on-call for orthopedic regarding patient's presentation and imaging. He advised okay for splitting and follow-up in office. Post splinting slight increase in pain patient requesting Tylenol and given with good relief. Patient neurovascularly intact pre-and post splinting. Advised need for close follow-up in the orthopedic office. Questions and concerns answered. Return parameters to the emergency room discussed. Will discharge home in stable condition with splint intact to right wrist fracture advising follow-up with orthopedist and use of [id number] Tylenol or Motrin as needed for pain. Undiagnosed new problem with uncertain prognosis? @ -No Drug Therapy requiring intensive monitoring for toxicity (Heparin, Nitro, Insulin, Cardizem)? @ -No Were any procedures done? @ -yes splint applied see procedures for details. Diagnosis/symptom? @ -Fall Acute, or Chronic, or Acute on Chronic? @ -Acute Uncomplicated (without systemic symptoms) or Complicated (systemic symptoms)? @ -complicated Side effects of treatment? @ -No Exacerbation, Progression, or Severe Exacerbation? @ -No Poses a threat to life or bodily function? How? (Chest pain, [place], [place], pneumonia, PE, COPD, DKA, ARF, appy, cholecystitis, CVA, Diverticulitis, Homicidal, Suicidal, threat to staff... and all critical care pts) @ -No Diagnosis/symptom? @ -right distal radial fracture Acute, or Chronic, or Acute on Chronic? @ -Acute Uncomplicated (without systemic symptoms) or Complicated (systemic symptoms)? @ -Uncomplicated Side effects of treatment? @ -none Exacerbation, Progression, or Severe Exacerbation] @ -no Poses a threat to life or bodily function? @ -no Case discussed with Dr. Cordoba - Radiology Data Radiology results: report reviewed, image reviewed Disposition Clinical Impression: Right wrist fracture Disposition: HOME SELF-CARE Condition: Stable Instructions (If sedation given, give patient instructions): Wrist Fracture in Adults (ED) Additional Instructions: Please utilize tramadol starter pack for pain as needed or may utilize Tylenol for pain as needed [id number]. Continue use of sling as needed and maintain splinting continuously until evaluated by the orthopedist. Please contact orthopedist office tomorrow morning for an appointment. Please return to the Emergency Department if symptoms worsen or any other concerns. Is patient prescribed a controlled substance at d/c from ED?: No Referrals: Tereza Wallis PAC [REFERRING] - 1-2 days Giovany Cabral DO [Doctor of Osteopathic Medicine] - 03/04/23 Time of Disposition: 13:06
--- NOTE | 2023-03-03 12:11 | XR ---
EXAMINATION TYPE: XR wrist complete RT DATE OF EXAM: 03/03/2023 COMPARISON: NONE HISTORY: 82-year-old female fall, wrist injury, pain TECHNIQUE: 4 views FINDINGS: Mildly comminuted, impacted, dorsally angulated distal radial metaphyseal fracture. There a ppears to be intra-articular extension into the distal radial epiphysis at the level of the radial ul jorge l joint. Secondary positive ulnar variance. Metacarpal compartment appears intact. Associated soft tissue swelling and wrist deformity. IMPRESSION: Mildly comminuted, impacted, dorsally angulated distal radial Colles' fracture. Intra-articular exten zahira into the radiolunate joint. Secondary positive ulnar variance.
[2023-03-03] MEDS ORDERED: ACETAMINOPHEN TAB 500 MG TAB PO STA ×2 (12:22→12:31)
[2023-03-03] MEDS ORDERED: traMADol 50 MG STARTER PACK 3 TAB BTL PO STA (13:05)
[2023-03-03 13:20] VITALS: BP 127/82; PULSE 79; RESP 18; TEMP 97.4
== END 2023-03-03 13:20 | disposition home or self-care (01) ==
LOC: EC 10:46
DX: S52.501A Unspecified fracture of the lower end of right radius, initial encounter for closed fracture (principal); I10 Essential (primary) hypertension; Z79.899 Other long term (current) drug therapy; Z87.891 Personal history of nicotine dependence; W01.0XXA Fall on same level from slipping, tripping and stumbling without subsequent striking against object, initial encounter
CPT/HCPCS: 29125; 99283

== ENCOUNTER 2023-03-14 09:10 | Day surgery (SDC) | payer MEDICARE, BC ==
--- NOTE | 2023-03-14 05:57 | P.HPOR ---
History of Present Illness H&P Date: 03/14/23 Subjective: This is a 82 year old female that presents today for initial evaluation regarding a right wrist injury that occurred on 03/03/2023 when she fell from standing onto an outstretched hand while in her tomato garden. She was seen at the emergency department the day of her injury and was placed in a long-arm splint and a sling. She has had pain and swelling since the injury and a visual deformity of the wrist. When asked, she states she still lives a very active lifestyle and lives independently and is right-hand dominant and drives a car and enjoys gardening. Physical Examination: RUE: AIN/PIN/Radial/Ulnar/Median motor intact. Radial/Ulnar/Median SILT. 2+/4 Radial/Ulnar pulses palpated. 5/5 APB, 5/5 FDI. Visual deformity of wrist with bruising and swelling present. Able to make a full fist. Imaging: X-Rays of the right wrist, 3 view taken in office today demonstrate a displaced intra-articular distal radius fracture with 30 of dorsal angulation. 5 mm of radial shortening present. Impression: 1.)Right displaced intra-articular distal radius fracture. Plan: Diagnosis and treatment options were discussed with the patient. We discussed both operative and nonoperative treatment options. We discussed at her age we could consider nonoperative treatment despite the 30 of dorsal angulation. She states that she still lives a very active lifestyle and would like to remain independent and still drives a car and enjoys gardening and wishes to get back to those things as quickly as possible. She would like to go forward with surgery in the form of a right distal radius open reduction internal fixation. Risks and benefits of surgery including bleeding, infection, damage to surrounding tissue, need for further surgery, residual numbness were discussed and the patient wished to go forward with surgery. The patient was agreeable with this plan. She is placed in a wrist splint and is to ice and elevate and work on finger range of motion over the course of the next several days leading up to surgery. 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 Smoking Status: Former smoker - Past Family History Father Family Medical History: Cancer Additional Family Medical History / Comment(s): BONE AND LIVER CANCER Mother Additional Family Medical History / Comment(s): MOTHER AT 25 YEARS OLD, UNKNOWN Medications and Allergies Home Medications Medication Instructions Recorded Confirmed Type Latanoprost [Xalatan 0.005%] 1 drop RIGHT EYE QAM 12/27/16 03/11/23 History Montelukast Sodium [Singulair] 10 mg PO HS 12/27/16 03/11/23 History Multivitamins, Thera [Multivitamin 1 tab PO QAM 12/27/16 03/11/23 History (formulary)] amLODIPine/ATORVASTATIN [Caduet 10 1 tab PO QAM 12/27/16 03/11/23 History mg-20 mg Tablet] Brimonidine Tartrate [Alphagan P 1 drop RIGHT EYE BID 02/14/22 03/11/23 History 0.2% Ophth Soln] Fluorometholone 0.1% Ophth Elyssa 1 drop LEFT EYE HS 02/14/22 03/11/23 History [Fml] Pantoprazole Sodium [Protonix] 40 mg PO QAM 02/14/22 03/11/23 History Timolol 0.5% Ophth Soln [Timoptic 1 drop RIGHT EYE HS 02/14/22 03/11/23 History 0.5% Ophth Soln] Acetaminophen Tab [Tylenol] 325 mg PO Q6HR PRN 03/11/23 03/11/23 History hydroCHLOROthiazide 12.5 mg PO BID 03/11/23 03/11/23 History Allergies Allergy/AdvReac Type Severity Reaction Status Date / Time No Known Allergies Allergy Verified 03/11/23 11:14 Physical Examination Osteopathic Statement: *. No significant issues noted on an osteopathic structural exam other than those noted in the History and Physical/Consult.
[2023-03-14] MEDS ORDERED: fentaNYL (PF) 50 MCG/ML 2 ML AMP IV PRN (09:49)
[2023-03-14] MEDS ORDERED: ONDANSETRON 4 MG/2 ML VIAL IVP ONE (09:49)
[2023-03-14] MEDS ORDERED: LACTATED RINGERS 1,000 ML IV SCH (09:49)
[2023-03-14] MEDS ORDERED: DEXAMETHASONE SOD PHOSPHATE 4 MG/ML 1 ML VIAL IV ONE (10:29)
[2023-03-14] MEDS ORDERED: fentaNYL (PF) 50 MCG/1 ML VIAL IV ONE (10:51)
[2023-03-14 11:12] VITALS: RESP 16
--- NOTE | 2023-03-14 11:37 | P.ANPRN ---
Procedure Note - Anesthesia - Nerve Block Performed Right Axillary Single Date of Procedure: 03/14/23 Procedure Start Time: 10:50 Procedure Stop Time: 11:00 Indication: Acute Post-Operative Pain, Analgesia, Requested by Surgeon Sedation Type: Sedate with meaningful contact maintained Preparation: Sterile Prep Position: Supine Needle Types: Pajunk Needle Gauge: 21 Ultrasound used to visualize needle placement: Yes Ultrasound used to observe medication spread: Yes Injectate: 0.5% Ropivacaine (see comment for volume) Blood Aspirated: No Pain Paresthesia on Injection Noted: No Resistance on Injection: Normal Image Stored and Saved: Yes Events: Uneventful and Well Tolerated (20)
[2023-03-14] MEDS ORDERED: ePHEDrine 50 MG/ML 1 ML VIAL ONE (11:39)
[2023-03-14] MEDS ORDERED: ROPIVACAINE 5 MG/ML 30 ML VIAL ONE (11:39)
[2023-03-14] MEDS ORDERED: PROPOFOL 10 MG/ML 20 ML VIAL IV ONE (11:39)
[2023-03-14] MEDS ORDERED: fentaNYL (PF) 50 MCG/ML 2 ML AMP ONE (11:39)
[2023-03-14] MEDS ORDERED: LIDOCAINE 2% INJ 20 MG/ML (2 ML VIAL) ONE (11:39)
[2023-03-14 12:50] VITALS: TEMP 97
--- NOTE | 2023-03-14 13:00 | P.OP ---
Date of Procedure: 03/14/23 Preoperative Diagnosis: Right distal radius fracture, displaced. Postoperative Diagnosis: Right distal radius fracture, displaced. Procedure(s) Performed: Right distal radius fracture open reduction internal fixation, 3 parts. Implants: Arthrex volar locking plate, short length, narrow width. Anesthesia: ABDULAZIZ, [facility] Surgeon: Giovany Cabral Occupational Health Manager #1: Felipe Bryant Estimated Blood Loss (ml): 0 Pathology: none sent Condition: stable Disposition: PACU Description of Procedure: This is a 82 year old female who sustained a displaced intra-articular distal radius fracture and presents today for open reduction internal fixation of their right distal radius fracture. Risks and benefits of surgery were discussed with the patient including bleeding, damage to surrounding tissue, infection, need for further surgery as well as risks of anesthesia including pulmonary embolism and even and the patient wished to proceed with surgical intervention. Patient wishes to proceed with surgery after lengthy discussion regarding her continued high level of activity she wishes to maintain in regards to operative vs non operative treatment. The patient was seen in the pre-operative area by myself. Consent and H&P were completed and updated. The correct extremity was marked in the pre-operative area by myself and all other questions were answered. Operative Narrative: The patient was brought to the operating room by the department of anesthesia. They remained on the portable stretcher and a rolling hand table was brought to the side of the operative extremity. Pre-operative time out was performed indicating the correct patient, procedure and laterality. All in the room agreed. Pre-operative antibiotics were given prior to skin incision. The patient was then drifted off to sleep by the department of anesthesia. A nonsterile tourniquet was then applied to the operative extremity and the right upper extremity was then prepped and draped in normal sterile fashion. The operative extremity was the exsanguinated with an esmarch bandage and the tourniquet was inflated to 250mmHg. A longitudinal incision centered over the FCR tendon was made with a 15-blade scalpel. Blunt dissection was taken down to the FCR tendon sheath using Bovie cautery for meticulous hemostasis. The FCR sheath was opened with tenotomy scissors. The floor of the FCR sheath was then incised with a 15-blade scalpel and the FPL tendon and muscle belly was swept bluntly in an ulnar direction to reveal the pronator quadratus. Pronator quadratus was sharply incised with a 15-blade scalpel along the radial border of the distal radius, coming across transversely parallel to the joint at the level of the watershed line, radial artery was identified and protected. Periosteal elevator was then used to elevate the pronator quadratus off the distal radius from a radial to ulnar fashion. A [place] elevator was used to lever the distal piece back into place and free up the fractured fragments. A narrow width 3 hole Arthrex titanium volar locking distal radius plate was chosen to fit the patients anatomy best. This was placed on the distal radius under direct visualization and the oblong hole was drilled and filled with a non-locking screw. The fracture was then reduced to the plate distally and a k-wire was placed in the ulnar most k-wire hole in the proximal row. Fluoroscopy was then utilized to confirm correct placement of plate in the radial/ulnar plane and distal k-wire placement was confirmed to be proximal to the subchondral bone on 20 degree elevated lateral view confirming extra-articular screw placement. Buddhist of radial height, inclination and volar tilt was achieved. The distal rows and radial styloid screw holes were then drilled and filled from ulnar to radial with locking screws. Attention was then brought to the proximal shaft screws. Proximal nonlocking and locking shaft screws were drilled, measured, and filled. The wrist joint was the ranged and full smooth flexion/extension with no crepitus appreciated. Final imaging was taken confirming extra-articular placement of distal screws at DRUJ and radiocarpal joint. The wound was then irrigated. Subcutaneous closure was performed with 4-0 monocryl followed by skin closure with 4-0 nylon suture. Sterile dressing consisting of adaptic, 4x4s, and a volar plaster splint was applied. Tourniquet was let down and the hand had immediate perfusion. The patient was then woken by the department of anesthesia and transferred to PACU in stable condition. Felipe AREVALO was present for the case and assisted in major portions of the operation and hardware placement. Giovany Cabral D.O. Orthopedic Hand/Upper Extremity Surgeon
[2023-03-14 14:25] VITALS: BP 120/72; PULSE 75
== END 2023-03-14 14:39 | disposition home or self-care (01) ==
LOC: OR 09:10
PROVIDERS: ATTEND Orthopaedic Surgery Hand Surgery
DX: S52.571A Other intraarticular fracture of lower end of right radius, initial encounter for closed fracture (principal); K21.9 Gastro-esophageal reflux disease without esophagitis; E78.5 Hyperlipidemia, unspecified; I10 Essential (primary) hypertension; Z87.19 Personal history of other diseases of the digestive system; Z87.891 Personal history of nicotine dependence; Z90.710 Acquired absence of both cervix and uterus; Z90.89 Acquired absence of other organs; Z98.51 Tubal ligation status; Z80.0 Family history of malignant neoplasm of digestive organs; Z98.890 Other specified postprocedural states; Z79.899 Other long term (current) drug therapy; W19.XXXA Unspecified fall, initial encounter
CPT/HCPCS: 64415; 25608; C1713; J1100; J0690; J2405; J3010 ×2; J2795; J2704; J2001

== ENCOUNTER → 2023-09-17 | Outpatient (CLI) | payer MEDICARE, BC ==
--- NOTE | 2023-09-17 09:20 | US ---
EXAMINATION TYPE: US abdomen complete DATE OF EXAM: 09/17/2023 COMPARISON: CT 10/17/2019 CLINICAL INDICATION: Female, 82 years old with history of R11.0 NAUSEA x 1 month; HTN; Hx Left Renal cyst TECHNIQUE: Multiple sonographic images of the abdomen are obtained. FINDINGS: EXAM MEASUREMENTS: Liver Length: 11.5 cm Gallbladder Wall: 0.1 cm CBD: 0.1 cm Spleen: 7.7 cm Right Kidney: 11.0 x 3.6 x 4.5 cm Left Kidney: 10.8 x 4.7 x 4.6 cm Pancreas: wnl Liver: wnl Gallbladder: wnl Evidence for sonographic Caceres's sign: No CBD: wnl Spleen: wnl Right Kidney: wnl Left Kidney: Centrally located lower pole parapelvic cyst measuring 2.4 x 2.0 x 2.5 cm. Some interna l echoes could be artifact or debris. Reassess at a 3-6 month follow-up. Upper IVC: wnl Abd Aorta: wnl IMPRESSION: 1. A suspected 2.5 cm lower pole parapelvic cyst of the left kidney. Internal echoes could be artifac t or debris. Recommend 3-6 month follow-up ultrasound to reassess. 2. Otherwise, no specific abnormality seen.
== END | disposition home or self-care (01) ==
LOC: RADUSWWP 08:37
PROVIDERS: ATTEND Family Medicine
DX: R11.0 Nausea (principal); I10 Essential (primary) hypertension; Z87.448 Personal history of other diseases of urinary system
CPT/HCPCS: 76700

== ENCOUNTER → 2023-10-17 | Outpatient (CLI) | payer MEDICARE, BC ==
--- NOTE | 2023-10-17 14:10 | CT ---
EXAMINATION TYPE: CT abdomen pelvis wo con DATE OF EXAM: 10/17/2023 COMPARISON: 10/17/2019 INDICATION: Nausea x 1 month. LT ovarian mass, LT renal cyst. DLP: 890 mGycm, Automated exposure control for dose reduction was used. CONTRAST: 0 mL of Isovue 300. Study performed without Oral Contrast TECHNIQUE: Axial images were obtained from above the diaphragm to the pubic rami in the axial plane a t 5 mm thick sections. Reconstructed images are reviewed on the computer in the coronal plane. FINDINGS: Limited CT sections are obtained the lung bases. There is interval development of punctate nodularit ies within the posterior lateral right lung base. Example image series 3 image 9. Additional peripher al small nodules throughout the right lung base. There is a punctate nodule in the posterior lateral left lung base, series [address] ABDOMEN: Liver: Normal Spleen: Normal Pancreas: Normal Adrenal glands: The adrenal glands are normal. Gallbladder: Not identified Kidneys: No masses are evident. No hydronephrosis is present. No cysts are present. There is a 1.1 cm calcification at the superior pole left kidney. Left renal cyst may contain a 0.5 cm calcificatio n. There is a 0.4 cm calcification left abdomen. Punctate calcifications at the inferior pole right k idney. Aorta: Vascular calcification is within the aorta. Inferior vena cava: Normal. CT PELVIS: No omental caking is evident. Loops of bowel within the abdomen and pelvis are normal. The study is without oral contrast limit ing bowel evaluation. Appendix: Normal as visualized. Urinary bladder: Decompressed with limited evaluation Genitourinary structures: There are several cysts within the left adnexa. This would include 5.7 x 6. 6 cm posterior lateral left pelvis. 4.8 x 5.1 cm anterior left lateral pelvis, and 4.8 cm diameter an terior lateral left mid abdomen. Findings were present previously and appears similar. Osseous structures: No suspicious lytic or sclerotic lesions. IMPRESSION: 1. Persistent left adnexal large cysts. 2. Bilateral renal cysts.
== END | disposition home or self-care (01) ==
LOC: RADCTMAIN 13:08
PROVIDERS: ATTEND Family Medicine
DX: N28.1 Cyst of kidney, acquired (principal); N83.8 Other noninflammatory disorders of ovary, fallopian tube and broad ligament; R11.0 Nausea
CPT/HCPCS: 74176

== ENCOUNTER → 2023-12-23 | Outpatient (CLI) | payer MEDICARE, BC ==
[2023-12-23 12:00] LABS: Basophils # (A) 0.05 X 10*3/uL (0.00-0.10); Basophils % (A) 0.8 %; Eosinophils # (A) 0.21 X 10*3/uL (0.04-0.35); Eosinophils % (A) 3.4 %; HCT 48.2 % (37.2-46.3); HGB 15.5 g/dL (12.0-15.0); Lymphocytes # (A) 0.94 X 10*3/uL (0.90-5.00); Lymphocytes % (A) 15.4 %; MCH 30.1 pg (27.0-32.0); MCHC 32.2 g/dL (32.0-37.0); MCV 93.6 FL (80.0-97.0); Mean Platelet Volume 10.2 FL (9.5-12.2); Monocytes # (A) 0.61 X 10*3/uL (0.20-1.00); NRBC Per 100 WBC 0 X 10*3/uL (0.00-0.01); Neutrophils # (A) 4.29 X 10*3/uL (1.80-7.70); Neutrophils % (A) 70.2 %; Platelet Count 232 X 10*3/uL (140-440); RBC 5.15 X 10*6/uL (4.10-5.20); RDW 15.9 % (11.5-14.5); WBC 6.11 X 10*3/uL (4.50-10.00)
[2023-12-23 12:28] LABS: ALT 18 U/L (8-44); AST 15 U/L (13-35); Albumin 4.1 g/dL (3.8-4.9); Albumin/Globulin Ratio 1.78 Ratio (1.60-3.17); Alkaline Phosphatase 101 U/L (41-126); Amylase 86 U/L (23-121); BUN/Creat Ratio 31.89 Ratio (12.00-20.00); Blood Urea Nitrogen 28.7 mg/dL (9.0-27.0); Calcium 9.6 mg/dL (8.7-10.3); Carbon Dioxide 30.8 mmol/L (21.6-31.8); Chloride 104 mmol/L (96-109); Chol/HDL Ratio 3.43 Ratio; Globulin 2.3 g/dL (1.6-3.3); Glucose 119 mg/dL (70-110); LDL Cholesterol,Calculated 73.5 mg/dL (0.0-131.0); Lipase 40 U/L (14-63); Potassium 3.9 mmol/L (3.5-5.5); Sodium 144 mmol/L (135-145); T4, Free (Free Thyroxine) 1.28 ng/dL (0.80-1.80); Total Bilirubin 0.5 mg/dL (0.3-1.2); Total Protein 6.4 g/dL (6.2-8.2)
[2023-12-23 16:27] LABS: Appearance,Urine Cloudy (Clear); Bilirubin,Urine Negative (Negative); Blood,Urine Small (Negative); Color,Urine Yellow (Yellow); Ketones,Urine Negative (Negative); Nitrite,Urine Positive (Negative); Specific Gravity,Urine 1.013 (1.001-1.030); Urobilinogen,Urine 0.2 E.U./DL
[2023-12-23 16:37] LABS: Bacteria,Urine 4+ (None Seen)
== END | disposition home or self-care (01) ==
LOC: LABWHC1 07:46
PROVIDERS: ATTEND Family Medicine
DX: I10 Essential (primary) hypertension (principal); E78.5 Hyperlipidemia, unspecified; R11.0 Nausea
CPT/HCPCS: 36415; 80053; 80061; 81001; 82150; 82306; 83690; 84439; 84443; 85025

== ENCOUNTER 2024-01-11 11:53 | Emergency (ER) | payer MEDICARE, BC ==
--- NOTE | 2024-01-11 12:11 | ED ---
Fall HPI - General Chief Complaint: Fall Stated Complaint: Fall-Facial injury Time Seen by Provider: 01/11/24 12:01 Source: patient, RN notes reviewed Mode of arrival: ambulatory Limitations: no limitations - History of Present Illness Initial Comments: This is an 83-year-old female who presents to the emergency department for a fall. States that she was in the parking lot when she tripped and fell face forward. She hit her head and injured her right hand in the process. Denies any loss of consciousness, not taking any blood thinners. She did get a large laceration through her bottom lip as well as a small abrasion on the right wrist. Unsure when her last tetanus vaccine was. MD Complaint: fall - Related Data Home Medications Medication Instructions Recorded Confirmed Latanoprost [Xalatan 0.005%] 1 drop RIGHT EYE QAM 12/27/16 03/14/23 Montelukast Sodium [Singulair] 10 mg PO HS 12/27/16 03/14/23 Multivitamins, Thera [Multivitamin 1 tab PO QAM 12/27/16 03/14/23 (formulary)] amLODIPine/ATORVASTATIN [Caduet 10 1 tab PO QAM 12/27/16 03/14/23 mg-20 mg Tablet] Brimonidine Tartrate [Alphagan P 1 drop RIGHT EYE BID 02/14/22 03/14/23 0.2% Ophth Soln] Fluorometholone 0.1% Ophth Elyssa 1 drop LEFT EYE HS 02/14/22 03/14/23 [Fml] Pantoprazole Sodium [Protonix] 40 mg PO QAM 02/14/22 03/14/23 Timolol 0.5% Ophth Soln [Timoptic 1 drop RIGHT EYE HS 02/14/22 03/14/23 0.5% Ophth Soln] Acetaminophen Tab [Tylenol] 325 mg PO Q6HR PRN 03/11/23 03/14/23 hydroCHLOROthiazide 12.5 mg PO BID 03/11/23 03/14/23 Previous Rx's Medication Instructions Recorded HYDROcodone/APAP 5-325MG [[place] 1 tab PO Q6HR PRN 3 Days #18 tab 03/14/23 5-325] Allergies Allergy/AdvReac Type Severity Reaction Status Date / Time No Known Allergies Allergy Verified 01/11/24 12:00 Review of Systems ROS Statement: Those systems with pertinent positive or pertinent negative responses have been documented in the HPI. ROS Other: All systems not noted in ROS Statement are negative. 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 Past Psychological History: No Psychological Hx Reported Smoking Status: Former smoker Past Alcohol Use History: None Reported Past Drug Use History: None Reported - Past Family History Father Family Medical History: Cancer Additional Family Medical History / Comment(s): BONE AND LIVER CANCER Mother Additional Family Medical History / Comment(s): MOTHER AT 25 YEARS OLD, UNKNOWN General Exam Limitations: no limitations General appearance: alert, in no apparent distress Head exam: Present: other (Swelling to the bottom lip with a jagged laceration on the inside of the upper and lower lip as well as underneath the outside of the lower lip) Eye exam: Present: normal appearance, PERRL, EOMI. Absent: scleral icterus, conjunctival injection, periorbital swelling Respiratory exam: Present: normal lung sounds bilaterally. Absent: respiratory distress, wheezes, rales, rhonchi, stridor Cardiovascular Exam: Present: regular rate, normal rhythm, normal heart sounds. Absent: systolic murmur, diastolic murmur, rubs, gallop, clicks Extremities exam: Present: other (Superficial abrasion to the right wrist.) Neurological exam: Present: alert, oriented X3, CN II-XII intact Psychiatric exam: Present: normal affect, normal mood Course Vital Signs 01/11/24 01/11/24 11:57 14:16 Temperature 97.6 F 98.2 F Pulse Rate 68 81 Respiratory 20 18 Rate Blood Pressure 146/77 141/92 O2 Sat by Pulse 99 94 L Oximetry Procedures - Laceration Laceration #1 Consent Obtained: verbal consent Indication: laceration Site: lip Size (cm): 3 Description: linear Depth: simple, single layer Anesthetic Used: lidocaine 1%, with epi Anesthesia Technique: local infiltration Amount (mls): 3 Pre-repair: wound explored, irrigated extensively Type of Sutures: vicryl Size of Sutures: 5-0 Number of Sutures: 3 Technique: simple, interrupted Laceration #2 Consent Obtained: verbal consent Indication: laceration Site: lip Size (cm): 4 Description: stellate Depth: simple, single layer Anesthetic Used: lidocaine 1%, with epi Anesthesia Technique: local infiltration Amount (mls): 3 Pre-repair: wound explored, irrigated extensively Type of Sutures: vicryl Size of Sutures: 5-0 Number of Sutures: 4 Technique: simple, interrupted Laceration #3 Consent Obtained: verbal consent Indication: laceration Site: face Size (cm): 4 Description: linear, flap Depth: simple, single layer Anesthetic Used: lidocaine 1% Anesthesia Technique: local infiltration Amount (mls): 4 Pre-repair: wound explored, irrigated extensively Type of Sutures: nylon Size of Sutures: 5-0 Number of Sutures: 4 Technique: simple, interrupted Medical Decision Making - Medical Decision Making This is an 83 year old female who presents to the emergency department for a fall. Was pt. sent in by a medical professional or institution? @ -No Did you speak to anyone other than the patient for history? @ -No Did you review nursing and triage notes? @ -Yes, and I agree, it is accurate with regards to the patient's symptoms. Were old charts reviewed? @ -No Differential Diagnosis? @ -Differential Diagnosis Head Injury: Contusion, hematoma, intracranial hemorrhage, skull fracture, whiplash, concussion, this is not meant to be an all-inclusive list. EKG interpreted by me (3pts min.)? @ -Not obtained X-rays interpreted by me (1pt min.)? @ -X-ray of the right hand and wrist obtained. My interpretation identifies no acute fractures. CT interpreted by me (1pt min.)? @ -Computed tomography scan of the brain and c-spine obtained. My interpretation identifies no evidence of an acute intracranial hemorrhage, skull fracture, or cervical spine fracture. CT scan of the facial bones obtained. My interpretation identifies no acute facial fractures. U/S interpreted by me (1pt. min.)? @ -Not obtained What testing was considered but not performed? (CT, X-rays, U/S, labs)? Why? @ -None What meds were considered but not given? Why? @ -None Did you discuss the management of the patient with other professionals? @ -No Did you reconcile home meds? @ -No Was smoking cessation discussed for >3mins.? @ -No Was critical care preformed (if so, how long)? @ -No Were there social determinants of health that impacted care today? How? (Homelessness, low income, unemployed, alcoholism, drug addiction, transportation, low edu. Level, literacy, decrease access to med. care, alf, rehab)? @ -No Was there de-escalation of care discussed even if they declined? (Discuss DNR or withdrawal of care, Hospice)? @ -No What co-morbidities impacted this encounter? (DM, HTN, Smoking, COPD, CAD, Cancer, CVA, Hep., AIDS, mental health diagnosis, sleep apnea, morbid obesity)? @ -Eye disorder Was patient admitted / discharged? @ -Discharged. CT scan of the brain and C-spine obtained revealing no evidence of an acute intracranial hemorrhage. She has an abnormal opacity in the posterior half of the right globe. They advised further ophthalmologic assessment if there is no known diagnosis. Patient states that she is well aware of this and has a known eye disorder, and she was blind in the right eye at . She also did not hit the top part of her face when she fell, and the impact was localized around the mouth and jaw. X-ray of the right hand and wrist demonstrate soft tissue swelling without other acute process. The laceration in the upper lip, lower lip, and underneath the bottom lip were all repaired with sutures. Absorbable sutures were used for the lacerations inside of the mouth and nonabsorbable for the laceration on the outside of the bottom lip. Tetanus vaccine was updated. Antibiotic ointment was applied to the right wrist abrasion and it was bandaged. Advised Tylenol as needed for pain relief and returning to the emergency department in 7 to 10 days for suture removal. Undiagnosed new problem with uncertain prognosis? @ -None Drug Therapy requiring intensive monitoring for toxicity (Heparin, Nitro, Insulin, Cardizem)? @ -None Were any procedures done? @ -Laceration repair with sutures Diagnosis/symptom? @ -Fall, laceration, abrasion Acute, or Chronic, or Acute on Chronic? @ -Acute Uncomplicated (without systemic symptoms) or Complicated (systemic symptoms)? @ -Uncomplicated Side effects of treatment? @ -None Exacerbation, Progression, or Severe Exacerbation] @ -Not applicable Poses a threat to life or bodily function? @ -No Return precautions reviewed in depth, the patient is instructed to return to the emergency department with any new, worsening, or concerning symptoms. Patient verbalized understanding. This case was discussed in detail with the attending ED physician, Dr. Gongora. Presentation, findings, and treatment plan discussed in detail as well. - Radiology Data Radiology results: report reviewed, image reviewed Disposition Clinical Impression: Fall, Laceration, Abrasion Disposition: HOME SELF-CARE Instructions (If sedation given, give patient instructions): Care For Your Stitches (ED), Fall Prevention for Older Adults (ED), Care For Your Absorbable Stitches (ED) Additional Instructions: Return to the emergency department with any new, worsening, or concerning symptoms and in 7-10 days for removal of the stitches under your bottom lip. Take Tylenol as needed for pain relief. You can continue to apply antibiotic ointment to the wrist wound and bandage it as needed. Follow up with your primary care provider in 1-2 days. Is patient prescribed a controlled substance at d/c from ED?: No Referrals: Saúl Randolph MD [Primary Care Provider] - 1-2 days Time of Disposition: 14:13
[2024-01-11] MEDS: DIPH,PERTUS(ACELL)TETVAC-LF 0.5 ML VIAL IM ONE (13:14)
[2024-01-11] MEDS: MUPIROCIN 2% OINT 22 GM TUBE TOPICAL STA (13:14)
--- NOTE | 2024-01-11 13:14 | CT ---
EXAMINATION TYPE: CT brain cspine wo con, CT facial bones wo con DATE OF EXAM: 01/11/2024 COMPARISON: None HISTORY: 83-year-old female fall, no LOC, lower lip swelling CT DLP: 1069.1 mGycm Automated exposure control for dose reduction was used. Technique: Examination of the head was done in axial plane without intravenous contrast. Coronal and sagittal reconstructions performed. CT of the cervical spine was obtained in axial plane without intravenous injection of contrast mater ial. Coronal and sagittal reformatted images were obtained from the axial views for evaluation of f ractures, spinal alignment and canal. CT of the facial bones with coronal and sagittal reconstructions. FINDINGS: Head: There is no evidence of acute intracranial hemorrhage, acute ischemic changes, mass, mass-effect, or extra-axial fluid collection. There is no effacement of cerebral sulci or basal subarachnoid cister ns. There is no hydrocephalus. There is no midline shift. Henao-white matter distinction is preserv ed. Some cerumen in the external auditory canals. Mastoid air cells are pneumatized. There is abnormal opacity within the posterior half of the right globe. If no known diagnosis, furthe r ophthalmologic assessment is advised. Facial bones: Mild mucosal thickening right ethmoid air cells. Remainder of the paranasal sinuses appear clear. Sli ght leftward nasal septal bowing. No air-fluid levels. The mandible, TMJ's, pterygoid plates, zygomatic arches and nasal bones appear intact. Orbits appear intact. Abnormal density within the posterior right globe as mentioned above. There is mild soft tissue swelling of the lower lip. Cervical spine: No great cervical junction are noted, predental space widening, or prevertebral soft tissue swelling. Degenerative change of the C1 dens articulation. Moderate degenerative disc disease C3-C7 levels with disc osteophyte complexes mildly narrowing the s omar canal at various levels. Scattered facet and uncovertebral joint arthropathy is also present. Degenerative grade 1 retrolisthesis C4-C5, C5-C6, and C6-C7. Remaining alignment is maintained. No acute fracture of the cervical spine. Variable mild to moderate neuroforaminal stenoses throughout. Biapical pleural parenchymal scarring and mild emphysematous change. . Sagittal and coronal reformatted images confirm above findings. COMBINED IMPRESSION: 1. Head: No acute intracranial abnormality seen. 2. Facial bones: Abnormal density within the posterior half of the right globe. Unclear if this repre sents hemorrhage, intraocular mass, or other abnormality. Recommend assessing the patient's vision. I f no known diagnosis, recommend ophthalmologic evaluation. Otherwise, no acute facial bone fracture s een. 3. Cervical spine: No acute fracture of the cervical spine. Mild to moderate multilevel spondylotic c hange. Degenerative grade 1 retrolisthesis C4-C7 levels.
[2024-01-11] MEDS: LIDOCAINE 1%-EPI 1:100,000 20 ML VIAL SQ STA (13:17)
--- NOTE | 2024-01-11 13:20 | XR ---
EXAMINATION TYPE: XR wrist complete 4 views RT, XR hand complete 3 views RT DATE OF EXAM: 01/11/2024 COMPARISON: NONE HISTORY: 83-year-old female right hand and wrist pain after fall FINDINGS: Wrist: Soft tissue swelling about the wrist. There is previous volar plate and screw fixation of the distal radius. Radiocarpal and distal radial ulnar joint as well as the midcarpal compartment appear intact. Diffuse osteopenia. Blunted ulnar styloid process likely sequela of old injury. Hand: Diffuse osteopenia. Mild degenerative change first CMC and first MCP joints. Additional rjjk-ef-hlaom ate degenerative spurring at the DIP joints. No acute fracture seen. IMPRESSION (wrist and hand): 1. Previous volar plate and screw fixation distal radius. Blunted ulnar styloid process likely reflec ts sequela of old injury. 2. Some soft tissue swelling about the wrist. No acute osseous abnormality seen. 3. Diffuse osteopenia. Some scattered osteoarthritic change at the base of the thumb and in the DIP j oints.
[2024-01-11 14:28] VITALS: BP 141/92; PULSE 81; RESP 18; TEMP 98.2
== END 2024-01-11 14:20 | disposition home or self-care (01) ==
LOC: EC 11:53
DX: S01.511A Laceration without foreign body of lip, initial encounter (principal); S60.811A Abrasion of right wrist, initial encounter; Z87.891 Personal history of nicotine dependence; W01.0XXA Fall on same level from slipping, tripping and stumbling without subsequent striking against object, initial encounter; Y92.481 Parking lot as the place of occurrence of the external cause; Z23 Encounter for immunization
CPT/HCPCS: 12015; 70450; 70486; 72125; 90471; 90715; 99284

== ENCOUNTER 2024-08-17 10:56 | Inpatient (IN) | payer MEDICARE, BC ==
[2024-08-17] MEDS: SODIUM CHLORIDE 0.9% 1,000 ML IV STA ×2 (12:10)
[2024-08-17 12:18] LABS: Basophils % (A) 0 %; Eosinophils # (A) 0.1 k/uL (0-0.7); Eosinophils % (A) 1 %; HCT 49.4 % (34.0-46.0); HGB 16.1 gm/dL (11.4-16.0); Lymphocytes # (A) 0.5 k/uL (1.0-4.8); Lymphocytes % (A) 4 %; MCHC 32.6 g/dL (31.0-37.0); MCV 95.1 fL (80.0-100.0); Mean Platelet Volume 7.6; Monocytes # (A) 0.7 k/uL (0-1.0); Monocytes % (A) 6 %; Neutrophils # (A) 10.3 k/uL (1.3-7.7); Neutrophils % (A) 87 %; Platelet Count 227 k/uL (150-450); RDW 13.7 % (11.5-15.5); WBC 11.7 k/uL (3.8-10.6)
[2024-08-17 12:29] LABS: INR 1.1 (<1.2); Partial Thromboplastin Time 30.2 sec (22.0-30.0); Prothrombin Time 11.5 sec (10.0-12.5)
--- NOTE | 2024-08-17 12:31 | XR ---
EXAMINATION TYPE: XR chest 2V DATE OF EXAM: 08/17/2024 12:21 PM COMPARISON: Chest radiographs from 02/14/2022 TECHNIQUE: XR chest 2V Frontal and lateral views of the chest. CLINICAL INDICATION:Female, 83 years old with history of difficulty breathing; FINDINGS: Lungs/Pleura: No pleural effusion pneumothorax. Chronic elevation of the left hemidiaphragm. Hyperinf lation. Bibasilar patchy opacities which is slightly increased from prior exam. Pulmonary vascularity: Unremarkable. Heart/mediastinum: Cardiomediastinal silhouette is unremarkable. Musculoskeletal: No acute osseous pathology. IMPRESSION: COPD changes with increased bibasilar patchy airspace opacities prior radiograph. Findings may relate to interstitial fibrosis with superimposed infectious process is not excluded. [facility], , 08/17/2024 12:28 PM
[2024-08-17 12:36] LABS: ALT 18 U/L (4-34); AST 18 U/L (14-36); African American GFR (CKD) 44 (>60 ml/min/1.73 sqM); Alkaline Phosphatase 136 U/L (38-126); Anion Gap 12 mmol/L; Blood Urea Nitrogen 45 mg/dL (7-17); Calcium 9.4 mg/dL (8.4-10.2); Carbon Dioxide 28 mmol/L (22-30); Chloride 100 mmol/L (98-107); Glucose 135 mg/dL (74-99); Magnesium 2.6 mg/dL (1.6-2.3); Non-African American GFR(CKD) 38 (>60 ml/min/1.73 sqM); Potassium 3.6 mmol/L (3.5-5.1); Sodium 140 mmol/L (137-145); Total Bilirubin 1.7 mg/dL (0.2-1.3); Total Protein 6.8 g/dL (6.3-8.2)
[2024-08-17] MEDS ORDERED: IPRATROPIUM-ALBUTEROL 3 ML NEB INHALATION PRN (13:18)
[2024-08-17] MEDS ORDERED: PNEUMONIA PROTOCOL UTILIZED 1 EACH MISC PO PRN (13:18)
[2024-08-17] MEDS ORDERED: ACETAMINOPHEN TAB 325 MG TAB PO PRN (13:59)
[2024-08-17] MEDS ORDERED: NALOXONE 0.4 MG/ML 1 ML VIAL IV PRN (13:59)
--- NOTE | 2024-08-17 14:03 | ED ---
General Adult HPI - General Chief complaint: Shortness of Breath Stated complaint: OPAL Time Seen by Provider: 08/17/24 11:40 Source: patient, RN notes reviewed, old records reviewed Mode of arrival: ambulatory Limitations: no limitations - History of Present Illness Initial comments: Patient is an 83-year-old female with past medical history remarkable for suspected COPD, that she declines but states baseline she has a history of pulmonary fibrosis as well as chronic hypoxia. History also includes hypertension hyperlipidemia. Presents with upper respiratory symptoms. Productive cough of colored sputum, as well as low oxygen. Was diagnosed with pneumonia by her PCP and sent here for further evaluation. She denies any chest pain. Denies nausea or vomiting or diarrhea. Has no other acute complaints at this time. Presents for further evaluation at this time. - Related Data Home Medications Medication Instructions Recorded Confirmed Latanoprost [Xalatan 0.005%] 1 drop BOTH EYES HS 12/27/16 08/17/24 Brimonidine Tartrate [Alphagan P 1 drop RIGHT EYE BID 02/14/22 08/17/24 0.2% Ophth Soln] Timolol 0.5% Ophth Soln [Timoptic 1 drop BOTH EYES HS 02/14/22 08/17/24 0.5% Ophth Soln] Atorvastatin [Lipitor] 20 mg PO DAILY 08/17/24 08/17/24 Magnesium Oxide [Mag-Ox] 400 mg PO HS 08/17/24 08/17/24 amLODIPine [Norvasc] 10 mg PO DAILY 08/17/24 08/17/24 hydroCHLOROthiazide [Hydrodiuril] 12.5 mg PO DAILY 08/17/24 08/17/24 Allergies Allergy/AdvReac Type Severity Reaction Status Date / Time No Known Allergies Allergy Verified 08/17/24 13:10 Review of Systems ROS Statement: Those systems with pertinent positive or pertinent negative responses have been documented in the HPI. Review of Systems: CONST: Denies fever EYES: Denies blurry vision ENT: Endorses nasal congestion C/V: Denies Chest pain RESP: Endorses shortness of breath, cough GI: Denies abdominal pain : Denies dysuria SKIN: Denies rash. MSK: Denies joint pain. NEURO: Denies headache ROS Other: All systems not noted in ROS Statement are negative. 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 Past Psychological History: No Psychological Hx Reported Smoking Status: Never smoker Past Alcohol Use History: Occasional Past Drug Use History: None Reported - Past Family History Father Family Medical History: Cancer Additional Family Medical History / Comment(s): BONE AND LIVER CANCER Mother Additional Family Medical History / Comment(s): MOTHER AT 25 YEARS OLD, UNKNOWN General Exam - General Exam Comments Initial Comments: General: Appears in mild distress HEAD: Normal with no signs of head trauma. EYES: EOMI ENT: Hearing grossly intact, normal oropharynx. RESPIRATORY: Bilateral end expiratory wheezing with coarse breath sounds. Hypoxic. No significant increased work of breathing. C/V: Regular rate and rhythm. S1 and S2 auscultated, no edema, peripheral pulses 2+ and intact throughout ABD: Abd is soft, nontender, nondistended EXT: Normal range of motion, no obvious deformity SKIN: No rashes or lesions observed on exposed skin. NEURO: Alert and oriented x 4. Limitations: no limitations Course Vital Signs 08/17/24 08/17/24 08/17/24 11:07 12:11 14:42 Temperature 98.2 F Pulse Rate 46 L 71 Respiratory 18 20 16 Rate Blood Pressure 97/57 120/56 O2 Sat by Pulse 88 L 92 L Oximetry Medical Decision Making - Medical Decision Making Was pt. sent in by a medical professional or institution (, PA, MANAGER GENERAL, urgent care, hospital, or skilled nursing...) When possible be specific @ -Sent by PCP for pneumonia and hypoxia Did you speak to anyone other than the patient for history (EMS, parent, family, police, friend...)? What history was obtained from this source @ -No Did you review nursing and triage notes (agree or disagree)? Why? @ -I reviewed and agree with nursing and triage notes Were old charts reviewed (outside hosp., previous admission, EMS record, old EKG, old radiological studies, urgent care reports/EKG's, skilled nursing records)? Report findings @ -Old charts reviewed including old EKG which showed no acute dynamic changes today. EKG reviewed from January 2022. Differential Diagnosis (chest pain, altered mental status, abdominal pain women, abdominal pain men, vaginal bleeding, weakness, fever, dyspnea, syncope, headache, dizziness, GI bleed, back pain, seizure, CVA, palpatations, mental health, musculoskeletal)? @ -Pneumonia, flu, RSV. This list is not all inclusive EKG interpreted by me (3pts min.). @ -As above X-rays interpreted by me (1pt min.). @ -Chest x-ray reveals pulmonary fibrotic changes as well as findings concerning for bibasilar infectious process. This fits in the patient's current clinical presentation. Findings also consistent with COPD. CT interpreted by me (1pt min.). @ -None done U/S interpreted by me (1pt. min.). @ -None done What testing was considered but not performed or refused? (CT, X-rays, U/S, labs)? Why? @ -None What meds were considered but not given or refused? Why? @ -None Did you discuss the management of the patient with other professionals (professionals i.e. , PA, MANAGER GENERAL, lab, RT, psych nurse, social sciences lecturer, web project manager, teacher, toxics program officer, case specialist)? Give summary @ -Discussed with the admitting provider, Dr. Buck who accepted the admission. Was smoking cessation discussed for >3mins.? @ -No Was critical care preformed (if so, how long)? @ -Yes, 30-minute Were there social determinants of health that impacted care today? How? (Homelessness, low income, unemployed, alcoholism, drug addiction, transportation, low edu. Level, literacy, decrease access to med. care, snf, rehab)? @ -No Was there de-escalation of care discussed even if they declined (Discuss DNR or withdrawal of care, Hospice)? DNR status @ -No What co-morbidities impacted this encounter? (DM, HTN, Smoking, COPD, CAD, Cancer, CVA, ARF, Chemo, Hep., AIDS, mental health diagnosis, sleep apnea, morbid obesity)? @ -None Was patient admitted / discharged? Hospital course, mention meds given and route, prescriptions, significant lab abnormalities, going to OR and other pertinent info. @ -Patient presents emergency department complaining of pneumonia as well as hypoxia. Patient is hypoxic to 88% on room air. Placed on 2 L nasal cannula. She is given breathing treatment, IV steroids. Will obtain infectious workup. Patient agreement this plan. Vitals are within acceptable limits on 2 L nasal cannula. Chest x-ray shows pneumonia as well as what appears to be interstitial fibrosis. EKG unremarkable. Labs remarkable for mild leukocytosis of 11.7. Negative viral swabs. I updated the patient. Still requiring oxygen. She will be admitted on IV antibiotics as well as breathing treatments and steroids. Patient agreement this plan. Discussed the case with the admitting provider, Dr. Buck who accepted the admission. Undiagnosed new problem with uncertain prognosis? @ -No Drug Therapy requiring intensive monitoring for toxicity (Heparin, Nitro, Insulin, Cardizem)? @ -No Were any procedures done? @ -No Diagnosis/symptom? @ -Pneumonia, suspected COPD, hypoxic respiratory failure Acute, or Chronic, or Acute on Chronic? @ -Acute Uncomplicated (without systemic symptoms) or Complicated (systemic symptoms)? @ -Complicated Side effects of treatment? @ -No Exacerbation, Progression, or Severe Exacerbation? @ -No Poses a threat to life or bodily function? How? (Chest pain, [place], AL, pneumonia, PE, COPD, DKA, ARF, appy, cholecystitis, CVA, Diverticulitis, Homicidal, Suicidal, threat to staff... and all critical care pts) @ -Yes - Lab Data Result diagrams: 08/17/24 12:09 08/17/24 12:09 Lab Results 08/17/24 08/17/24 08/17/24 Range/Units 12:09 12:09 12:09 WBC 11.7 H (3.8-10.6) k/uL RBC 5.20 (3.80-5.40) m/uL Hgb 16.1 H (11.4-16.0) gm/dL Hct 49.4 H (34.0-46.0) % MCV 95.1 (80.0-100.0) fL MCH 31.0 (25.0-35.0) pg MCHC 32.6 (31.0-37.0) g/dL RDW 13.7 (11.5-15.5) % Plt Count 227 (150-450) k/uL MPV 7.6 Neutrophils % 87 % Lymphocytes % 4 % Monocytes % 6 % Eosinophils % 1 % Basophils % 0 % Neutrophils # 10.3 H (1.3-7.7) k/uL Lymphocytes # 0.5 L (1.0-4.8) k/uL Monocytes # 0.7 (0-1.0) k/uL Eosinophils # 0.1 (0-0.7) k/uL Basophils # 0.0 (0-0.2) k/uL PT 11.5 (10.0-12.5) sec INR 1.1 (<1.2) APTT 30.2 H (22.0-30.0) sec Sodium 140 (137-145) mmol/L Potassium 3.6 (3.5-5.1) mmol/L Chloride 100 (98-107) mmol/L Carbon Dioxide 28 (22-30) mmol/L Anion Gap 12 mmol/L BUN 45 H (7-17) mg/dL Creatinine 1.30 H (0.52-1.04) mg/dL Est GFR (CKD-EPI)AfAm 44 (>60 ml/min/1.73 sqM) Est GFR (CKD-EPI)NonAf 38 (>60 ml/min/1.73 sqM) Glucose 135 H (74-99) mg/dL Plasma Lactic Acid Peterson (0.7-2.0) mmol/L Calcium 9.4 (8.4-10.2) mg/dL Magnesium 2.6 H (1.6-2.3) mg/dL Total Bilirubin 1.7 H (0.2-1.3) mg/dL AST 18 (14-36) U/L ALT 18 (4-34) U/L Alkaline Phosphatase 136 H (38-126) U/L Total Protein 6.8 (6.3-8.2) g/dL Albumin 4.0 (3.5-5.0) g/dL Influenza Type A (PCR) (Not Detectd) Influenza Type B (PCR) (Not Detectd) RSV (PCR) (Not Detectd) SARS-CoV-2 (PCR) (Not Detectd) 08/17/24 08/17/24 Range/Units 12:09 12:09 WBC (3.8-10.6) k/uL RBC (3.80-5.40) m/uL Hgb (11.4-16.0) gm/dL Hct (34.0-46.0) % MCV (80.0-100.0) fL MCH (25.0-35.0) pg MCHC (31.0-37.0) g/dL RDW (11.5-15.5) % Plt Count (150-450) k/uL MPV Neutrophils % % Lymphocytes % % Monocytes % % Eosinophils % % Basophils % % Neutrophils # (1.3-7.7) k/uL Lymphocytes # (1.0-4.8) k/uL Monocytes # (0-1.0) k/uL Eosinophils # (0-0.7) k/uL Basophils # (0-0.2) k/uL PT (10.0-12.5) sec INR (<1.2) APTT (22.0-30.0) sec Sodium (137-145) mmol/L Potassium (3.5-5.1) mmol/L Chloride (98-107) mmol/L Carbon Dioxide (22-30) mmol/L Anion Gap mmol/L BUN (7-17) mg/dL Creatinine (0.52-1.04) mg/dL Est GFR (CKD-EPI)AfAm (>60 ml/min/1.73 sqM) Est GFR (CKD-EPI)NonAf (>60 ml/min/1.73 sqM) Glucose (74-99) mg/dL Plasma Lactic Acid Peterson 1.8 (0.7-2.0) mmol/L Calcium (8.4-10.2) mg/dL Magnesium (1.6-2.3) mg/dL Total Bilirubin (0.2-1.3) mg/dL AST (14-36) U/L ALT (4-34) U/L Alkaline Phosphatase (38-126) U/L Total Protein (6.3-8.2) g/dL Albumin (3.5-5.0) g/dL Influenza Type A (PCR) Not Detected (Not Detectd) Influenza Type B (PCR) Not Detected (Not Detectd) RSV (PCR) Not Detected (Not Detectd) SARS-CoV-2 (PCR) Not Detected (Not Detectd) - EKG Data -: EKG Interpreted by Me EKG Comments: 12-lead Electrocardiogram Interpretation Note EKG was reviewed and interpreted by myself. 12-lead ECG performed at 1202 is interpreted by me as revealing normal sinus rhythm at a rate of 81 beats per minute. [place] is normal. LA interval is 157 ms, QRS duration is 98 ms, QTc is 4 19 ms. PVCs present.. There were no ST or T wave abnormalities to suggest myocardial ischemia or injury. R wave progression across the precordium was satisfactory. By my interpretation this EKG is non-diagnostic for acute ischemia. Critical Care Time Critical Care Time: Yes Total Critical Care Time: 30 Disposition Clinical Impression: Hypoxic respiratory failure, COPD (chronic obstructive pulmonary disease), Pneumonia Disposition: ADMITTED IP TO THIS HOSP Condition: Stable Time of Disposition: 13:30
[2024-08-17] MEDS: methylPREDNISolone SOD SUCCI 40 MG/ML 1 ML VIAL IV SCH (14:06)
[2024-08-17] MEDS: AZITHROMYCIN 500 MG in SODIUM CHLORIDE 0.9% 250 ML IVPB STA (14:06)
[2024-08-17] MEDS ORDERED: ONDANSETRON 4 MG/2 ML VIAL IVP PRN (15:20)
[2024-08-17] MEDS: IPRATROPIUM-ALBUTEROL 3 ML NEB INHALATION SCH (15:36)
--- NOTE | 2024-08-17 16:36 | P.HPIM ---
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 She presented to the emergency department with a chief complaint of shortness of breath and productive cough. She initially presented to her PCPs office and was informed that she had pneumonia and needed to go to the hospital for admission. Patient denies fevers, chills, headache, lightheadedness, dizziness, diaphoresis, chest pain, palpitations, nausea, vomiting, or experiencing any numbness/tingling/weakness/swelling in her extremities. On arrival to our facility, patient underwent evaluation in the emergency department. Vital signs upon arrival show blood pressure 97/57, heart rate 46, respiratory rate 18, temp 98.2 F, and SpO2 of 88% on room air. Patient requiring 4 L O2 to increase SpO2 to 92%. EKG was completed showing sinus mechanism with T wave inversion in aVL and frequent PVCs in a pattern of trigeminy. Chest x-ray completed showing COPD with increased patchy opacities and chronic elevation of left hemidiaphragm. Labs completed and reviewed. CBC showing leukocytosis with WBC count of 11.7 and elevated hemoglobin of 16.1. Coagulation profile showing a low PTT of 30.2. BMP showing acute kidney injury with BUN of 45, creatinine of 1.30, GFR of 38 with baseline creatinine of 0.9. Blood glucose was 135. Lactic acid was 1.8. Magnesium 2.6. Liver profile showing hyperbilirubinemia with total bili of 1.7 and elevated alkaline phosphatase of 136. Influenza A, influenza B, RSV, and COVID PCR were negative. Patient was admitted under our services with consultation to pulmonology. Review of systems: Pertinent positives and negatives as discussed in HPI, a complete review of systems was performed and all other systems are negative. Physical exam: Vital signs reviewed and stable. General: Nontoxic, no distress and appears stated age. Derm: Skin warm and dry, normal coloration for ethnicity. Head: Atraumatic, normocephalic and symmetric. Eyes: EOM's intact, no lid lag, and anicteric sclera Mouth: no lip lesions, mucus membranes moist Cardiovascular: regular rate and rhythm with normal S1S2, systolic murmur, positive posterior tibial pulses bilaterally, and cap refill < 2 seconds. Lungs: Respirations even, regular, and unlabored on room air. Lungs diminished with diffuse expiratory wheezes.. Abdominal: soft, nontender to palpation, no guarding, no appreciable organomegaly Ext: ROM intact. No gross muscle atrophy, no edema, no contractures Neuro: Speech clear, face symmetrical and CN II-XII grossly intact with no noted focal neuro deficits Psych: Alert and oriented to person, place, time, and situation. Appropriate and pleasant affect. Assessment and Plan of Care: Acute respiratory failure with hypoxia Pulmonary fibrosis Concerns of community-acquired pneumonia chronic lung condition -Oxygenation to be administered and titrated as needed to maintain SPO2 equal to or greater than 92% -Telemetry monitoring. -Monitor pulse-oximetry -Duonebs scheduled 4 times daily and as needed for SOB and/or wheezing -Incentive Spirometry -Steroids: Solu-Medrol 40 mg IV every 12 hours -Antibiotics: Rocephin 2 g IVPB and azithromycin 500 mg daily. -Follow-up on sputum culture, Legionella antigen, and blood culture Acute kidney injury -Likely secondary to dehydration. Patient to continue gentle IV fluid hydration with 0.9% normal saline at 75 cc/h. Nephrotoxic medications including hydr ochlorothiazide held pending improvement of renal function. -Continued close monitoring with repeat a.m. labs. Hypertension -Monitor vital signs and continue daily medication regimen with amlodipine 10 mg nightly. Hydrochlorothiazide held secondary to acute kidney injury. 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 Data and imaging reviewed: As stated above in HPI The patient is admitted with an anticipated greater than 2 midnight stay for evaluation of acute respiratory failure with hypoxia suspect community-acquired pneumonia in patient with chronic lung condition of pulmonary fibrosis CODE STATUS: Full code DVT prophylaxis: Heparin Anticipated discharge date: Pending clinical course Anticipated discharge place: Pending clinical course, likely home Patient was seen independently by Nurse Practitioner. This document was prepared using [employer] dictation software. Please allow for errors in scientologist while rare they do occur. Rory Shultz NP rendered care for this patient independently, reviewed the findings and plan as documented in the note above and agree with plan. I did not physically speak with or examine the patient on this date. 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 Past Psychological History: No Psychological Hx Reported Smoking Status: Never smoker Past Alcohol Use History: Occasional Past Drug Use History: None Reported - Past Family History Father Family Medical History: Cancer Additional Family Medical History / Comment(s): BONE AND LIVER CANCER Mother Additional Family Medical History / Comment(s): MOTHER AT 25 YEARS OLD, UNKNOWN Medications and Allergies Home Medications Medication Instructions Recorded Confirmed Type Latanoprost [Xalatan 0.005%] 1 drop BOTH EYES HS 12/27/16 08/17/24 History Brimonidine Tartrate [Alphagan P 1 drop RIGHT EYE BID 02/14/22 08/17/24 History 0.2% Ophth Soln] Timolol 0.5% Ophth Soln [Timoptic 1 drop BOTH EYES HS 02/14/22 08/17/24 History 0.5% Ophth Soln] Atorvastatin [Lipitor] 20 mg PO DAILY 08/17/24 08/17/24 History Magnesium Oxide [Mag-Ox] 400 mg PO HS 08/17/24 08/17/24 History amLODIPine [Norvasc] 10 mg PO DAILY 08/17/24 08/17/24 History hydroCHLOROthiazide [Hydrodiuril] 12.5 mg PO DAILY 08/17/24 08/17/24 History Allergies Allergy/AdvReac Type Severity Reaction Status Date / Time No Known Allergies Allergy Verified 08/17/24 13:10 Physical Exam Vitals: Vital Signs Temp Pulse Resp BP Pulse Ox 08/17/24 14:42 71 16 120/56 92 L 08/17/24 12:11 20 08/17/24 11:07 98.2 F 46 L 18 97/57 88 L Intake and Output 11/25/24 11/25/24 11/25/24 06:59 14:59 22:59 Other: Weight 70.307 kg Results CBC & Chem 7: 08/17/24 12:09 08/17/24 12:09 Labs: Abnormal Lab Results - Last 24 Hours (Table) 08/17/24 08/17/24 08/17/24 Range/Units 12:09 12:09 12:09 WBC 11.7 H (3.8-10.6) k/uL Hgb 16.1 H (11.4-16.0) gm/dL Hct 49.4 H (34.0-46.0) % Neutrophils # 10.3 H (1.3-7.7) k/uL Lymphocytes # 0.5 L (1.0-4.8) k/uL APTT 30.2 H (22.0-30.0) sec BUN 45 H (7-17) mg/dL Creatinine 1.30 H (0.52-1.04) mg/dL Glucose 135 H (74-99) mg/dL Magnesium 2.6 H (1.6-2.3) mg/dL Total Bilirubin 1.7 H (0.2-1.3) mg/dL Alkaline Phosphatase 136 H (38-126) U/L
--- NOTE | 2024-08-17 20:15 | P.CNPUL ---
History of Present Illness Consult date: 08/17/24 Reason for consult: cough History of present illness: This is a 83-year-old female patient coming into the hospital because of a cough and congestion. The patient is producing mucus and her symptoms have been going on for the past 3 to 4 days. No reported aspiration. 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 Reviewed the chest x-ray and the patient is a chronic eventration of the left hemidiaphragm. There is also evidence of patchy airspace disease and some cardiomegaly. No reported aspiration. No altered mentation. No nausea vomiting or diarrhea. The viral screen has been negative and the blood work shows a BUN of 45 with a creatinine of 1.3 and a sodium levels at 140. White cell count is 11.7 with a hemoglobin 16.1 and a platelet count of 227. The patient is currently on oxygen at 2 L/min nasal cannula. Afebrile hemodynamically stable. Started on Rocephin and Zithromax. Started on IV Solu-Medrol. Started on IV fluids normal saline at 75 cc an hour. Review of Systems Constitutional: Reports fatigue Eyes: denies as per HPI, denies blurred vision, denies bulging eye, denies decreased vision, denies diplopia, denies discharge, denies dry eye, denies irritation, denies itching, denies pain, denies photophobia, denies loss of peripheral vision, denies loss of vision, denies tunnel vision/blind spots Ears: deny: decreased hearing, ear discharge, earache, tinnitus Ears, nose, mouth and throat: Reports as per HPI Breasts: absent: as per HPI, change in shape, gynecomastia, masses, nipple discharge, pain, skin changes, swelling Cardiovascular: Reports as per HPI Respiratory: Reports congestion, Reports cough, Reports cough with sputum Gastrointestinal: Reports as per HPI Genitourinary: Reports as per HPI Menstruation: Reports as per HPI Musculoskeletal: Reports as per HPI Musculoskeletal: absent: ankle pain, ankle stiffness, ankle swelling, as per HPI, elbow pain, elbow stiffness, elbow swelling, foot pain, foot stiffness, foot swelling, hand pain, hand stiffness, hand swelling, hip pain, hip stiffness, hip swelling, knee pain, knee stiffness, knee swelling, shoulder pain, shoulder stiffness, shoulder swelling, wrist pain, wrist stiffness, wrist swelling Integumentary: Reports as per HPI Neurological: Reports as per HPI (b), Reports gait dysfunction (rafa Scott's palsy) Endocrine: Reports as per HPI Hematologic/Lymphatic: Reports as per HPI Allergic/Immunologic: Reports as per HPI Past Medical History Past Medical History: Eye Disorder, GERD/Reflux, GI Bleed, Hyperlipidemia, Hypertension Additional Past Medical History / Comment(s): 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 Past Psychological History: No Psychological Hx Reported Smoking Status: Never smoker Past Alcohol Use History: Occasional Past Drug Use History: None Reported - Past Family History Father Family Medical History: Cancer Additional Family Medical History / Comment(s): BONE AND LIVER CANCER Mother Additional Family Medical History / Comment(s): MOTHER AT 25 YEARS OLD, UNKNOWN Medications and Allergies Home Medications Medication Instructions Recorded Confirmed Type Latanoprost [Xalatan 0.005%] 1 drop BOTH EYES HS 12/27/16 08/17/24 History Brimonidine Tartrate [Alphagan P 1 drop RIGHT EYE BID 02/14/22 08/17/24 History 0.2% Ophth Soln] Timolol 0.5% Ophth Soln [Timoptic 1 drop BOTH EYES HS 02/14/22 08/17/24 History 0.5% Ophth Soln] Atorvastatin [Lipitor] 20 mg PO DAILY 08/17/24 08/17/24 History Magnesium Oxide [Mag-Ox] 400 mg PO HS 08/17/24 08/17/24 History amLODIPine [Norvasc] 10 mg PO DAILY 08/17/24 08/17/24 History hydroCHLOROthiazide [Hydrodiuril] 12.5 mg PO DAILY 08/17/24 08/17/24 History Allergies Allergy/AdvReac Type Severity Reaction Status Date / Time No Known Allergies Allergy Verified 08/17/24 13:10 Physical Exam Vitals: Vital Signs Temp Pulse Resp BP Pulse Ox 08/17/24 17:20 66 18 123/65 96 08/17/24 15:47 72 08/17/24 15:37 68 08/17/24 14:42 71 16 120/56 92 L 08/17/24 12:11 20 08/17/24 11:07 98.2 F 46 L 18 97/57 88 L Intake and Output 08/17/24 08/17/24 08/17/24 06:59 14:59 22:59 Other: Weight 70.307 kg The patient appeared well nourished and normally developed. Vital signs as documented. The patient is currently on 2 L of oxygen by nasal cannula Head exam is unremarkable. No scleral icterus or corneal arcus noted. Neck is without jugular venous distension, thyromegaly, or carotid bruits. Carotid upstrokes are brisk bilaterally. Lungs diminished bilaterally along with bibasilar crackles, breath sounds are diminished in left lung base. Cardiac exam reveals the PMI to be normally sized and situated. Rhythm is regular. First and second heart sounds normal. No murmurs, rubs or gallops. Abdominal exam reveals normal bowel sounds, no masses, no organomegaly and no aortic enlargement. Extremities are nonedematous and both femoral and pedal pulses are normal. Examination of the skin revealed no evidence of significant rashes, suspicious appearing nevi or other concerning lesions. Neurologically, the patient is awake and alert and the patient does not have any focal neurological deficit. Cranial nerves are essentially intact. Results - Laboratory Findings CBC and BMP: 08/17/24 12:09 08/17/24 12:09 PT/INR, D-dimer PT 11.5 sec (10.0-12.5) 08/17/24 12:09 INR 1.1 (<1.2) 08/17/24 12:09 Abnormal lab findings: Abnormal Labs 08/17/24 08/17/24 08/17/24 12:09 12:09 12:09 WBC 11.7 H Hgb 16.1 H Hct 49.4 H Neutrophils # 10.3 H Lymphocytes # 0.5 L APTT 30.2 H BUN 45 H Creatinine 1.30 H Glucose 135 H Magnesium 2.6 H Total Bilirubin 1.7 H Alkaline Phosphatase 136 H - Diagnostic Findings Chest x-ray: image reviewed Assessment and Plan Plan: Acute bronchitis/possible lower lobe pneumonia Acute hypoxic respiratory failure currently on 2 L of O2 nasal cannula 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
[2024-08-17] MEDS: LATANOPROST 0.005% OPHTH DROPS 2.5 ML BTL BOTH EYES SCH (21:17)
[2024-08-17] MEDS: MAGNESIUM OXIDE 400 MG TAB PO SCH (21:17)
[2024-08-17] MEDS: TIMOLOL 0.5% OPHTH DROPS 5 ML BTL BOTH EYES SCH (21:18)
[2024-08-17] MEDS: BRIMONIDINE TARTRATE 0.2% DROPS 5 ML BTL RIGHT EYE SCH (21:18)
[2024-08-18 00:07] LABS: Appearance,Urine Turbid (Clear); Bacteria,Urine Many /hpf; Bilirubin,Urine Negative (Negative); Blood,Urine Small (Negative); Color,Urine Yellow; Glucose,Urine (UA) Negative (Negative); Hyaline Casts,Urine 23 /lpf (0-2); Ketones,Urine 1+ (Negative); Leukocyte Esterase,Urine Large (Negative); Mucus,Urine Few /hpf; Nitrite,Urine Negative (Negative); PH, Urine 5.5 (5.0-8.0); Protein,Urine 1+ (Negative); RBC,Urine 19 /hpf (0-5); Specific Gravity,Urine 1.019 (1.001-1.035); Squamous Epithelial Cell,Urine 4 /hpf (0-4); Urobilinogen,Urine <2.0 mg/dL (<2.0); WBC,Urine >182 /hpf (0-5)
[2024-08-18] MEDS: HEPARIN SODIUM,PORCINE 5,000 UNIT/ML 1 ML VIAL SQ SCH (00:13)
[2024-08-18] MEDS: AMIODARONE 50 MG TAB PO SCH (02:31)
[2024-08-18] MEDS: AMIODARONE 100 MG TAB PO SCH (02:40)
[2024-08-18 08:42] LABS: Basophils # (A) 0.02 X 10*3/uL (0.00-0.10); Basophils % (A) 0.2 %; Eosinophils # (A) 0 X 10*3/uL (0.04-0.35); Eosinophils % (A) 0 %; HCT 44.9 % (37.2-46.3); HGB 14.4 g/dL (12.0-15.0); Lymphocytes # (A) 0.44 X 10*3/uL (0.90-5.00); Lymphocytes % (A) 4.9 %; MCH 30.1 pg (27.0-32.0); MCHC 32.1 g/dL (32.0-37.0); MCV 93.7 FL (80.0-97.0); Monocytes # (A) 0.26 X 10*3/uL (0.20-1.00); Monocytes % (A) 2.9 %; NRBC Per 100 WBC 0 X 10*3/uL (0.00-0.01); Neutrophils # (A) 8.16 X 10*3/uL (1.80-7.70); Neutrophils % (A) 91.6 %; Platelet Count 196 X 10*3/uL (140-440); RBC 4.79 X 10*6/uL (4.10-5.20); RDW 15.1 % (11.5-14.5); WBC 8.92 X 10*3/uL (4.50-10.00)
[2024-08-18] MEDS: ATORVASTATIN 20 MG TAB PO SCH (08:50)
[2024-08-18] MEDS: amLODIPine 10 MG TAB PO SCH (08:50)
[2024-08-18 09:23] LABS: ALT 14 U/L (8-44); AST 16 U/L (13-35); Albumin 3.5 g/dL (3.8-4.9); Albumin/Globulin Ratio 1.35 Ratio (1.60-3.17); Alkaline Phosphatase 105 U/L (41-126); BUN/Creat Ratio 39.91 Ratio (12.00-20.00); Blood Urea Nitrogen 43.9 mg/dL (9.0-27.0); Calcium 8.9 mg/dL (8.7-10.3); Carbon Dioxide 21.8 mmol/L (21.6-31.8); Chloride 104 mmol/L (96-109); Globulin 2.6 g/dL (1.6-3.3); Glucose 154 mg/dL (70-110); Potassium 4.1 mmol/L (3.5-5.5); Sodium 141 mmol/L (135-145); Total Bilirubin 0.5 mg/dL (0.3-1.2); Total Protein 6.1 g/dL (6.2-8.2)
--- NOTE | 2024-08-18 10:45 | P.CRDCN ---
History of Present Illness Consult date: 08/18/24 Reason for Consult (text): Bigeminy with pauses History of present illness: This is an 83-year-old female patient of Dr. Yessy Chinchilla with past medical history of hypertension, dyslipidemia, mitral insufficiency and aortic insufficiency. We have been asked to evaluate the patient for bigeminy with pauses. Patient states that she was admitted to the hospital due to pneumonia. She states she started with symptoms on Saturday morning with a cough and wheezing and felt clammy along with a cough and yellow sputum production and a little shortness of breath. She denies any fever. No chest pain no dizziness no palpitations no edema. No PND. She is not a smoker and she does not usually have problems with wheezing. She denies any blood in her stool or urine. Her cough is better since she has been admitted. Last night, patient did have PVCs on telemetry and she was started on amiodarone 50 mg twice daily by attending. Blood pressure 123/63, heart rate 74, pulse ox 93% on room 2 L nasal cannula. -EKG: Sinus rhythm with PVCs -Chest x-ray: COPD changes with increased bibasilar patchy airspace opacities. Findings may relate to interstitial fibrosis with superimposed infectious process not excluded. -Laboratory studies: Sodium 137, potassium 3.3, creatinine 0.74. WBC 14.1, hemoglobin 12.7. Troponin negative x 2. Influenza A, influenza B, RSV, COVID- 19 not detected. -Home cardiac medications: Amlodipine 10 mg daily, atorvastatin 20 mg daily, hydrochlorothiazide 12.5 mg daily, magnesium oxide 400 mg at bedtime -Lexiscan Cardiolite stress test performed 02/15/2022: No evidence of reversible ischemia. No significant change from prior. -Echocardiogram performed 02/14/2022 revealed normal LV ventricular dimension and systolic function. Mild aortic regurgitation. Review Of Systems: At the time of my exam: CONSTITUTIONAL: Denies fever or chills. HEENT: Denies blurred vision, vision changes, or eye pain. Denies hemoptysis CARDIOVASCULAR: Denies chest pain. Denies orthopnea. Denies PND. Denies palpitations RESPIRATORY: Denies shortness of breath. Reports cough. GASTROINTESTINAL: Denies abdominal pain. Denies nausea or vomiting. HEMATOLOGIC: Denies bleeding disorders. GENITOURINARY: Denies any blood in urine. SKIN: Denies puritis. Denies rash. Physical examination: Gen: This is an 83-year-old female in no acute distress VS: reviewed HEENT: Head is atraumatic, normocephalic. Pupils equal, round. Sclerae is an icteric. NECK: Supple. No JVD. LUNGS: Diminished bilaterally. No intercostal retractions. HEART: Regular rate and rhythm. No murmur. ABDOMEN: Soft No tenderness. EXTREMITIES: No pedal edema. No calf tenderness. NEUROLOGICAL: Patient is awake, alert and oriented x3. Assessment: PVCs most likely exacerbated by pneumonia Acute hypoxic respiratory failure secondary to acute bronchitis/possible pneumonia Hypertension Dyslipidemia Mitral insufficiency, aortic insufficiency Plan: Continue patient's home cardiac medications No need for antiarrhythmics Discontinue amiodarone Obtain 2-D echocardiogram and Doppler study to assess cardiac structure and function If echocardiogram reveals normal EF, no further cardiac workup at this time. Patient will follow-up with Dr. Yessy Chinchilla in the office in 2 weeks. Thank you kindly for this consultation. Nurse practitioner note has been reviewed, I agree with documented findings and plan of care. Patient was seen and examined. 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 Past Psychological History: No Psychological Hx Reported Smoking Status: Never smoker Past Alcohol Use History: Occasional Past Drug Use History: None Reported - Past Family History Father Family Medical History: Cancer Additional Family Medical History / Comment(s): BONE AND LIVER CANCER Mother Additional Family Medical History / Comment(s): MOTHER AT 25 YEARS OLD, UNKNOWN Medications and Allergies Home Medications Medication Instructions Recorded Confirmed Type Latanoprost [Xalatan 0.005%] 1 drop BOTH EYES HS 12/27/16 08/17/24 History Brimonidine Tartrate [Alphagan P 1 drop RIGHT EYE BID 02/14/22 08/17/24 History 0.2% Ophth Soln] Timolol 0.5% Ophth Soln [Timoptic 1 drop BOTH EYES HS 02/14/22 08/17/24 History 0.5% Ophth Soln] Atorvastatin [Lipitor] 20 mg PO DAILY 08/17/24 08/17/24 History Magnesium Oxide [Mag-Ox] 400 mg PO HS 08/17/24 08/17/24 History amLODIPine [Norvasc] 10 mg PO DAILY 08/17/24 08/17/24 History hydroCHLOROthiazide [Hydrodiuril] 12.5 mg PO DAILY 08/17/24 08/17/24 History Allergies Allergy/AdvReac Type Severity Reaction Status Date / Time No Known Allergies Allergy Verified 08/17/24 13:10 Physical Exam Vitals: Vital Signs Temp Pulse Pulse Resp BP BP Pulse Ox 08/18/24 07:04 97.3 F L 74 17 123/63 94 L 08/18/24 01:18 97.5 F L 60 16 117/60 90 L 08/17/24 20:14 77 08/17/24 20:07 71 08/17/24 18:57 98 F 68 16 105/68 92 L 08/17/24 18:13 96.9 F L 71 18 122/58 92 L 08/17/24 17:20 66 18 123/65 96 08/17/24 15:47 72 08/17/24 15:37 68 08/17/24 14:42 71 16 120/56 92 L 08/17/24 12:11 20 08/17/24 11:07 98.2 F 46 L 18 97/57 88 L Intake and Output 08/17/24 08/18/24 08/18/24 22:59 06:59 14:59 Intake Total 1080 Output Total 250 Balance 830 Intake: Oral 1080 Output: Urine 250 Other: # Voids 1 Weight 70.307 kg Results 08/18/24 04:08 08/18/24 04:08 Cardiac Enzymes 08/17/24 Range/Units 12:09 AST 18 (14-36) U/L Coagulation 08/17/24 Range/Units 12:09 PT 11.5 (10.0-12.5) sec APTT 30.2 H (22.0-30.0) sec CBC 08/17/24 Range/Units 12:09 WBC 11.7 H (3.8-10.6) k/uL RBC 5.20 (3.80-5.40) m/uL Hgb 16.1 H (11.4-16.0) gm/dL Hct 49.4 H (34.0-46.0) % Plt Count 227 (150-450) k/uL Comprehensive Metabolic Panel 08/17/24 Range/Units 12:09 Sodium 140 (137-145) mmol/L Potassium 3.6 (3.5-5.1) mmol/L Chloride 100 (98-107) mmol/L Carbon Dioxide 28 (22-30) mmol/L BUN 45 H (7-17) mg/dL Creatinine 1.30 H (0.52-1.04) mg/dL Glucose 135 H (74-99) mg/dL Calcium 9.4 (8.4-10.2) mg/dL AST 18 (14-36) U/L ALT 18 (4-34) U/L Alkaline Phosphatase 136 H (38-126) U/L Total Protein 6.8 (6.3-8.2) g/dL Albumin 4.0 (3.5-5.0) g/dL Current Medications Generic Name Dose Route Start Last Admin Trade Name Freq PRN Reason Stop Dose Admin Acetaminophen 650 mg 08/17/24 13:59 Acetaminophen Tab 325 Mg Tab PO Q6HR PRN Mild Pain or Fever > 100.5 Albuterol/Ipratropium 3 ml 08/17/24 13:18 Ipratropium-Albuterol 3 Ml Neb INHALATION RT-Q4H PRN shortness of breath Albuterol/Ipratropium 3 ml 08/17/24 16:00 08/17/24 20:03 Ipratropium-Albuterol 3 Ml Neb INHALATION 3 ml RT-QID NANCI Administration Amiodarone HCl 50 mg 08/18/24 01:53 08/18/24 02:40 Amiodarone 100 Mg Tab PO 50 mg BID NANCI Administration Amlodipine Besylate 10 mg 08/18/24 09:00 Amlodipine 10 Mg Tab PO DAILY [facility] Atorvastatin Calcium 20 mg 08/18/24 09:00 Atorvastatin 20 Mg Tab PO DAILY [facility] Azithromycin 500 mg 08/18/24 09:00 Azithromycin 500 Mg Tab PO 08/19/24 09:01 DAILY NANCI Protocol Brimonidine Tartrate 1 drops 08/17/24 21:00 08/17/24 21:18 Brimonidine Tartrate 0.2% Drops 5 Ml Btl RIGHT EYE 1 drops BID NANCI Administration Heparin Sodium (Porcine) 5,000 unit 08/18/24 00:00 08/18/24 00:13 Heparin Sodium,Porcine 5,000 Unit/Ml 1 Ml Vial SQ 5,000 unit Q8HR NANCI Administration Ceftriaxone Sodium 2 gm/ 50 mls @ 100 mls/hr 08/18/24 09:00 Sodium Chloride IVPB 08/21/24 09:29 Q24HR NANCI Protocol Latanoprost 1 drops 08/17/24 21:00 08/17/24 21:17 Latanoprost 0.005% Ophth Drops 2.5 Ml Btl BOTH EYES 1 drops HS NANCI Administration Magnesium Oxide 400 mg 08/17/24 21:00 08/17/24 21:17 Magnesium Oxide 400 Mg Tab PO 400 mg HS NANCI Administration Methylprednisolone Sodium Succinate 40 mg 08/17/24 14:30 08/17/24 21:17 Methylprednisolone Sod Succi 40 Mg/Ml 1 Ml Vial IV 40 mg Q12HR NANCI Administration Miscellaneous Information 1 each 08/17/24 13:18 Pneumonia Protocol Utilized 1 Each Misc PO ONCE PRN Per Protocol Naloxone HCl 0.2 mg 08/17/24 13:59 Naloxone 0.4 Mg/Ml 1 Ml Vial IV Q2M PRN Opioid Reversal Ondansetron HCl 4 mg 08/17/24 15:20 Ondansetron 4 Mg/2 Ml Vial IVP Q8HR PRN Nausea Timolol Maleate 1 drops 08/17/24 21:00 08/17/24 21:18 Timolol 0.5% Ophth Drops 5 Ml Btl BOTH EYES 1 drops HS NANCI Administration Intake and Output 08/17/24 08/18/24 08/18/24 22:59 06:59 14:59 Intake Total 1080 Output Total 250 Balance 830 Intake: Oral 1080 Output: Urine 250 Other: # Voids 1 Weight 70.307 kg 08/17/24 12:09 08/17/24 12:09
--- NOTE | 2024-08-18 11:35 | XR ---
EXAMINATION TYPE: XR chest 1V DATE OF EXAM: 08/18/2024 COMPARISON: 08/17/2024 CLINICAL INDICATION: Female, 83 years old with history of pneumonia; TECHNIQUE: Single frontal view of the chest is obtained. FINDINGS: Similar asymmetric elevation left hemidiaphragm. Increasing patchy left basilar opacity. S imilar patchy right basilar opacity and background mild interstitial density and hyperinflation. Old healed left surgical neck fracture deformity. IMPRESSION: 1. COPD with similar interstitial density. 2. Similar patchy density at the right base but with worsening aeration and airspace disease/atelecta sis at the left base. [facility], , 08/18/2024 11:33 AM
[2024-08-18] MEDS: AZITHROMYCIN 500 MG TAB PO SCH (11:55)
--- NOTE | 2024-08-18 12:26 | P.PN ---
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 She presented to the emergency department with a chief complaint of shortness of breath and productive cough of thick yellow phlegm. She initially presented to her PCPs office and was informed that she had pneumonia and needed to go to the hospital for admission. On arrival to our facility, patient underwent evaluation in the emergency department. Vital signs upon arrival show blood pressure 97/57, heart rate 46, respiratory rate 18, temp 98.2 F, and SpO2 of 88% on room air. Patient requiring 4 L O2 to increase SpO2 to 92%. EKG was completed showing sinus mechanism with T wave inversion in aVL and frequent PVCs in a pattern of trigeminy. Chest x-ray completed showing COPD with increased patchy opacities and chronic elevation of left hemidiaphragm. Labs completed and reviewed. CBC showing leukocytosis with WBC count of 11.7 and elevated hemoglobin of 16.1. Coagulation profile showing a low PTT of 30.2. BMP showing acute kidney injury with BUN of 45, creatinine of 1.30, GFR of 38 with baseline creatinine of 0.9. Blood glucose was 135. Lactic acid was 1.8. Magnesium 2.6. Liver profile showing hyperbilirubinemia with total bili of 1.7 and elevated alkaline phosphatase of 136. Influenza A, influenza B, RSV, and COVID PCR were negative. Patient was admitted under our services with consultation to pulmonology. Overnight patient's PVCs became more frequent and she was found to be in bigeminy with brief cardiac pauses. C ardiology was consulted. Physical exam: Patient seen and fully evaluated at bedside this morning. She reports she is already feeling better since coming to the hospital. She states she is not quite back to her baseline but definitely improving with the breathing treatments and medications that she has been receiving. Patient denies having any other complaints at this time including headache, lightheadedness, dizziness, chest pain, palpitations, or experiencing any numbness/tingling/weakness in her extremities. Vital signs reviewed and stable. General: Nontoxic, no distress and appears stated age. Derm: Skin warm and dry, normal coloration for ethnicity. Head: Atraumatic, normocephalic and symmetric. Eyes: EOM's intact, no lid lag, and anicteric sclera Mouth: no lip lesions, mucus membranes moist Cardiovascular: regular rate and rhythm with normal S1S2, systolic murmur, positive posterior tibial pulses bilaterally, and cap refill < 2 seconds. Lungs: Respirations even, regular, and unlabored on 2 L O2. Lungs diminished with bibasilar crackles this morning. No wheezing present on examination today, no rhonchi, no rales. No accessory muscle usage. Abdominal: soft, nontender to palpation, no guarding, no appreciable organomegaly Ext: ROM intact. No gross muscle atrophy, no edema, no contractures Neuro: Speech clear, face symmetrical and CN II-XII grossly intact with no noted focal neuro deficits Psych: Alert and oriented to person, place, time, and situation. Appropriate and pleasant affect. Assessment and Plan of Care: Acute respiratory failure with hypoxia Pulmonary fibrosis Concerns of community-acquired pneumonia with chronic lung condition -Oxygenation to be administered and titrated as needed to maintain SPO2 equal to or greater than 92% -Telemetry monitoring. -Monitor pulse-oximetry -Duonebs scheduled 4 times daily and as needed for SOB and/or wheezing -Incentive Spirometry -Steroids: Solu-Medrol 40 mg IV every 12 hours -Antibiotics: Rocephin 2 g IVPB and azithromycin 500 mg daily. -Follow-up on sputum culture, Legionella antigen, and blood culture -Pulmonary following. Reviewed documentation in chart. Fleecer in agreement with current plan of care. Acute kidney injury UTI -Likely secondary to dehydration. Renal function improving with IV fluid hydration. Patient to continue gentle IV fluid hydration with 0.9% normal saline at 75 cc/h. Nephrotoxic medications including hydrochlorothiazide held pending improvement of renal function. -Continued close monitoring with repeat a.m. labs. -Urinalysis positive for infection. Patient already on Rocephin 2 g daily for treatment of CAP, Rocephin will provide cross coverage for treatment of both. Bigeminy with cardiac pauses -Likely secondary to acute respiratory failure with hypoxia resulting from pneumonia -Cardiology consulted, discussed with cardiac ICE PLATFORM SUPERVISOR will obtain an echocardiogram and if normal no need for further cardiac workup at this time and recommending patient follow-up outpatient with her primary adjunct phlebotomy instructor Dr. Chinchilla in 2 weeks. -Continue telemetry monitoring. Hypertension -Monitor vital signs and continue daily medication regimen with amlodipine 10 mg nightly. Hydrochlorothiazide held secondary to acute kidney injury. 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 Data and imaging reviewed: Morning labs reviewed. CBC unremarkable showing resolution of leukocytosis with WBC count decreasing from 11.7 down to 8.92 and improvement of hemoglobin from 16.1 down to 14.4 after IV fluid hydration. BMP showing improvement of acute kidney injury with BUN of 43.9, creatinine of 1.1, GFR increasing to 50. Anion gap slightly elevated at 15.20. Blood glucose 154. Liver profile unremarkable with exception of albumin slightly low at 3.5. Urinalysis positive for infection. Urine Legionella negative. Vital signs reviewed. Blood pressure 123/63, heart rate 74, respiratory rate 17, temp 97.3 F, and SpO2 of 93% on 2 L. CODE STATUS: Full code DVT prophylaxis: Heparin Anticipated discharge date: Pending clinical course Anticipated discharge place: Pending clinical course, likely home Patient was seen independently by Nurse Practitioner. This document was prepared using [employer] dictation software. Please allow for e rrors in dredging inspector while rare they do occur. Rory Shultz NP rendered care for this patient independently, reviewed the findings and plan as documented in the note above and agree with plan. I did not physically speak with or examine the patient on this date. Objective - Vital Signs Vital signs: Vital Signs Temp 97.3 F L 08/18/24 07:04 Pulse 74 08/18/24 07:04 Resp 17 08/18/24 07:04 BP 123/63 08/18/24 07:04 Pulse Ox 94 L 08/18/24 07:04 FiO2 Intake & Output 08/17/24 08/18/24 08/18/24 18:59 06:59 18:59 Intake Total 1080 Output Total 250 Balance 830 Weight 70.307 kg Intake: Oral 1080 Output: Urine 250 Other: # Voids 1 - Labs CBC & Chem 7: 08/18/24 04:08 08/18/24 04:08 Labs: Abnormal Lab Results - Last 24 Hours (Table) 11/08/17/24 08/17/24 Range/Units 12:09 12:09 12:09 WBC 11.7 H (3.8-10.6) k/uL Hgb 16.1 H (11.4-16.0) gm/dL Hct 49.4 H (34.0-46.0) % Neutrophils # 10.3 H (1.3-7.7) k/uL Lymphocytes # 0.5 L (1.0-4.8) k/uL APTT 30.2 H (22.0-30.0) sec BUN 45 H (7-17) mg/dL Creatinine 1.30 H (0.52-1.04) mg/dL Glucose 135 H (74-99) mg/dL Magnesium 2.6 H (1.6-2.3) mg/dL Total Bilirubin 1.7 H (0.2-1.3) mg/dL Alkaline Phosphatase 136 H (38-126) U/L Urine Appearance (Clear) Urine Protein (Negative) Urine Ketones (Negative) Urine Blood (Negative) Ur Leukocyte Esterase (Negative) Urine RBC (0-5) /hpf Urine WBC (0-5) /hpf Urine WBC Clumps (None) /hpf Urine Bacteria (None) /hpf Hyaline Casts (0-2) /lpf Urine Mucus (None) /hpf 08/17/24 Range/Units 23:45 WBC (3.8-10.6) k/uL Hgb (11.4-16.0) gm/dL Hct (34.0-46.0) % Neutrophils # (1.3-7.7) k/uL Lymphocytes # (1.0-4.8) k/uL APTT (22.0-30.0) sec BUN (7-17) mg/dL Creatinine (0.52-1.04) mg/dL Glucose (74-99) mg/dL Magnesium (1.6-2.3) mg/dL Total Bilirubin (0.2-1.3) mg/dL Alkaline Phosphatase (38-126) U/L Urine Appearance Turbid H (Clear) Urine Protein 1+ H (Negative) Urine Ketones 1+ H (Negative) Urine Blood Small H (Negative) Ur Leukocyte Esterase Large H (Negative) Urine RBC 19 H (0-5) /hpf Urine WBC >182 H (0-5) /hpf Urine WBC Clumps Many H (None) /hpf Urine Bacteria Many H (None) /hpf Hyaline Casts 23 H (0-2) /lpf Urine Mucus Few H (None) /hpf
--- NOTE | 2024-08-18 13:25 | CA ---
Transthoracic Echo Report Name: Bere Jackson Age: 83 Gender: F : 1940 Exam Date: 08/18/2024 10:46 Exam Location: [facility] Ht (in): 66 Wt (lb): 155 Ordering Physician: Lynn Kidd Attending/Referring Phys: [id number], Bernabe Neighborhood Coordinator Samantha Chase, LAUREL Procedure CPT: Indications: LVF Cardiac Hx: Technical Quality: Fair Contrast 1: Total Dose (mL): Contrast 2: Total Dose (mL): MEASUREMENTS (Male / Female) Normal Values 2D ECHO LV Diastolic Diameter PLAX 4.1 cm 4.2 - 5.9 / 3.9 - 5.3 cm LV Systolic Diameter PLAX 2.1 cm IVS Diastolic Thickness 1.2 cm 0.6 - 1.0 / 0.6 - 0.9 cm LVPW Diastolic Thickness 1.2 cm 0.6 - 1.0 / 0.6 - 0.9 cm LV Relative Wall Thickness 0.6 RV Internal Dim ED PLAX 1.7 cm LA Systolic Diameter LX 4.0 cm 3.0 - 4.0 / 2.7 - 3.8 cm LV Diastolic Volume MOD BP 57.2 cm??? 67 - 155 / 56 - 104 cm??? LV Systolic Volume MOD BP 18.1 cm??? 22 - 58 / 19 - 49 cm??? LV Ejection Fraction MOD BP 68.4 % >= 55 % LV Cardiac Index MOD BP 1869.7 cm???/min???m??? LV Diastolic Volume MOD 4C 81.2 cm??? LV Systolic Volume MOD 4C 19.4 cm??? LV Ejection Fraction MOD 4C 76.2 % LV Cardiac Index MOD 4C 2957.2 cm???/min???m??? LV Diastolic Length 4C 6.9 cm LV Systolic Length 4C 5.1 cm LV Diastolic Volume MOD 2C 38.4 cm??? LV Systolic Volume MOD 2C 16.0 cm??? LV Ejection Fraction MOD 2C 58.4 % LV Cardiac Index MOD 2C 1071.0 cm???/min???m??? LV Diastolic Length 2C 6.4 cm LV Systolic Length 2C 4.8 cm LA Volume 59.3 cm??? 18 - 58 / 22 - 52 cm??? LA Volume Index 32.6 cm???/m??? 16 - 28 cm???/m??? M-MODE Aortic Root Diameter MM 2.6 cm LA Systolic Diameter MM 3.8 cm LA Ao Ratio MM 1.4 AV Cusp Separation MM 1.8 cm DOPPLER AV Peak Velocity 190.0 cm/s AV Peak Gradient 14.4 mmHg AV Mean Velocity 125.3 cm/s AV Mean Gradient 7.3 mmHg AV Velocity Time Integral 40.5 cm AI Peak Velocity 300.7 cm/s AI Peak Gradient 36.2 mmHg AI Pressure Half Time 633.7 ms MV Area PHT 2.5 cm??? Mitral E Point Velocity 91.2 cm/s Mitral A Point Velocity 111.2 cm/s Mitral E to A Ratio 0.8 MV Deceleration Time 300.9 ms TR Peak Velocity 258.9 cm/s TR Peak Gradient 26.8 mmHg Right Ventricular Systolic Press 35.7 mmHg FINDINGS Left Ventricle Left ventricular ejection fraction is estimated at 55-60 %. Normal left ventricular systolic function with no obvious regional wall motion abnormalities. Mildly increased left ventricular wall thickness. Left ventricular cavity size normal. Right Ventricle Normal right ventricular size and function. Mild pulmonary hypertension. Right Atrium Mild right atrial dilatation. Left Atrium Mildly increased left atrial diameter. Mildly increased left atrial volume. Mitral Valve Structurally normal mitral valve. Mild mitral regurgitation. No mitral stenosis.mitral annular calcification. Aortic Valve Trileaflet aortic valve. No aortic stenosis. Mild aortic regurgitation.aortic valve sclerosis. Tricuspid Valve Structurally normal tricuspid valve. Mild tricuspid regurgitation. No tricuspid stenosis. Pulmonic Valve Pulmonic valve not well visualized. Pericardium No pericardial effusion. Left pleural effusion. Aorta Normal size aortic root and proximal ascending aorta. CONCLUSIONS 1. Normal left ventricular size and systolic function 2. Mild mitral and tricuspid regurgitation with mild pulmonary hypertension Previewed by: Dr. Candido Booth MD (Electronically Signed) Final Date: 18 August 2024 13:24
--- NOTE | 2024-08-18 14:50 | P.PN ---
Subjective Progress Note Date: 08/18/24 This is a 83-year-old female patient coming into the hospital because of a cough and congestion. The patient is producing mucus and her symptoms have been going on for the past 3 to 4 days. No reported aspiration. 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 Reviewed the chest x-ray and the patient is a chronic eventration of the left hemidiaphragm. There is also evidence of patchy airspace disease and some cardiomegaly. No reported aspiration. No altered mentation. No nausea vomiting or diarrhea. The viral screen has been negative and the blood work shows a BUN of 45 with a creatinine of 1.3 and a sodium levels at 140. White cell count is 11.7 with a hemoglobin 16.1 and a platelet count of 227. The patient is currently on oxygen at 2 L/min nasal cannula. Afebrile hemodynamically stable. Started on Rocephin and Zithromax. Started on IV Solu-Medrol. Started on IV fluids normal saline at 75 cc an hour. On 08/18/2024, the patient is doing extremely well. No significant shortness of breath. Cough and congestion is improved compared to yesterday. The patient remains on 2 L of oxygen by nasal cannula with a pulse ox of 90%. No reported aspiration. White cell count down to 8.9, hemoglobin is 14.4 and platelet count of 196. Electrolytes are all stable and within normal limits with a BUN of 43 and a creatinine of 1.1. UA was abnormal, awaiting urine cultures. Meanwhile, the patient remains on a combination of Rocephin and Zithromax. The patient is on DuoNeb nebulized treatments [id number]. The patient remains on IV Solu-Medrol 40 mg every 12 hours. No other significant events overnight. Objective - Vital Signs Vital signs: Vital Signs Temp 97.3 F L 08/18/24 07:04 Pulse 76 08/18/24 09:29 Resp 18 08/18/24 11:22 BP 123/63 08/18/24 07:04 Pulse Ox 93 L 08/18/24 09:20 FiO2 Intake & Output 08/17/24 08/18/24 08/18/24 18:59 06:59 18:59 Intake Total 1080 200 Output Total 250 Balance 830 200 Weight 70.307 kg Intake: Oral 1080 200 Output: Urine 250 Other: # Voids 1 - Exam The patient appeared well nourished and normally developed. Vital signs as documented. The patient is currently on 2 L of oxygen by nasal cannula Head exam is unremarkable. No scleral icterus or corneal arcus noted. Neck is without jugular venous distension, thyromegaly, or carotid bruits. Carotid upstrokes are brisk bilaterally. Lungs diminished bilaterally along with bibasilar crackles, breath sounds are diminished in left lung base. Cardiac exam reveals the PMI to be normally sized and situated. Rhythm is regular. First and second heart sounds normal. No murmurs, rubs or gallops. Abdominal exam reveals normal bowel sounds, no masses, no organomegaly and no aortic enlargement. Extremities are nonedematous and both femoral and pedal pulses are normal. Examination of the skin revealed no evidence of significant rashes, suspicious appearing nevi or other concerning lesions. Neurologically, the patient is awake and alert and the patient does not have any focal neurological deficit. Cranial nerves are essentially intact. - Labs CBC & Chem 7: 08/18/24 04:08 08/18/24 04:08 Labs: Abnormal Lab Results - Last 24 Hours (Table) 08/17/24 08/17/24 08/17/24 Range/Units 12:09 12:09 12:09 WBC 11.7 H (3.8-10.6) k/uL Hgb 16.1 H (11.4-16.0) gm/dL Hct 49.4 H (34.0-46.0) % RDW (11.5-14.5) % Neutrophils # 10.3 H (1.3-7.7) k/uL Lymphocytes # 0.5 L (1.0-4.8) k/uL Eosinophils # (0.04-0.35) X 10*3/uL APTT 30.2 H (22.0-30.0) sec Anion Gap (4.00-12.00) mmol/L BUN 45 H (7-17) mg/dL Creatinine 1.30 H (0.52-1.04) mg/dL Est GFR (CKD-EPI) (>=60) BUN/Creatinine Ratio (12.00-20.00) Ratio Glucose 135 H (74-99) mg/dL Magnesium 2.6 H (1.6-2.3) mg/dL Total Bilirubin 1.7 H (0.2-1.3) mg/dL Alkaline Phosphatase 136 H (38-126) U/L Total Protein (6.2-8.2) g/dL Albumin (3.8-4.9) g/dL Albumin/Globulin Ratio (1.60-3.17) Ratio Urine Appearance (Clear) Urine Protein (Negative) Urine Ketones (Negative) Urine Blood (Negative) Ur Leukocyte Esterase (Negative) Urine RBC (0-5) /hpf Urine WBC (0-5) /hpf Urine WBC Clumps (None) /hpf Urine Bacteria (None) /hpf Hyaline Casts (0-2) /lpf Urine Mucus (None) /hpf 08/17/24 08/18/24 08/18/24 Range/Units 23:45 04:08 04:08 WBC (3.8-10.6) k/uL Hgb (11.4-16.0) gm/dL Hct (34.0-46.0) % RDW 15.1 H (11.5-14.5) % Neutrophils # 8.16 H (1.3-7.7) k/uL Lymphocytes # 0.44 L (1.0-4.8) k/uL Eosinophils # 0 L (0.04-0.35) X 10*3/uL APTT (22.0-30.0) sec Anion Gap 15.20 H (4.00-12.00) mmol/L BUN 43.9 H (7-17) mg/dL Creatinine (0.52-1.04) mg/dL Est GFR (CKD-EPI) 50 L (>=60) BUN/Creatinine Ratio 39.91 H (12.00-20.00) Ratio Glucose 154 H (74-99) mg/dL Magnesium (1.6-2.3) mg/dL Total Bilirubin (0.2-1.3) mg/dL Alkaline Phosphatase (38-126) U/L Total Protein 6.1 L (6.2-8.2) g/dL Albumin 3.5 L (3.8-4.9) g/dL Albumin/Globulin Ratio 1.35 L (1.60-3.17) Ratio Urine Appearance Turbid H (Clear) Urine Protein 1+ H (Negative) Urine Ketones 1+ H (Negative) Urine Blood Small H (Negative) Ur Leukocyte Esterase Large H (Negative) Urine RBC 19 H (0-5) /hpf Urine WBC >182 H (0-5) /hpf Urine WBC Clumps Many H (None) /hpf Urine Bacteria Many H (None) /hpf Hyaline Casts 23 H (0-2) /lpf Urine Mucus Few H (None) /hpf Assessment and Plan Plan: Acute bronchitis/possible lower lobe pneumonia Acute hypoxic respiratory failure currently on 2 L of O2 nasal cannula 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
[2024-08-19 02:57] VITALS: TEMP 97.3
[2024-08-19 08:29] LABS: HCT 41.8 % (37.2-46.3); HGB 13.6 g/dL (12.0-15.0); MCH 30.8 pg (27.0-32.0); MCHC 32.5 g/dL (32.0-37.0); MCV 94.6 FL (80.0-97.0); Mean Platelet Volume 11.1 FL (9.5-12.2); NRBC Per 100 WBC 0 X 10*3/uL (0.00-0.01); Platelet Count 203 X 10*3/uL (140-440); RBC 4.42 X 10*6/uL (4.10-5.20); RDW 15.4 % (11.5-14.5); WBC 10.53 X 10*3/uL (4.50-10.00)
[2024-08-19 08:40] VITALS: BP 129/67; RESP 16
[2024-08-19 09:02] LABS: BUN/Creat Ratio 40.29 Ratio (12.00-20.00); Blood Urea Nitrogen 56.4 mg/dL (9.0-27.0); Calcium 8.9 mg/dL (8.7-10.3); Chloride 107 mmol/L (96-109); Glucose 159 mg/dL (70-110); Potassium 3.8 mmol/L (3.5-5.5); Sodium 142 mmol/L (135-145)
--- NOTE | 2024-08-19 11:19 | P.PN ---
Subjective Progress Note Date: 08/19/24 This is an 83-year-old female patient of Dr. Yessy Chinchilla with past medical history of hypertension, dyslipidemia, mitral insufficiency and aortic insufficiency. We have been asked to evaluate the patient for bigeminy with pauses. Patient states that she was admitted to the hospital due to pneumonia. She states she started with symptoms on Saturday morning with a cough and wheezing and felt clammy along with a cough and yellow sputum production and a little shortness of breath. She denies any fever. No chest pain no dizziness no palpitations no edema. No PND. She is not a smoker and she does not usually have problems with wheezing. She denies any blood in her stool or urine. Her cough is better since she has been admitted. Last night, patient did have PVCs on telemetry and she was started on amiodarone 50 mg twice daily by attending. Blood pressure 123/63, heart rate 74, pulse ox 93% on room 2 L nasal cannula. -EKG: Sinus rhythm with PVCs -Chest x-ray: COPD changes with increased bibasilar patchy airspace opacities. Findings may relate to interstitial fibrosis with superimposed infectious process not excluded. -Laboratory studies: Sodium 142, potassium 3.8, creatinine 1.4. WBC 10.53, hemoglobin 13.6. Troponin negative x 3. Influenza A, influenza B, RSV, COVID- 19 not detected. -Home cardiac medications: Amlodipine 10 mg daily, atorvastatin 20 mg daily, hydrochlorothiazide 12.5 mg daily, magnesium oxide 400 mg at bedtime -Lexiscan Cardiolite stress test performed 02/15/2022: No evidence of reversible ischemia. No significant change from prior. -Echocardiogram performed 02/14/2022 revealed normal LV ventricular dimension and systolic function. Mild aortic regurgitation. 08/19/2024 Patient underwent echocardiogram yesterday that showed normal LV systolic function with mild MR, mild TR and mild pulmonary hypertension. He continues to have occasional PVCs, asymptomatic. Vital signs are stable. Overall she is feeling better. Her breathing has improved. She denies any complaints of chest discomfort, orthopnea or PND. She has no lower extremity edema. Review Of Systems: At the time of my exam: CONSTITUTIONAL: Denies fever or chills. HEENT: Denies blurred vision, vision changes, or eye pain. Denies hemoptysis CARDIOVASCULAR: Denies chest pain. Denies orthopnea. Denies PND. Denies palpitations RESPIRATORY: Denies shortness of breath. Reports cough. GASTROINTESTINAL: Denies abdominal pain. Denies nausea or vomiting. HEMATOLOGIC: Denies bleeding disorders. GENITOURINARY: Denies any blood in urine. SKIN: Denies puritis. Denies rash. Physical examination: Gen: This is an 83-year-old female in no acute distress VS: reviewed HEENT: Head is atraumatic, normocephalic. Pupils equal, round. Sclerae is anicteric. NECK: Supple. No JVD. LUNGS: Diminished bilaterally. No intercostal retractions. HEART: Regular rate and rhythm. No murmur. ABDOMEN: Soft No tenderness. EXTREMITIES: No pedal edema. No calf tenderness. NEUROLOGICAL: Patient is awake, alert and oriented x3. Assessment: PVCs most likely exacerbated by pneumonia Acute hypoxic respiratory failure secondary to acute bronchitis/possible pneumonia Hypertension Dyslipidemia Mitral insufficiency, aortic insufficiency Plan: From cardiology's perspective no need for further cardiac workup at this time. She will follow-up in the office as an outpatient with Dr. Chinchilla. MANAGER BEHAVIOR note has been reviewed, I agree with a documented findings and plan of care. Patient was seen and examined. Objective - Vital Signs Vital signs: Vital Signs Temp 97.3 F L 08/19/24 07:43 Pulse 78 08/19/24 08:54 Resp 16 08/19/24 07:43 BP 129/67 08/19/24 07:43 Pulse Ox 91 L 08/19/24 08:47 FiO2 Intake & Output 08/18/24 08/19/24 08/19/24 18:59 06:59 18:59 Intake Total 420 Balance 420 Intake: Oral 420 Other: # Voids 3 3 - Labs CBC & Chem 7: 08/19/24 02:46 08/19/24 02:46 Labs: Abnormal Lab Results - Last 24 Hours (Table) 08/18/24 08/19/24 08/19/24 Range/Units 11:08 02:46 02:46 WBC 10.53 H (4.50-10.00) X 10*3/uL RDW 15.4 H (11.5-14.5) % BUN 56.4 H (9.0-27.0) mg/dL Est GFR (CKD-EPI) 37 L (>=60) BUN/Creatinine Ratio 40.29 H (12.00-20.00) Ratio Glucose 159 H (70-110) mg/dL Magnesium 2.6 H 3.0 H (1.5-2.4) mg/dL Microbiology - Last 24 Hours (Table) 08/17/24 12:09 Blood Culture Gram Stain - Preliminary Blood Blood Culture - Preliminary Molecular ID
--- NOTE | 2024-08-19 12:02 | P.DS ---
Providers Date of admission: 08/17/24 13:59 Expected date of discharge: 08/19/24 Attending physician: Jose Buck Consults: 08/17/24 13:59 Consult Physician Routine Consulting Provider: Jadyn Auguste Consult Reason/Comments: pneumonia, hypoxic resp failure Do you want consulting provider notified?: Yes 08/18/24 01:13 Consult Physician Urgent Consulting Provider: Gómez Garcia Consult Reason/Comments: Bigeminy with pauses Do you want consulting provider notified?: Yes Primary care physician: Saúl Jauregui [facility] Hospital Course: Discharge Diagnosis: Acute respiratory failure with hypoxia, multifactorial secondary to community- acquired pneumonia with underlying chronic lung condition/pulmonary fibrosis. Patient completed 3-day course of azithromycin and Rocephin. Patient to complete antibiotic course with Vantin 200 mg every 12 hours for an additional 4 days. Patient also being discharged home with Medrol Dosepak and albuterol nebulizer treatments. Patient instructed to continue nebulizer treatments scheduled 4 times daily for the next week and then may transition to as needed for shortness of breath and/or wheezing. Patient is ambulatory pulse ox was 88% on room air qualifying her for home oxygen. Patient was to be prescribed home oxygen, however she declined and states she will not wear home oxygen and 88% is her baseline oxygen status with her pulmonary fibrosis and this is a previously known finding. Patient cleared from sales clerk supervisor perspective recommending outpatient follow-up in their office in 1 week. She is medically optimized and stable for discharge at this time. Patient to follow-up outpatient with PCP in 1 to 2 days and with sales clerk supervisor in 1 week. Pulmonary fibrosis Community-acquired pneumonia with chronic lung condition Acute kidney injury. Hydralazine held and patient provided with IV fluid hydration. Patient instructed to continue to hold hydralazine until 08/24/2024 and with prescription for repeat BMP in 3 days with results to be sent to PCP for follow-up and management. UTI. Patient completed 3-day course of antibiotics with Rocephin and discharged home on an additional 4-day course of cefpodoxime for dual treatment of UTI and pneumonia. Blood cultures positive for Staphylococcus epidermidis no resistant genes. This is believed to be contaminant. Patient presenting with upper respiratory complaints and denies any other complaints at this time. Bigeminy with cardiac pauses. Believed to be secondary to acute respiratory failure with hypoxia resulting from pneumonia. Cardiology evaluated. Echocardiogram was completed showing preserved EF of 55 to 60% with mild mitral and tricuspid regurgitation and mild pulmonary hypertension. Cardiology stating no need for further cardiac workup at this time and recommending patient follow- up outpatient with her primary christmas tree contractor, Dr. Bloom in 2 weeks. Hypertension. Monitor vital signs and continue daily medication regimen with amlodipine 10 mg nightly. Hydrochlorothiazide held secondary to acute kidney injury, patient instructed to continue to hold and may resume on 08/24/2024.. 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 Continue brimonidine tartrate drops, 1 drop right eye twice daily, timolol ophthalmology drops 1 drop both eyes nightly, and Xalatan ophthalmologic drops 1 drop both eyes nightly. 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 She presented to the emergency department with a chief complaint of shortness of breath and productive cough of thick yellow phlegm. She initially presented to her PCPs office and was informed that she had pneumonia and needed to go to the hospital for admission. On arrival to our facility, patient underwent evaluation in the emergency department. Vital signs upon arrival show blood pressure 97/57, heart rate 46, respiratory rate 18, temp 98.2 F, and SpO2 of 88% on room air. Patient requiring 4 L O2 to increase SpO2 to 92%. EKG was completed showing sinus mechanism with T wave inversion in aVL and frequent PVCs in a pattern of trigeminy. Chest x-ray completed showing COPD with increased patchy opacities and chronic elevation of left hemidiaphragm. Labs completed and reviewed. CBC showing leukocytosis with WBC count of 11.7 and elevated hemoglobin of 16.1. Coagulation profile showing a low PTT of 30.2. BMP showing acute kidney injury with BUN of 45, creatinine of 1.30, GFR of 38 with baseline creatinine of 0.9. Blood glucose was 135. Lactic acid was 1.8. Magnesium 2.6. Liver profile showing hyperbilirubinemia with total bili of 1.7 and elevated alkaline phosphatase of 136. Influenza A, influenza B, RSV, and COVID PCR were negative. Patient was admitted under our services with consultation to pulmonology. Overnight patient's PVCs became more frequent and she was found to be in bigeminy with brief cardiac pauses. Car diology evaluated. Echocardiogram was completed showing preserved EF of 55 to 60% with mild mitral and tricuspid regurgitation and mild pulmonary hypertension. Cardiology stating no need for further cardiac workup at this time and recommending patient follow-up outpatient with her primary christmas tree contractor, Dr. Bloom in 2 weeks. Blood cultures positive for Staphylococcus epidermidis no resistant genes. This is believed to be contaminant no clinical concerns for bacteremia. Patient presenting with upper respiratory complaints and denies any other complaints at this time. Patient completed 3-day course of azithromycin and Rocephin. She reports feeling great and back at her baseline. She denies any other complaints at this time. Patient to complete antibiotic course with Vantin 200 mg every 12 hours for an additional 4 days. Patient also being discharged home with Medrol Dosepak and albuterol nebulizer treatments. Patient instructed to continue nebulizer treatments scheduled 4 times daily for the next week and then may transition to as needed for shortness of breath and/or wheezing. Patient is ambulatory pulse ox was 88% on room air qualifying her for home oxygen. Patient was to be prescribed home oxygen, however she declined and states she will not wear home oxygen and 88% is her baseline oxygen status with her pulmonary fibrosis and this is a previously known finding. Caitlin ent cleared from sales clerk supervisor perspective recommending outpatient follow-up in their office in 1 week. She is medically optimized and stable for discharge at this time. Patient to follow-up outpatient with PCP in 1 to 2 days and with sales clerk supervisor in 1 week. Physical exam: Vital signs reviewed and stable. General: Nontoxic, no distress and appears stated age. Derm: Skin warm and dry, normal coloration for ethnicity. Head: Atraumatic, normocephalic and symmetric. Eyes: EOM's intact, no lid lag, and anicteric sclera Mouth: no lip lesions, mucus membranes moist Cardiovascular: regular rate and rhythm with normal S1S2, systolic murmur, positive posterior tibial pulses bilaterally, and cap refill < 2 seconds. Lungs: Respirations even, regular, and unlabored on 2 L O2. Lungs diminished with bibasilar crackles this morning. No wheezing present on examination today, no rhonchi, no rales. No accessory muscle usage. Abdominal: soft, nontender to palpation, no guarding, no appreciable organomegaly Ext: ROM intact. No gross muscle atrophy, no edema, no contractures Neuro: Speech clear, face symmetrical and CN II-XII grossly intact with no noted focal neuro deficits Psych: Alert and oriented to person, place, time, and situation. Appropriate and pleasant affect. A total of 35 minutes of time were spent preparing this complex discharge summary. Pt was discharged on 08/19/2024 at 11:53 AM. Patient was seen independently by Nurse Practitioner. This document was prepared using linkedFA dictation software. Please allow for errors in stemmer machine while rare they do occur. Rory Shultz NP rendered care for this patient independently, reviewed the findings and plan as documented in the note above. I did not physically speak with or examine the patient on this date. Patient Condition at Discharge: Stable Plan - Discharge Summary Discharge Rx Participant: No New Discharge Prescriptions: New Ipratropium-Albuterol Nebulize [Duoneb 0.5 mg-3 mg/3 ml Soln] 3 ml INHALATION QID 30 Days #120 each methylPREDNISolone Dose Pack [Medrol Dose Pack] 4 mg PO DIRECTED #21 tab Cefpodoxime Proxetil [Vantin] 200 mg PO Q12HR 4 Days #8 tab Continue Latanoprost [Xalatan 0.005%] 1 drop BOTH EYES HS amLODIPine [Norvasc] 10 mg PO DAILY Magnesium Oxide [Mag-Ox] 400 mg PO HS Timolol 0.5% Ophth Soln [Timoptic 0.5% Ophth Soln] 1 drop BOTH EYES HS Brimonidine Tartrate [Alphagan P 0.2% Ophth Soln] 1 drop RIGHT EYE BID hydroCHLOROthiazide [Hydrodiuril] 12.5 mg PO DAILY Atorvastatin [Lipitor] 20 mg PO DAILY Discharge Medication List Latanoprost [Xalatan 0.005%] 1 drop BOTH EYES HS 12/27/16 [History] Brimonidine Tartrate [Alphagan P 0.2% Ophth Soln] 1 drop RIGHT EYE BID 02/14/22 [History] Timolol 0.5% Ophth Soln [Timoptic 0.5% Ophth Soln] 1 drop BOTH EYES HS 02/14/22 [History] Atorvastatin [Lipitor] 20 mg PO DAILY 08/17/24 [History] Magnesium Oxide [Mag-Ox] 400 mg PO HS 08/17/24 [History] amLODIPine [Norvasc] 10 mg PO DAILY 08/17/24 [History] hydroCHLOROthiazide [Hydrodiuril] 12.5 mg PO DAILY 08/17/24 [History] Cefpodoxime Proxetil [Vantin] 200 mg PO Q12HR 4 Days #8 tab 08/19/24 [Rx] Ipratropium-Albuterol Nebulize [Duoneb 0.5 mg-3 mg/3 ml Soln] 3 ml INHALATION QID 30 Days #120 each 08/19/24 [Rx] methylPREDNISolone Dose Pack [Medrol Dose Pack] 4 mg PO DIRECTED #21 tab 08/19/24 [Rx] Follow up Appointment(s)/Referral(s): Saúl Randolph MD [Primary Care Provider] - 1-2 days Mehdi Chinchilla MD [STAFF PHYSICIAN] - 2 Weeks Jadyn Auguste MD [STAFF PHYSICIAN] - 1 Week Ambulatory/Diagnostic Orders: Basic Metabolic Panel [LAB.AMB] Time Frame: 3 Days, Location: None Selected Patient Instructions/Handouts: Community Acquired Pneumonia (DC) Activity/Diet/Wound Care/Special Instructions: Activity: As tolerated. Take breaks as needed. Diet: Heart healthy and carb consistent diet. Avoid salts, or foods with hidden salts such as canned or boxed foods and frozen dinners. Extra salt makes your heart work harder and traps the fluid in your body for longer. Special Instructions: Take all of your medications as directed and remember to keep all of your doctor's appointments and follow-up as needed. Continue scheduled nebulizer treatments 4 times daily for the next week and then you may transition to only as needed for shortness of breath and/or wheezing. Please complete entire antibiotic and steroid course as prescribed. Recommend holding your hydralazine for a few more days and resuming as previously prescribed on 08/24/2024 Thank you for allowing us to participate in your care, it was truly a pleasure having you for our patient!!! Wishing you and Armando a truly wonderful and blessed Thanksgiving! Discharge Disposition: HOME SELF-CARE
[2024-08-19 12:06] VITALS: PULSE 84
--- NOTE | 2024-08-19 20:34 | P.PN ---
Subjective Progress Note Date: 08/19/24 This is a 83-year-old female patient coming into the hospital because of a cough and congestion. The patient is producing mucus and her symptoms have been going on for the past 3 to 4 days. No reported aspiration. 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 Reviewed the chest x-ray and the patient is a chronic eventration of the left hemidiaphragm. There is also evidence of patchy airspace disease and some cardiomegaly. No reported aspiration. No altered mentation. No nausea vomiting or diarrhea. The viral screen has been negative and the blood work shows a BUN of 45 with a creatinine of 1.3 and a sodium levels at 140. White cell count is 11.7 with a hemoglobin 16.1 and a platelet count of 227. The patient is currently on oxygen at 2 L/min nasal cannula. Afebrile hemodynamically stable. Started on Rocephin and Zithromax. Started on IV Solu-Medrol. Started on IV fluids normal saline at 75 cc an hour. On 08/18/2024, the patient is doing extremely well. No significant shortness of breath. Cough and congestion is improved compared to yesterday. The patient remains on 2 L of oxygen by nasal cannula with a pulse ox of 90%. No reported aspiration. White cell count down to 8.9, hemoglobin is 14.4 and platelet count of 196. Electrolytes are all stable and within normal limits with a BUN of 43 and a creatinine of 1.1. UA was abnormal, awaiting urine cultures. Meanwhile, the patient remains on a combination of Rocephin and Zithromax. The patient is on DuoNeb nebulized treatments [id number]. The patient remains on IV Solu-Medrol 40 mg every 12 hours. No other significant events overnight. On 08/19/2024, the patient is being seen for a follow-up. No new complaints. Cough and congestion has subsided significantly. The patient feels that she is back to her baseline. She will be discharged home on a Medrol Dosepak and a course of Vantin 200 mg p.o. twice a day for the next 4 days. The white cell count is at 10.5, hemoglobin 13.6, creatinine is 1.4 with rest of the electrolytes being normal. The patient has no other specific complaints. Oxygenation is improved and the patient is currently on room air oxygen. The blood culture is positive for gram-positive cocci in clusters, likely contam inant. This is consistent with Staph epidermidis. Objective - Vital Signs Vital signs: Vital Signs Temp 97.3 F L 08/19/24 07:43 Pulse 78 08/19/24 08:54 Resp 16 08/19/24 07:43 BP 129/67 08/19/24 07:43 Pulse Ox 91 L 08/19/24 08:47 FiO2 Intake & Output 08/18/24 08/19/24 08/19/24 18:59 06:59 18:59 Intake Total 420 Balance 420 Intake: Oral 420 Other: # Voids 3 3 - Exam The patient appeared well nourished and normally developed. Vital signs as documented. The patient is currently on room air oxygen Head exam is unremarkable. No scleral icterus or corneal arcus noted. Neck is without jugular venous distension, thyromegaly, or carotid bruits. Carotid upstrokes are brisk bilaterally. Lungs diminished bilaterally along with bibasilar crackles, breath sounds are diminished in left lung base. Cardiac exam reveals the PMI to be normally sized and situated. Rhythm is regular. First and second heart sounds normal. No murmurs, rubs or gallops. Abdominal exam reveals normal bowel sounds, no masses, no organomegaly and no aortic enlargement. Extremities are nonedematous and both femoral and pedal pulses are normal. Examination of the skin revealed no evidence of significant rashes, suspicious appearing nevi or other concerning lesions. Neurologically, the patient is awake and alert and the patient does not have any focal neurological deficit. Cranial nerves are essentially intact. - Labs CBC & Chem 7: 08/19/24 02:46 08/19/24 02:46 Labs: Abnormal Lab Results - Last 24 Hours (Table) 08/18/24 08/19/24 08/19/24 Range/Units 11:08 02:46 02:46 WBC 10.53 H (4.50-10.00) X 10*3/uL RDW 15.4 H (11.5-14.5) % BUN 56.4 H (9.0-27.0) mg/dL Est GFR (CKD-EPI) 37 L (>=60) BUN/Creatinine Ratio 40.29 H (12.00-20.00) Ratio Glucose 159 H (70-110) mg/dL Magnesium 2.6 H 3.0 H (1.5-2.4) mg/dL Microbiology - Last 24 Hours (Table) 08/17/24 12:09 Blood Culture Gram Stain - Preliminary Blood Blood Culture - Preliminary Molecular ID Assessment and Plan Plan: Acute bronchitis/possible lower lobe pneumonia Acute hypoxic respiratory failure recovered and the patient is currently on room air oxygen 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 twice a day and a Medrol Dosepak . For discharge from pulmonary
== END 2024-08-19 13:41 | disposition home or self-care (01) | DRG 193 ==
LOC: EC 10:56 → 4SSUR 13:59
PROVIDERS: ADMIT Student in an Organized Health Care Education/Training Program; ATTEND Student in an Organized Health Care Education/Training Program
DX: J18.9 Pneumonia, unspecified organism (principal); J96.01 Acute respiratory failure with hypoxia; Q79.1 Other congenital malformations of diaphragm; N17.9 Acute kidney failure, unspecified; N39.0 Urinary tract infection, site not specified; J44.0 Chronic obstructive pulmonary disease with (acute) lower respiratory infection; R17 Unspecified jaundice; J20.9 Acute bronchitis, unspecified; I27.20 Pulmonary hypertension, unspecified; I10 Essential (primary) hypertension; H54.61 Unqualified visual loss, right eye, normal vision left eye; E78.5 Hyperlipidemia, unspecified; I08.0 Rheumatic disorders of both mitral and aortic valves; J84.10 Pulmonary fibrosis, unspecified; I49.3 Ventricular premature depolarization; Z79.899 Other long term (current) drug therapy; Z80.0 Family history of malignant neoplasm of digestive organs; Z87.11 Personal history of peptic ulcer disease; Z90.710 Acquired absence of both cervix and uterus; Z11.52 Encounter for screening for COVID-19; G51.0 Bell's palsy; Z96.1 Presence of intraocular lens; Z98.42 Cataract extraction status, left eye; Z98.51 Tubal ligation status
CPT/HCPCS: 36415; 71045; 71046; 80048; 80053; 81001; 83605; 83735; 85025; 85027; 85610; 85730; 87040; 87449; 87636; 93005; 93306; 94640; 94760; 96361; 96365; 96367; 96375; 99291

== ENCOUNTER → 2025-03-09 | Outpatient (CLI) | payer MEDICARE, OTHER ==
--- NOTE | 2025-03-09 15:09 | US ---
EXAMINATION TYPE: US arterial LE single level DATE OF EXAM: 03/09/2025 3:00 PM COMPARISONS: None. CLINICAL INDICATION: Female, 84 years old with history of M79.604 PAIN IN RIGHT LEG; right calf pain TECHNIQUE: Systolic pressures were taken of the upper and lower extremity arteries with ankle-brachia l indices and toe brachial indices calculated bilaterally. History of: Smoker: previous Hypertension: Takes medication Diabetic: No Hyperlipidemia: on meds TIA/CVA: No Previous Vascular Surgery: No CAD: No NH: No Vascular Ulcers: No Claudication: No Gangrene: No FINDINGS: Doppler Waveforms: Right: Biphasic Left: Biphasic Brachial Artery systolic pressure: Right: 152 Left: 158 Posterior Tibial artery systolic pressure: Right: 180 Left: 199 Dorsalis Pedis artery systolic pressure: Right: 187 Left: 191 Ankle-Brachial Indices: Right: 1.2 Left: 1.3 IMPRESSION: No suspicious changes to suggest significant flow-limiting stenosis [facility], , 03/09/2025 3:07 PM
== END | disposition home or self-care (01) ==
LOC: RADUSWWP 14:36
PROVIDERS: ATTEND Family Medicine
DX: M79.604 Pain in right leg (principal); E78.5 Hyperlipidemia, unspecified; I10 Essential (primary) hypertension; Z87.891 Personal history of nicotine dependence
CPT/HCPCS: 93922